=== PATIENT | female | born 1965 | race Caucasian/White ===

== ENCOUNTER 2016-12-15 18:39 | Emergency (ER) | payer OTHER ==
[~2016-12-15] VITALS: Ht 177.8 cm; Wt 93.0 kg
[~2016-12-15 18:39] MED LIST: DICL1GEL12 TOP; IBUP-103 PO; NRN600 PO; TRAZ50TA35 PO
[2016-12-15 18:44] VITALS: BP 125/85; PULSE 69; TEMP 37; O2SAT 96; Ht 177.8 cm; Wt 93.0 kg
[2016-12-15] MEDS ORDERED: SERT1TAB68 PO (19:48)
[2016-12-15] MEDS ORDERED: DIVA500T59 PO (19:48)
[2016-12-15] MEDS ORDERED: ABL10 PO (19:48)
[2016-12-15] MEDS ORDERED: IBUP-1451 PO (20:02)
[2016-12-15] MEDS ORDERED: HYDR-5688 PO (20:04)
[2016-12-15] MEDS ORDERED: MoRPHine SULFATE 10 MG/ML CARP/VIAL IM STA (20:09)
[2016-12-15] MEDS ORDERED: DEXAMETHASONE INJ 10 MG in SYRINGE 0 ML IV ONE (20:15)
--- NOTE | 2016-12-19 08:57 | EMERGENCY ROOM VISIT NOTE ---
ED Visit Note First contact with patient: 18:56 Chief Complaint: Lumbar back pain. History of Present Illness: Ms. Kulkarni is a 51-year-old white female who is brought into the ED via wheelchair accompanied by female friend complaining of lumbar back pain. Historically patient reports she has a history of chronic back pain and was recently seen at a local pain management clinic. At that time steroid injections were discussed and is supposed to start in approximately one week. Additionally from her medical records she had an MRI performed of the lumbar spine on October 13 and showed L3-L4 and L4-L5 minimal disc bulging with mild facet arthrosis and L5-S1 disc space narrowing. Patient reports she has been having increasing pain over the last 2 weeks in the lumbar spine. She describes it as a band over the L4 to S1 area across the lower back. She describes her pain as a sharp sensation. She rates her discomfort 10/10. There is minimal radiation into the upper buttock area bilaterally. Her pain worsens with all movements of the back, palpation and positional changes. She has not identified any alleviating factors related to the pain. She does report she has been using Voltaren and ibuprofen without relief of her discomfort. She denies any associated symptoms including fevers, chills, sweats, skin eruptions,, neck and thoracic back pain, abdominal pain, nausea, vomiting, diarrhea, constipation, rectal bleeding, black/tarry stools, urinary symptoms, hematuria, vaginal bleeding, vaginal discharge, bowel and bladder dysfunction, rectal/genital paresthesias, lower extremity weakness/ numbness/tingling. Review of Systems: As noted above in history of present illness. 8 body systems were reviewed and found to be negative as noted above. Past Medical History: As previously noted, status post cholecystectomy, bladder surgery with sleeping, partial hysterectomy, drug and alcohol abuse. Current Medications: Medications Dose Route/Sig Max Daily Dose Days Date Category Dose Instructions Motrin (Ibuprofen) 800 Mg Tab 800 Mg PO UD PRN 12/15/16 Reported Trazodone (Trazodone HCl) 50 Mg Tab 50-100 Mg PO HS PRN 11/05/16 Reported Gabapentin 600 Mg Tab 600 Mg PO QID 11/05/16 Reported Voltaren 1% Top Gel (Diclofenac Sodium (Topical)) 1 % Gel 1 Appln TOP BID 11/05/16 Reported Abilify (Aripiprazole) 10 Mg Tab 10 Mg PO DAILY 10/12/16 Reported Depakote (Divalproex Sodium) 500 Mg Tab 500 Mg PO BID 10/12/16 Reported Zoloft (Sertraline Hcl) 100 Mg Tab 200 Mg PO DAILY 10/12/16 Reported Allergies to Medications: Latex. Social History: Patient is currently employed; she feels safe in her home environment; she admits to tobacco use and denies alcohol use. Physical Examination: Vital Signs: Date Time Temp Pulse Resp B/P Pulse Ox O2 Delivery O2 Flow Rate FiO2 12/15/16 18:44 37.0 69 17 125/85 96 Room Air GENERAL: 51-year-old female in moderate distress due to pain, nontoxic-appearing , afebrile and hemodynamically stable. NEUROLOGICAL: Awake, alert and oriented to person, place and time. Answering questions appropriately and following commands. Normal gait. Good hand eye coordination. No focal motor sensory deficits. SKIN: Warm, dry and pink. No soft tissue eruptions or trauma noted. HEENT: Atraumatic and normocephalic. PERRLA. Sclera white and conjunctiva pink. No drainage from naris. Oral cavity moist and pink. Pharynx is nonerythematous or edematous. Speech normal. No lymphadenopathy. Trachea midline. No jugular venous distention. BACK: No tenderness over the bony cervical and thoracic spine. No CVA tenderness. Moderate tenderness diffusely through the lumbar spine predominantly over the L4-L5 area but also the related paraspinous musculature without spasm. No bony deformity, bony crepitus, step-offs or ecchymosis. Negative straight leg raise test. THORAX: Lungs sounds are clear to auscultation and equal bilaterally with symmetrical chest wall. No wheezing, rales or rhonchi. No crepitus, tenderness , subcutaneous air or deformities noted. HEART: Regular rate and rhythm. No gallops, rubs or murmurs are appreciated. ABDOMEN: Flat, soft and nontender. Positive bowel sounds in all quadrants. No guarding, rigidity or organomegaly. LOWER EXTREMITIES: No gross bony deformity. 5/5 muscle strength in flexion, extension, abduction and abduction of the hips, flexion and extension of the knees, plantar flexion and dorsiflexion of the ankles and flexion and extension of the great toes. 2+ patellar and Achilles tendon reflexes intact and equal bilaterally. She is able to distinguish light sensations through all dermatomes of lower legs and feet. No dependent edema. No calf tenderness or cords. Feet warm and pink and capillary refill is brisk. ED Course: Patient is assessed as noted above. Patient was given IM injections of 10 mg of morphine and 10 mg of Decadron. Patient was educated about tonight's findings and instructed on her treatment plan; she verbalizes understanding and agreement with this plan. Clinical Impression: Acute on chronic back pain. Disposition: Patient discharged home in stable condition accompanied by female friends; prior to departure she was reassessed and rated her discomfort 9/10. Plan: Comfort measures were discussed with the patient a sliding pain medicine scale of ibuprofen, acetaminophen and [place]; appropriate narcotic precautions were given to the patient, rest, ice, proper lifting movements. Patient was encouraged to follow-up with pain management and inform them of today's ED visit. Patient was encouraged return ED for uncontrolled pain, fevers, genital/rectal paresthesias, bowel and bladder dysfunction or lower extremity weakness/numbness /tingling or any new/concerning symptoms.
[2016-12-22] MEDS ORDERED: BUPR-83 PO (15:06)
[2017-06-16] MEDS ORDERED: TRAZ50TA35 PO (15:51)
[2017-06-16] MEDS ORDERED: ULT50X PO (15:51)
[2017-08-07] MEDS ORDERED: CLN150 PO (08:26)
== END 2016-12-15 20:57 | disposition home or self-care (01) ==
LOC: C.EDB 18:41 → C.EDD 20:57
DX: M54.5 Low back pain (principal); G89.29 Other chronic pain; F17.200 Nicotine dependence, unspecified, uncomplicated; Z90.49 Acquired absence of other specified parts of digestive tract

== ENCOUNTER 2017-06-15 12:01 | Observation (INO) | payer OTHER ==
[~2017-06-15] VITALS: Ht 177.8 cm; Wt 96.6 kg
[~2017-06-15 12:01] MED LIST changes: +ABL10 PO; +BUPR-83 PO; +DIVA500T59 PO; +HYDR-5688 PO; -IBUP-103 PO; +IBUP-1451 PO; +SERT1TAB68 PO
[2017-06-15] MEDS ORDERED: WLLSR/150 PO (12:43)
[2017-06-15] MEDS ORDERED: BACL10TA PO (12:43)
[2017-06-15] MEDS ORDERED: OXYB5TAB74 PO (12:43)
[2017-06-15] MEDS ORDERED: DICY10CA55 PO (12:43)
[2017-06-15] MEDS ORDERED: ATOR10TA88 PO (12:43)
[2017-06-15] MEDS ORDERED: MELO7.5T5 PO (12:43)
[2017-06-15] MEDS ORDERED: MELO15TA4 PO (12:44)
[2017-06-15] MEDS ORDERED: ASPIRIN 81 MG CHEW PO STA (12:59)
[2017-06-15] MEDS ORDERED: NITROGLYCERIN 0.4 MG SL PER TAB CHARGE SL STA ×2 (12:59→13:23)
--- NOTE | 2017-06-15 13:00 | EMERGENCY ROOM VISIT NOTE ---
History Report prepared by Christy: Afsaneh Martino Under the Supervision of: Dr. Enzo Massey M.D. First contact with patient: 12:51 Chief Complaint: CARDIAC ASSESSMENT Stated Complaint: CHEST PRESSURE,UPPER BACK PAIN Nursing Triage Summary: Pt c/o mid sternal chest pain for approx 2 hours, dull pain, 6/10. States she felt nauseous and run down all weekend. Radiates to upper back. History of Present Illness The patient is a 52 year old female who presents to the Emergency Room with complaints of constant chest pressure beginning 4 hours ago. The patient states that she has not been feeling well over the weekend and has been feeling tired and nauseous. She reports that when she was getting ready for work this morning she began to have chest pressure that radiates to her upper back. She complains of intermittent diaphoresis and a headache. The patient denies any arm pain, vomiting, abdominal pain, shortness of breath, and recent travel. She notes that her pain is not worsened by anything. The patient rates her pain as a 6/10 in severity. Source of History: patient Onset: 4 hours ago Position: chest Symptom Intensity: 6/10 Quality: pressure Timing: constant Modifying Factors (Worsening): other (none) Associated Symptoms: + diaphoresis, + nausea, + back pain, No SOB, No vomiting, No abdominal pain Note: Pt denies any arm pain. Review of Systems See HPI for pertinent positives & negatives. A total of 10 systems reviewed and were otherwise negative. Past Medical & Surgical Medical Problems: (1) Bipolar disorder (2) Chronic back pain (3) Fibula fracture (4) Migraines Surgical Problems: (1) H/O arthroscopic knee surgery (2) History of partial hysterectomy (3) Hx of bladder repair surgery (4) Hx of cholecystectomy Old medical records were reviewed. Nurse's notes were reviewed and I agree with. Family History FH: Parkinson's disease FH: asthma FHx: cancer Social History Smoking Status: Current Every Day Smoker Drug Use: none Marital Status: Occupation Status: employed Current/Historical Medications Scheduled Aripiprazole (Abilify), 10 MG PO DAILY Atorvastatin (Lipitor), 10 MG PO DAILY Baclofen (Lioresal), 10 MG PO TID Bupropion Hcl (Wellbutrin Sr), 150 MG PO DAILY Divalproex Sodium (Depakote), 500 MG PO BID Gabapentin (Gabapentin), 600 MG PO QID Meloxicam (Meloxicam), 15 MG PO DAILY Oxybutynin Chloride (Ditropan), 5 MG PO DAILY Sertraline Hcl (Zoloft), 200 MG PO DAILY Trazodone Hcl (Trazodone), 100 MG PO HS Scheduled PRN Dicyclomine Hcl (Bentyl), 10 MG PO TID PRN for abdominal pain Allergies Coded Allergies: Latex (Verified Allergy, Unknown, anaphalaxis, 06/15/17) Physical Exam Vital Signs Date Time Temp Pulse Resp B/P (MAP) Pulse Ox O2 Delivery O2 Flow Rate FiO2 06/15/17 16:38 72 06/15/17 14:49 70 16 125/89 94 Room Air 06/15/17 14:03 68 18 131/82 99 Room Air 06/15/17 13:50 75 18 137/87 100 Room Air 06/15/17 13:28 103 24 132/94 96 Room Air 06/15/17 13:18 111 22 132/97 94 Room Air 06/15/17 13:11 83 22 141/95 98 Room Air 06/15/17 12:36 95 Room Air 06/15/17 12:30 99 06/15/17 12:14 98 Room Air 06/15/17 12:11 36.5 96 18 150/92 98 Room Air Physical Exam General: Well developed well nourished middle aged female in no acute distress, breathing comfortably on room air. Normal speech HEENT: Normal cephalic atraumatic. Pupils are equal round and reactive to light. Extraocular movements are intact. Oropharynx is pink with moist mucous membranes. No swelling of the mouth lips or tongue. Neck: Supple with a midline trachea. No meningeal signs or stiffness, no JVD or bruits. No Stridor. Chest: Clear to auscultation bilaterally. No wheezes or rhonchi. No increased work of breathing. Heart: regular rate and rhythm. Abdomen: Soft nontender, nondistended without rebound guarding or rigidity. Extremities: No cyanosis clubbing or edema. No calf tenderness or assymetry Spine/Back. Non tender to palpation. No CVA tenderness Skin: Good turgor without rashes. Neurologic exam: Cranial nerves two through 12 are intact. Motor and sensation are intact and symmetrical throughout. Medical Decision & Procedures ER Provider Diagnostic Interpretation: X-ray results as stated below per interpretation by me and the radiologist: CHEST ONE VIEW PORTABLE FINDINGS: Lung volumes are normal. No pneumothorax or pleural effusion is present. There is no consolidation. Pulmonary vascularity is normal. Cardiomediastinal silhouette is normal. IMPRESSION: No acute cardiopulmonary findings. Electronically signed by: Damon English M.D. 06/15/2017 1:33 PM Dictated Date/Time: 06/15/2017 1:33 PM Laboratory Results 06/15/17 13:54 Red Blood Count 4.92, Mean Corpuscular Volume 91.9, Mean Corpuscular Hemoglobin 32.3, Mean Corpuscular Hemoglobin Concent 35.2, Mean Platelet Volume 9.4, Neutrophils (%) (Auto) 50.2, Lymphocytes (%) (Auto) 40.3, Monocytes (%) (Auto) 5.4, Eosinophils (%) (Auto) 3.4, Basophils (%) (Auto) 0.6, Neutrophils # (Auto) 5.01, Lymphocytes # (Auto) 4.03, Monocytes # (Auto) 0.54, Eosinophils # (Auto) 0.34, Basophils # (Auto) 0.06 06/15/17 13:54 Test 06/15/17 13:06 06/15/17 13:54 Bedside D-Dimer 409 ng/mlFEU (0-450) Bedside Troponin I < 0.030 ng/ml (0-0.045) White Blood Count 9.99 K/uL (4.8-10.8) Red Blood Count 4.92 M/uL (4.2-5.4) Hemoglobin 15.9 g/dL (12.0-16.0) Hematocrit 45.2 % (37-47) Mean Corpuscular Volume 91.9 fL (80-100) Mean Corpuscular Hemoglobin 32.3 pg (25-34) Mean Corpuscular Hemoglobin Concent 35.2 g/dl (32-36) Platelet Count 276 K/uL (130-400) Mean Platelet Volume 9.4 fL (7.4-10.4) Neutrophils (%) (Auto) 50.2 % Lymphocytes (%) (Auto) 40.3 % Monocytes (%) (Auto) 5.4 % Eosinophils (%) (Auto) 3.4 % Basophils (%) (Auto) 0.6 % Neutrophils # (Auto) 5.01 K/uL (1.4-6.5) Lymphocytes # (Auto) 4.03 K/uL (1.2-3.4) Monocytes # (Auto) 0.54 K/uL (0.11-0.59) Eosinophils # (Auto) 0.34 K/uL (0-0.5) Basophils # (Auto) 0.06 K/uL (0-0.2) RDW Standard Deviation 43.1 fL (36.4-46.3) RDW Coefficient of Variation 12.9 % (11.5-14.5) Immature Granulocyte % (Auto) 0.1 % Immature Granulocyte # (Auto) 0.01 K/uL (0.00-0.02) Prothrombin Time 10.2 SECONDS (9.0-12.0) Prothromb Time International Ratio 1.0 (0.9-1.1) Activated Partial Thromboplast Time 25.8 SECONDS (21.0-31.0) Partial Thromboplastin Ratio 1.0 Anion Gap 6.0 mmol/L (3-11) Est Creatinine Clear Calc Drug Dose 106.3 ml/min Estimated GFR () 99.6 Estimated GFR (Non- 86.0 BUN/Creatinine Ratio 21.4 (10-20) Calcium Level 9.6 mg/dl (8.5-10.1) Total Bilirubin 0.2 mg/dl (0.2-1) Direct Bilirubin < 0.1 mg/dl (0-0.2) Aspartate Amino Transf (AST/SGOT) 15 U/L (15-37) Alanine Aminotransferase (ALT/SGPT) 29 U/L (12-78) Alkaline Phosphatase 115 U/L (45-117) Total Creatine Kinase 42 U/L (26-192) Creatine Kinase MB 0.5 ng/ml (0.5-3.6) Creatine Kinase MB Ratio 1.2 (0-3.0) Total Protein 7.3 gm/dl (6.4-8.2) Albumin 3.8 gm/dl (3.4-5.0) Lipase 117 U/L (73-393) Thyroid Stimulating Hormone (TSH) 1.320 uIu/ml (0.300-4.500) Valproic Acid (Depakene) Level 3 mcg/ml (50-100) Laboratory studies as stated above per my review. Medications Administered Medications (Trade) Dose Ordered Sig/Concha Route Start Time Stop Time Status Last Admin Dose Admin Aspirin (Aspirin Chew) 324 mg NOW STAT PO 06/15/17 12:59 06/15/17 13:03 DC 06/15/17 13:09 324 MG Nitroglycerin (Nitrostat Tab) 0.4 mg NOW STAT SL 06/15/17 12:59 06/15/17 13:03 DC 06/15/17 13:11 0.4 MG Nitroglycerin (Nitrostat Tab) 0.4 mg NOW STAT SL 06/15/17 13:23 06/15/17 13:25 DC 06/15/17 13:28 0.4 MG Sodium Chloride 1,000 ml @ 999 mls/hr Q1H1M STAT IV 06/15/17 13:41 06/15/17 14:41 DC 06/15/17 13:48 999 MLS/HR Sodium Chloride 1,000 ml @ 150 mls/hr Q6H40M ONCE IV 06/15/17 13:41 06/15/17 20:20 06/15/17 14:18 150 MLS/HR Morphine Sulfate (MoRPHine SULFATE INJ) 4 mg NOW STAT IV 06/15/17 13:41 06/15/17 13:42 DC 06/15/17 13:49 4 MG Ondansetron HCl (Zofran Inj) 4 mg NOW STAT IV 06/15/17 13:41 06/15/17 13:42 DC 06/15/17 13:48 4 MG Al Hydroxide/Mg Hydroxide (Maalox Susp) 30 ml STK-MED ONCE .ROUTE 06/15/17 15:42 06/15/17 15:43 DC 06/15/17 15:45 30 ML Lidocaine HCl (Viscous Lidocaine 2% Soln) 20 ml STK-MED ONCE .ROUTE 06/15/17 15:43 06/15/17 15:44 DC 06/15/17 15:45 20 ML Morphine Sulfate (MoRPHine SULFATE INJ) 4 mg STK-MED ONCE .ROUTE 06/15/17 16:25 06/15/17 16:26 DC 06/15/17 16:29 4 MG ECG Indication: chest pain Rate (beats per minute): 77 Rhythm: normal sinus Findings: no acute ischemic change, no ectopy Comparison ECG Date: no prior available Change: EKG #2: Normal Sinus 67, no ischemic changes, no ectopy, compared to EKG #1 no changes. ED Course 2150: Past medical records reviewed. The patient was evaluated in room B2, and a complete history and physical examination were performed. 1259: Nitroglycerin 0.4mg SL, Aspirin Chew 324mg PO. 1323: Nitroglycerin 0.4mg SL. 1341: Zofran Inj 4mg IV, Morphine Sulfate 4mg IV, Sodium Chloride 1000 ml @ 150 mls/hr IV, Sodium Chloride 1000 ml @ 999 mls/hr IV. 1352: I reevaluated and updated the patient. She had no relief with the nitroglycerin. 1419: I reevaluated the patient. She is feeling better. 1501: I reevaluated the patient. She is feeling more comfortable. 1508: Discussed the patient's case with Dr. Douglass of [facility]. The patient will be evaluated for further management. 1515: Upon reevaluation, the patient is doing well. I discussed the results and treatment plan with the patient. She verbalized agreement of the treatment plan. The patient will be evaluated for further management. Medical Decision Differential diagnosis includes acute coronary, syndrome arrhythmia, PE, musculoskeletal, GERD. This patient comes in as described above. She's had chest pain since this morning. it is central. She looks well on exam except for having some sinus tachycardia. It is not reproducible or pleuritic. IV access was established was given aspirin 325 mg chewable. She was also given nitroglycerin 2 sublingual. EKG does not suggest acute coronary syndrome or arrhythmia. Multiple blood testing was obtained as well as chest x-ray. Second EKG shows no change. EKG #1 and they're both nonischemic appearing her cardiac biomarkers are negative. D-dimer is negative at a low pretest probability said he makes PE highly unlikely. Chest x-ray does not suggest congestive heart failure pneumonia or pneumothorax. She's had no acute electrolyte or metabolic abnormalities. The nitroglycerin did not seem to help. She was given morphine 4 mg IV and Zofran 4 mg IV. This did seem to help and she seemed much more comfortable. She does have cardiac risk factors of being a smoker and having high blood pressure. Her symptoms are somewhat atypical but they're also not reproducible or GI sounding. I have consulted the [facility] hospitalist for likely observation for further treatment and evaluation. The patient was in agreement of the plan. Medication Reconcilliation Current Medication List: was personally reviewed by me Blood Pressure Screening Patient's blood pressure: Elevated blood pressure Blood pressure disposition: Elevated BP felt to be situational Consults Time Called: 1505 Consulting Physician: Dr. Rafat Jorge Returned Call: 1508 Discussed the patient's case with Dr. Douglass of [facility]. The patient will be evaluated for further management. Impression Primary Impression: Precordial chest pain Scribe Attestation The scribe's documentation has been prepared under my direction and personally reviewed by me in its entirety. I confirm that the note above accurately reflects all work, treatment, procedures, and medical decision making performed by me. Departure Information Dispostion Being Evaluated By Hospitalist Referrals Victorina Dotson D.O. (PCP) Patient Instructions My [facility]
[2017-06-15 13:26] LABS: POINT OF CARE TROPONIN I < 0.030 ng/ml (0-0.045)
--- NOTE | 2017-06-15 13:35 | DIAGNOSTIC IMAGING REPORT ---
CHEST ONE VIEW PORTABLE CLINICAL HISTORY: Chest pain. Upper back pain. Chest pressure. COMPARISON STUDY: Chest radiograph November 05, 2016. FINDINGS: Lung volumes are normal. No pneumothorax or pleural effusion is present. There is no consolidation. Pulmonary vascularity is normal. Cardiomediastinal silhouette is normal. IMPRESSION: No acute cardiopulmonary findings. Electronically signed by: Damon English M.D. 06/15/2017 1:33 PM Dictated Date/Time: 06/15/2017 1:33 PM
[2017-06-15] MEDS ORDERED: ONDANSETRON INJ 2 MG/ML 2 ML VIAL IV STA (13:41)
[2017-06-15] MEDS ORDERED: SODIUM CHLORIDE 0.9% 1000ML 1,000 ML IV ONE (13:41)
[2017-06-15] MEDS ORDERED: SODIUM CHLORIDE 0.9% 1000ML 1,000 ML IV STA (13:41)
[2017-06-15] MEDS ORDERED: MoRPHine SULFATE 4 MG/ML 1 ML CARP\\VIAL IV STA (13:41)
[2017-06-15 14:10] LABS: BASO % 0.6 %; BASO ABS # 0.06 K/uL (0-0.2); COMPLETE YES; EOS % 3.4 %; HEMATOCRIT 45.2 % (37-47); IG% 0.1 %; LYMPH % 40.3 %; LYMPH ABS # 4.03 K/uL (1.2-3.4); MEAN CELL VOLUME 91.9 fL (80-100); MEAN CORPUSCULAR HEMOGLOBIN 32.3 pg (25-34); MEAN CORPUSCULAR HGB CONC 35.2 g/dl (32-36); MEAN PLATELET VOLUME 9.4 fL (7.4-10.4); MONO % 5.4 %; NEUT % 50.2 %; PLATELET COUNT 276 K/uL (130-400); RED BLOOD COUNT 4.92 M/uL (4.2-5.4); WHITE BLOOD COUNT 9.99 K/uL (4.8-10.8)
[2017-06-15 14:27] LABS: ALT/SGPT 29 U/L (12-78); BLOOD UREA NITROGEN 17 mg/dl (7-18); BUN/CREATININE RATIO 21.4 (10-20); CALCIUM 9.6 mg/dl (8.5-10.1); CARBON DIOXIDE 29 mmol/L (21-32); CHLORIDE 107 mmol/L (98-107); GLUCOSE 73 mg/dl (70-99); POTASSIUM 3.6 mmol/L (3.5-5.1); SODIUM 142 mmol/L (136-145)
[2017-06-15 14:32] LABS: PROTHROMBIN TIME (PATIENT) 10.2 SECONDS (9.0-12.0)
[2017-06-15 14:38] LABS: ALKALINE PHOSPHATASE 115 U/L (45-117); AST/SGOT 15 U/L (15-37); CKMB/CK RATIO 1.2 (0-3.0)
[2017-06-15] MEDS ORDERED: ALUMINUM/MAGNESIUM SUSP 30 ML UDC ONE (15:42)
[2017-06-15] MEDS ORDERED: LIDOCAINE HCL 2% VISC SOLN 20 ML UDC ONE (15:43)
[2017-06-15] MEDS ORDERED: ACETAMINOPHEN 325 MG TAB PO PRN (15:45)
[2017-06-15] MEDS ORDERED: ONDANSETRON INJ 2 MG/ML 2 ML VIAL IV PRN (15:45)
[2017-06-15] MEDS ORDERED: NITROGLYCERIN 0.4 MG SL PER TAB CHARGE SL PRN (15:45)
[2017-06-15] MEDS ORDERED: GI COCKTAIL PO ONE (15:45)
[2017-06-15] MEDS ORDERED: IV FLUIDS COMPLETED PRN (16:15)
[2017-06-15] MEDS ORDERED: MoRPHine SULFATE 4 MG/ML 1 ML CARP\\VIAL ONE (16:25)
--- NOTE | 2017-06-15 16:33 | History and Physical ---
History & Physical Date & Time of Service: Jun 15, 2017 ~ 15:15 Chief Complaint: Chest Pain Primary Care Physician: Victorina Dotson D.O. History of Present Illness 52 year old female who presents to the ER with chest pain. Patient reports she was feeling poorly over the weekend with nausea, fatigue, and episodes of diaphoresis. She reports yesterday she had a few episodes of chest / epigastric pain. She denies any specific causative factors and symptoms would resolve on their own. She reports she had a restless night of sleep last night with discomfort. This morning when she woke up the discomfort was more persistent. She describes it as a burning and squeezing sensation with radiation to the back. She rates the pain #8/10 at its worst. Pain is located in the epigastric area / lower mid chest with mild radiation into the left side of the chest. She denies any associated jaw, neck, shoulder, or arm pain. She received two SL nitro in the ED without any improvement in the pain and then received IV Morphine with some relief. She reports feeling occasional palpitations. No shortness of breath. She denies lightheadedness, dizziness, or syncopal events. No vomiting or diarrhea. She denies fever and chills. No urinary symptoms. In the ER, initial troponin is negative, EKG does not show any acute ST changes. Vitals are stable. Past Medical/Surgical History Medical Problems: (1) Bipolar disorder Status: Chronic (2) Chronic back pain Status: Chronic (3) Fibula fracture Permanent Comment: R, s/p ORIF Status: Chronic (4) Migraines Status: Chronic Surgical Problems: (1) H/O arthroscopic knee surgery Status: Chronic (2) History of partial hysterectomy Status: Chronic (3) Hx of bladder repair surgery Status: Chronic (4) Hx of cholecystectomy Status: Chronic Family History FH: CAD (coronary artery disease) GRANDFATH[place] FH: Parkinson's disease MOTHER Social History Smoking Status: Current Every Day Smoker Alcohol Use: none Drug Use: none Immunizations History of Influenza Vaccine: Yes Influenza Vaccine Date: Oct 09, 2016 Allergies Coded Allergies: Latex (Verified Allergy, Unknown, anaphalaxis, 06/15/17) Home Medications Scheduled Aripiprazole (Abilify), 10 MG PO DAILY Atorvastatin (Lipitor), 10 MG PO DAILY Baclofen (Lioresal), 10 MG PO TID Bupropion Hcl (Wellbutrin Sr), 150 MG PO DAILY Divalproex Sodium (Depakote), 500 MG PO BID Gabapentin (Gabapentin), 600 MG PO QID Meloxicam (Meloxicam), 15 MG PO DAILY Oxybutynin Chloride (Ditropan), 5 MG PO DAILY Sertraline Hcl (Zoloft), 200 MG PO DAILY Trazodone Hcl (Trazodone), 100 MG PO HS Scheduled PRN Dicyclomine Hcl (Bentyl), 10 MG PO TID PRN for abdominal pain Review of Systems ROS per HPI, all other systems reviewed and negative Physical Exam Vital Signs Date Time Temp Pulse Resp B/P (MAP) Pulse Ox O2 Delivery O2 Flow Rate FiO2 06/15/17 14:49 70 16 125/89 94 Room Air 06/15/17 14:03 68 18 131/82 99 Room Air 06/15/17 13:50 75 18 137/87 100 Room Air 06/15/17 13:28 103 24 132/94 96 Room Air 06/15/17 13:18 111 22 132/97 94 Room Air 06/15/17 13:11 83 22 141/95 98 Room Air 06/15/17 12:36 95 Room Air 06/15/17 12:30 99 06/15/17 12:14 98 Room Air 06/15/17 12:11 36.5 96 18 150/92 98 Room Air General Appearance: no apparent distress Head: normocephalic Eyes: normal inspection ENT: hearing grossly normal Neck: supple, no JVD Respiratory/Chest: chest non-tender, lungs clear, normal breath sounds, no respiratory distress Cardiovascular: regular rate, rhythm, no edema, normal peripheral pulses Abdomen/GI: normal bowel sounds, non tender, soft Extremities/Musculoskelatal: normal inspection, no calf tenderness Neurologic/Psych: no motor/sensory deficits, alert, normal mood/affect, oriented x 3 Skin: normal color, warm/dry Diagnostics Laboratory Results Results Past 24 Hours Test 06/15/17 12:59 06/15/17 13:06 06/15/17 13:54 Range/Units Creatine Kinase MB Ratio 1.2 0-3.0 Bedside D-Dimer 409 0-450 ng/mlFEU Bedside Troponin I < 0.030 0-0.045 ng/ml White Blood Count 9.99 4.8-10.8 K/uL Red Blood Count 4.92 4.2-5.4 M/uL Hemoglobin 15.9 12.0-16.0 g/dL Hematocrit 45.2 37-47 % Mean Corpuscular Volume 91.9 80-100 fL Mean Corpuscular Hemoglobin 32.3 25-34 pg Mean Corpuscular Hemoglobin Concent 35.2 32-36 g/dl Platelet Count 276 130-400 K/uL Mean Platelet Volume 9.4 7.4-10.4 fL Neutrophils (%) (Auto) 50.2 % Lymphocytes (%) (Auto) 40.3 % Monocytes (%) (Auto) 5.4 % Eosinophils (%) (Auto) 3.4 % Basophils (%) (Auto) 0.6 % Neutrophils # (Auto) 5.01 1.4-6.5 K/uL Lymphocytes # (Auto) 4.03 1.2-3.4 K/uL Monocytes # (Auto) 0.54 0.11-0.59 K/uL Eosinophils # (Auto) 0.34 0-0.5 K/uL Basophils # (Auto) 0.06 0-0.2 K/uL RDW Standard Deviation 43.1 36.4-46.3 fL RDW Coefficient of Variation 12.9 11.5-14.5 % Immature Granulocyte % (Auto) 0.1 % Immature Granulocyte # (Auto) 0.01 0.00-0.02 K/uL Prothrombin Time 10.2 9.0-12.0 SECONDS Prothromb Time International Ratio 1.0 0.9-1.1 Activated Partial Thromboplast Time 25.8 21.0-31.0 SECONDS Partial Thromboplastin Ratio 1.0 Sodium Level 142 136-145 mmol/L Potassium Level 3.6 3.5-5.1 mmol/L Chloride Level 107 98-107 mmol/L Carbon Dioxide Level 29 21-32 mmol/L Anion Gap 6.0 3-11 mmol/L Blood Urea Nitrogen 17 7-18 mg/dl Creatinine 0.80 0.60-1.20 mg/dl Est Creatinine Clear Calc Drug Dose 106.3 ml/min Estimated GFR () 99.6 Estimated GFR (Non- 86.0 BUN/Creatinine Ratio 21.4 10-20 Random Glucose 73 70-99 mg/dl Calcium Level 9.6 8.5-10.1 mg/dl Total Bilirubin 0.2 0.2-1 mg/dl Direct Bilirubin < 0.1 0-0.2 mg/dl Aspartate Amino Transf (AST/SGOT) 15 15-37 U/L Alanine Aminotransferase (ALT/SGPT) 29 12-78 U/L Alkaline Phosphatase 115 45-117 U/L Total Creatine Kinase 42 26-192 U/L Creatine Kinase MB 0.5 0.5-3.6 ng/ml Total Protein 7.3 6.4-8.2 gm/dl Albumin 3.8 3.4-5.0 gm/dl Lipase 117 73-393 U/L Thyroid Stimulating Hormone (TSH) 1.320 0.300-4.500 uIu/ml Valproic Acid (Depakene) Level 3 50-100 mcg/ml Diagnostic Radiology CXR IMPRESSION: No acute cardiopulmonary findings. Impression Assessment and Plan CHEST / EPIGASTRIC PAIN - admit to tele - patient presenting with symptoms of fatigue and nausea x 3 days, and lower chest / epigastric discomfort that developed yesterday and became more persistent today - risk factors for ACS: tobacco use, HLD - in the ER, initial troponin negative, EKG without acute ST changes - no relief in pain with SL nitro or GI cocktail, mild relief with IV Morphine - will obtain CTA chest to evaluate for dissection - noted normal D. Dimer - suspect symptoms are GI in nature, however will rule out ACS - continue to cycle cardiac enzymes, dobutamine stress in AM (patient unable to exercise due to chronic pain / hx of right fibula fracture) - s/p full dose ASA in ED, will continue with 81mg daily - continue statin, check lipid panel in AM - start PPI CHRONIC BACK PAIN - continue gabapentin BIPOLAR DISORDER - continue trazodone, bupropion, sertraline, Depakote, and Abilify DVT PROPHYLAXIS - SQ Lovenox DISPO - The patient will be placed as observation status for now until further work up is complete. Attending addendum: Agree with the above H&P; please refer to above for more detail Patient presents with constant chest pain that has been worse today and reports some radiation into her back. Chest pain is just left of the sternum in the mid to lower chest. Denies any association with breathing or food intake. Denies any GERD/heartburn symptoms. Cardiac: RR, S1 and S2 auscultated; chest pain not reproducible Resp: CTA B/L, no wheezes or rales GI: soft, NT, ND, +BS CHEST PAIN: atypical -most likely related to GI source although patient denies any improvement in pain following GI cocktail -per patient was not relieved by nitro either -had some relief with morphine but patient states her pain a 6 but appears completely comfortable -doubt ACS; will order serial CMs and TTE -CT to rule out dissection -D dimer negative so unlikely PE VTE Prophylaxis VTE Risk Assessment Done? Y/N: Yes Risk Level: Moderate
[2017-06-15 16:47] VITALS: BP 125/89; PULSE 70; TEMP 36.5; O2SAT 97; Ht 177.8 cm; Wt 96.6 kg
[2017-06-15 17:03] VITALS: O2SAT 94
[2017-06-15] MEDS ORDERED: OPTIRAY 320 IV PRN (17:30)
--- NOTE | 2017-06-15 17:32 | DIAGNOSTIC IMAGING REPORT ---
Study: CT angiography of the chest. HISTORY: Chest pain FINDINGS: Pulmonary arterial vasculature enhances appropriately. No major filling defects. Thoracic aorta is normal in course and caliber. No evidence for aneurysm or dissection. Lungs are clear. Several upper abdominal varices. Prior cholecystectomy. 1 cm stable splenic arterial aneurysm. IMPRESSION: 1. Negative thoracic aorta. 2. Lungs are clear. 3. No evidence for pulmonary embolus. Electronically signed by: Thierno Sims M.D. 06/15/2017 5:31 PM Dictated Date/Time: 06/15/2017 5:27 PM
[2017-06-15 17:39] VITALS: BP 137/91; PULSE 73; TEMP 36.5; O2SAT 97
[2017-06-15] MEDS ORDERED: MoRPHine SULFATE 4 MG/ML 1 ML CARP\\VIAL IV ONE (17:39)
[2017-06-15] MEDS: PANTOprazole SOD 40 MG TAB PO SCH (18:28)
[2017-06-15] MEDS: GABAPENTIN 600 MG TAB PO SCH ×2 (18:28→21:08)
[2017-06-15 20:07] VITALS: BP 101/67; PULSE 65; TEMP 36.7; O2SAT 95
[2017-06-15] MEDS ORDERED: ENOXAPARIN 40 MG/0.4 ML SYR SC SCH (21:00)
[2017-06-15] MEDS ORDERED: TRAZODONE HCL 50 MG TAB PO SCH (21:00)
[2017-06-15] MEDS: DIVALPROEX SODIUM 500 MG DELAY RELEASE TAB PO SCH (21:08)
[2017-06-15] MEDS: BACLOFEN 10 MG TAB PO SCH (21:08)
[2017-06-15] MEDS: TRAMADOL HCL 50 MG TAB PO PRN (21:52)
[2017-06-16] VITALS (8 sets, daily range): BP systolic 91–116; BP diastolic 51–83; PULSE 61–80; TEMP 36.4–36.8; O2SAT 92–96
[2017-06-16] MEDS: MoRPHine SULFATE 4 MG/ML 1 ML CARP\\VIAL IV PRN ×3 (02:10→13:30)
[2017-06-16] MEDS: TRAMADOL HCL 50 MG TAB PO PRN (06:12)
[2017-06-16 06:20] LABS: HEMATOCRIT 41.9 % (37-47); MEAN CELL VOLUME 92.9 fL (80-100); MEAN CORPUSCULAR HEMOGLOBIN 31.5 pg (25-34); MEAN CORPUSCULAR HGB CONC 33.9 g/dl (32-36); MEAN PLATELET VOLUME 9.3 fL (7.4-10.4); PLATELET COUNT 224 K/uL (130-400); RED BLOOD COUNT 4.51 M/uL (4.2-5.4); WHITE BLOOD COUNT 7.54 K/uL (4.8-10.8)
[2017-06-16 06:46] LABS: BUN/CREATININE RATIO 18.7 (10-20); CALCIUM 9.2 mg/dl (8.5-10.1); CREATININE 0.74 mg/dl (0.60-1.20); POTASSIUM 4.1 mmol/L (3.5-5.1)
[2017-06-16 06:49] LABS: CHOLESTEROL/HDL RATIO 5.4
--- NOTE | 2017-06-16 08:19 | Gastrointestinal Consultation ---
Gastrointestinal Consultation Date of Consultation: Jun 16, 2017 Attending Physician: Payam Consulting Physician: Misa Reason for Consultation: varices noted on CT History of Present Illness Patient is a 52 year old female w/ PMH significant for chronic diarrhea, back pain, history of narcotic and ETOH abuse who presents in the ED for evaluation of chest pain. GI is consulted for incidental note of varices. Pt was seen and evaluated this AM. She is still having chest pain. Denies any other associated symptoms. She is getting a cardiac workup this AM. She does have a history of ETOH abuse, is not longer drinking any ETOH + NSAIDs daily + caffeine daily CT dissection 06/16/17: Pulmonary arterial vasculature enhances appropriately. No major filling defects. Thoracic aorta is normal in course and caliber. No evidence for aneurysm or dissection. Lungs are clear. Several upper abdominal varices. Prior cholecystectomy. 1 cm stable splenic arterial aneurysm. EGD 12/05/16: A hiatus hernia was present. The entire examined stomach was normal. The ampulla and examined duodenum were normal. EUS 12/05/16: There was no sign of significant pathology in the entire pancreas. There was dilation in the common bile duct which measured up to 9 mm. There was no evidence of significant pathology in the left lobe of the liver. No specimens collected. Colonoscopy 10/30/16: Diverticulosis in the sigmoid colon. One 5 mm polyp in the sigmoid colon. Resected and retrieved. The examination was otherwise normal. Biopsies were taken with a cold forceps for evaluation of microscopic colitis Past Medical/Surgical History Medical Problems: (1) Influenza-like symptoms Status: Acute (2) Splenic artery aneurysm Status: Acute Past Medical History: Bipolar disorder, chronic back pain, migraines, history of narcotic abuse, history of ETOH abuse Past Surgical History: bladder repair surgery, arthroscopic knee surgery, partial hysterectomy, cholecystectomy Family History FH: CAD (coronary artery disease) GRANDFATH[place] ([place] GRANDMOTHER [place] FH: Parkinson's disease MOTHER Social History Smoking Status: Current Every Day Smoker Drug Use: none Allergies Coded Allergies: Latex (Verified Allergy, Unknown, anaphalaxis, 06/15/17) Current Medications Home Meds and Scripts Medications Dose Route/Sig Max Daily Dose Days Date Category Meloxicam 15 Mg Tab 15 Mg PO DAILY 06/15/17 Reported Ditropan (Oxybutynin Chloride) 5 Mg Tab 5 Mg PO DAILY 06/15/17 Reported Bentyl (Dicyclomine Hcl) 10 Mg Cap 10 Mg PO TID PRN 06/15/17 Reported Lipitor (Atorvastatin Calcium) 10 Mg Tab 10 Mg PO DAILY 06/15/17 Reported Lioresal (Baclofen) 10 Mg Tab 10 Mg PO TID 06/15/17 Reported Wellbutrin Sr (Bupropion Hcl) 150 Mg Tabcr 150 Mg PO DAILY 06/15/17 Reported Trazodone (Trazodone HCl) 50 Mg Tab 100 Mg PO HS 11/05/16 Reported Gabapentin 600 Mg Tab 600 Mg PO QID 11/05/16 Reported Abilify (Aripiprazole) 10 Mg Tab 10 Mg PO DAILY 10/12/16 Reported Depakote (Divalproex Sodium) 500 Mg Tab 500 Mg PO BID 10/12/16 Reported Zoloft (Sertraline Hcl) 100 Mg Tab 200 Mg PO DAILY 10/12/16 Reported Review of Systems Constitutional: No fever, No chills Respiratory: No shortness of breath Cardiac: + chest pain Abdomen: No pain, No nausea, No vomiting, No diarrhea, No constipation Physical Exam Date Time Temp Pulse Resp B/P (MAP) Pulse Ox O2 Delivery O2 Flow Rate FiO2 06/16/17 07:59 73 110/75 (87) 06/16/17 07:32 36.4 61 16 91/51 (64) 95 06/16/17 04:21 36.6 64 18 97/63 (74) 92 Room Air 06/16/17 04:00 Room Air 06/16/17 00:47 36.5 73 20 95/64 (74) 92 Room Air 06/16/17 00:33 36.6 78 20 101/61 (74) 92 2.0 06/16/17 00:00 Room Air 06/15/17 20:07 36.7 65 20 101/67 (78) 95 Room Air 06/15/17 20:00 Room Air 06/15/17 17:39 36.5 73 16 137/91 (106) 97 Room Air 06/15/17 17:03 36.5 70 16 125/89 94 06/15/17 16:47 36.5 70 16 125/89 97 Room Air 06/15/17 16:38 72 06/15/17 14:49 70 16 125/89 94 Room Air 06/15/17 14:03 68 18 131/82 99 Room Air 06/15/17 13:50 75 18 137/87 100 Room Air 06/15/17 13:28 103 24 132/94 96 Room Air 06/15/17 13:18 111 22 132/97 94 Room Air 06/15/17 13:11 83 22 141/95 98 Room Air 06/15/17 12:36 95 Room Air 06/15/17 12:30 99 06/15/17 12:14 98 Room Air 06/15/17 12:11 36.5 96 18 150/92 98 Room Air General Appearance: no apparent distress Eyes: PERRL ENT: hearing grossly normal Neck: supple Respiratory/Chest: lungs clear Cardiovascular: regular rate, rhythm Abdomen: normal bowel sounds, non tender, soft, no organomegaly Neurologic/Psych: alert, normal mood/affect, oriented x 3 Skin: normal color Laboratory Results Last 24 Hours Test 06/15/17 12:59 06/15/17 13:06 06/15/17 13:54 06/15/17 18:48 Creatine Kinase MB Ratio 1.2 Bedside D-Dimer 409 ng/mlFEU Bedside Troponin I < 0.030 ng/ml White Blood Count 9.99 K/uL Red Blood Count 4.92 M/uL Hemoglobin 15.9 g/dL Hematocrit 45.2 % Mean Corpuscular Volume 91.9 fL Mean Corpuscular Hemoglobin 32.3 pg Mean Corpuscular Hemoglobin Concent 35.2 g/dl Platelet Count 276 K/uL Mean Platelet Volume 9.4 fL Neutrophils (%) (Auto) 50.2 % Lymphocytes (%) (Auto) 40.3 % Monocytes (%) (Auto) 5.4 % Eosinophils (%) (Auto) 3.4 % Basophils (%) (Auto) 0.6 % Neutrophils # (Auto) 5.01 K/uL Lymphocytes # (Auto) 4.03 K/uL Monocytes # (Auto) 0.54 K/uL Eosinophils # (Auto) 0.34 K/uL Basophils # (Auto) 0.06 K/uL RDW Standard Deviation 43.1 fL RDW Coefficient of Variation 12.9 % Immature Granulocyte % (Auto) 0.1 % Immature Granulocyte # (Auto) 0.01 K/uL Prothrombin Time 10.2 SECONDS Prothromb Time International Ratio 1.0 Activated Partial Thromboplast Time 25.8 SECONDS Partial Thromboplastin Ratio 1.0 Sodium Level 142 mmol/L Potassium Level 3.6 mmol/L Chloride Level 107 mmol/L Carbon Dioxide Level 29 mmol/L Anion Gap 6.0 mmol/L Blood Urea Nitrogen 17 mg/dl Creatinine 0.80 mg/dl Est Creatinine Clear Calc Drug Dose 106.3 ml/min Estimated GFR () 99.6 Estimated GFR (Non- 86.0 BUN/Creatinine Ratio 21.4 Random Glucose 73 mg/dl Calcium Level 9.6 mg/dl Total Bilirubin 0.2 mg/dl Direct Bilirubin < 0.1 mg/dl Aspartate Amino Transf (AST/SGOT) 15 U/L Alanine Aminotransferase (ALT/SGPT) 29 U/L Alkaline Phosphatase 115 U/L Total Creatine Kinase 42 U/L Creatine Kinase MB 0.5 ng/ml Total Protein 7.3 gm/dl Albumin 3.8 gm/dl Lipase 117 U/L Thyroid Stimulating Hormone (TSH) 1.320 uIu/ml Valproic Acid (Depakene) Level 3 mcg/ml Test 06/15/17 19:23 06/15/17 19:42 06/16/17 01:00 06/16/17 01:16 Creatine Kinase MB Ratio Creatine Kinase MB 0.7 ng/ml 0.5 ng/ml Troponin I < 0.015 ng/ml < 0.015 ng/ml Test 06/16/17 05:40 White Blood Count 7.54 K/uL Red Blood Count 4.51 M/uL Hemoglobin 14.2 g/dL Hematocrit 41.9 % Mean Corpuscular Volume 92.9 fL Mean Corpuscular Hemoglobin 31.5 pg Mean Corpuscular Hemoglobin Concent 33.9 g/dl RDW Standard Deviation 44.8 fL RDW Coefficient of Variation 13.2 % Platelet Count 224 K/uL Mean Platelet Volume 9.3 fL Sodium Level 143 mmol/L Potassium Level 4.1 mmol/L Chloride Level 108 mmol/L Carbon Dioxide Level 30 mmol/L Anion Gap 5.0 mmol/L Blood Urea Nitrogen 14 mg/dl Creatinine 0.74 mg/dl Est Creatinine Clear Calc Drug Dose 114.9 ml/min Estimated GFR () 109.5 Estimated GFR (Non- 94.5 BUN/Creatinine Ratio 18.7 Random Glucose 76 mg/dl Calcium Level 9.2 mg/dl Triglycerides Level 238 mg/dl Cholesterol Level 211 mg/dl HDL Cholesterol 39 mg/dl LDL Cholesterol, Calculated 124 mg/dl VLDL Cholesterol, Calculated 48 mg/dl Cholesterol/HDL Ratio 5.4 Impression Patient is a 52 year old female admitted for chest pain - cardiac workup is pending. GI is consulted for incidental finding of gastric varices on CT. Pt had an EGD in November without any evidence of gastric or esophageal varices. She does have a history of ETOH abuse. Her coags, platelets and LFTs are unremarkable. Plan - consider EGD if cardiac workup is negative and chest pain persists - NSAIDs use daily Reviewed case with Dr. Bynum and radiology, no evidence of varices on CT - tortuous splenic artery. GI to sign off. Please call with any questions. No work up needed for findings on CT scan. I have seen , examined and agree with the plan as outlined by KATHERINE Baca as above. -No liver disease -No varices on Imaging or EGD after review with radiology, image consistent with tortuous splenic artery -GERD treatment
[2017-06-16] MEDS ORDERED: ATORVASTATIN 10 MG TAB PO SCH (09:00)
[2017-06-16] MEDS ORDERED: SERTRALINE HCL 100 MG TAB PO SCH (09:00)
[2017-06-16] MEDS ORDERED: OXYBUTYNIN CHLORIDE 5 MG TAB PO SCH (09:00)
[2017-06-16] MEDS ORDERED: ARIPIprazole TAB 10 MG TAB PO SCH (09:00)
[2017-06-16] MEDS ORDERED: ASPIRIN 81 MG ECTAB PO SCH (09:00)
[2017-06-16] MEDS ORDERED: BuPROPion SR 150 MG TABCR PO SCH (09:00)
[2017-06-16] MEDS ORDERED: METOPROLOL TARTRATE 1 MG/ML VIAL ONE (10:12)
[2017-06-16] MEDS ORDERED: ATROPINE SULFATE 0.1 MG/ML 5ML SYR ONE (10:12)
[2017-06-16] MEDS ORDERED: DOBUTamine HCL 12.5 MG/ML 20 ML VIAL ONE (10:12)
[2017-06-16] MEDS: GABAPENTIN 600 MG TAB PO SCH ×2 (11:29→14:00)
[2017-06-16] MEDS: PANTOprazole SOD 40 MG TAB PO SCH (11:29)
[2017-06-16] MEDS: DIVALPROEX SODIUM 500 MG DELAY RELEASE TAB PO SCH (11:30)
[2017-06-16] MEDS: BACLOFEN 10 MG TAB PO SCH ×2 (11:30→14:00)
--- NOTE | 2017-06-16 11:46 | DOBUTAMINE ECHO ---
*NOTICE TO RECEIVING [employer] This information is strictly Confidential and protected under [place] law. [place] law prohibits you from making any further disclosure of this information unless further disclosure is expressly permitted by the written consent of the person to whom it pertains or is authorized by law. A general authorization for the release of medical or other information is not sufficient for this purpose. Hospital accepts no responsibility if the information is made available to any other person, INCLUDING THE PATIENT. Interpretation Summary * Name: ANITA ROME Study Date: 06/16/2017 09:38 AM BP: 111/59 mmHg * Patient Location: [facility]\S\N283\S\2 HR: 68 * : 1965 (M/d/yyyy) Gender: Female Height: 70 in * Age: 52 yrs Ethnicity: [place] Weight: 214 lb * Ordering Physician: Micki Wagner * Referring Physician: Self, Referred * Performed By: Carlos Loving RCS * * Reason For Study: Chest Pain * BSA: 2.1 m2 * The study was technically adequate. * STRESS STUDY: Normal pharmacologic stress echocardiogram. No echocardiographic or ECG evidence of myocardial ischemia having achieved heart rate adequate for diagnostic purposes. * -- Conclusions -- * STRESS STUDY: * Normal pharmacologic stress echocardiogram. * No echocardiographic or ECG evidence of myocardial ischemia having achieved heart rate adequate for diagnostic purposes. * RESTING STUDY: * No significant valvular heart disease. * Grade I diastolc dysfunction is present. Procedure Details * DOBUTAMINE ECHO, CPT#[id number] * ECHO COLOR FLOW, CPT #[id number] * ECHO DOPPLER, CPT #[id number] Left Ventricle * The left ventricle is normal in size. * There is normal left ventricular wall thickness. * Ejection Fraction = 60-65%. * Left ventricular systolic function is normal. * The left ventricular wall motion is normal at rest. * The left ventricular ejection fraction increases normally with stress. The left ventricular end-systolic cavity size reduces post-stress (normal response). The left ventricular wall motion with stress is normal. Right Ventricle * The right ventricle is normal in size and function. Atria * The left atrial size is normal. * Right atrial size is normal. * No ASD detected; PFO is not assessed. Mitral Valve * The mitral valve is normal. * There is no mitral valve stenosis. * Significant mitral regurgitation is absent. Tricuspid Valve * The tricuspid valve is normal. * There is no tricuspid stenosis. * Significant tricuspid regurgitation is absent. Aortic Valve * The aortic valve is trileaflet. * Aortic stenosis is absent. * There is no significant aortic regurgitation. Pulmonic Valve * The pulmonary valve is not well seen, but the Doppler examination is normal without significant regurgitation or stenosis. Great Vessels * The aortic root and proximal ascending aorta are normal sized. Pericardium * There is no pericardial effusion. Stress Parameters * The baseline ECG displays normal sinus rhythm. * The stress ECG response was normal * No arrhythmia were noted with stress. * The stress portion of this study was personally supervised by the undersigned interpreting physician. * Rest heart rate was '68' BPM. * Rest blood pressure was '111/59' * Maximum heart rate achieved was 187 bpm. * Maximum heart rate was 110 % of maximum age-predicted heart rate. * Maximum blood pressure was '114/33' * Maximum Dobutamine infusion rate was '30' mcg/kg/min. * A total of .5 mg of intravenous Atropine was used to supplement Dobutamine for heart rate response. * Dobutamine infusion was terminated due to achieving target heart rate * A total of 7.5 mg of IV Metoprolol was administered to reverse Dobutamine-induced tachycardia. * The patient did not exhibit any symptoms during drug infusion. Left Ventricular Diastolic Function * Grade I diastolic dysfunction, (abnormal relaxation pattern). MMode 2D Measurements and Calculations IVSd 1.0 cm IVSs 1.3 cm LVIDd 4.6 cm LVIDs 3.1 cm LVPWd 1.0 cm LVPWs 1.4 cm IVS/LVPW 1.0 FS 32.3 % EDV(Teich) 95.7 ml ESV(Teich) 37.7 ml EF(Teich) 60.6 % EDV(cubed) 95.2 ml ESV(cubed) 29.6 ml EF(cubed) 68.9 % % IVS thick 26.5 % % LVPW thick 33.9 % LV mass(C)d 160.5 grams LV mass(C)dI 74.7 grams/m\S\2 LV mass(C)s 133.3 grams LV mass(C)sI 62.1 grams/m\S\2 CO(Teich) 3.5 l/min CI(Teich) 1.6 l/min/m\S\2 SV(Teich) 58.0 ml SI(Teich) 27.0 ml/m\S\2 CO(cubed) 4.0 l/min CI(cubed) 1.9 l/min/m\S\2 SV(cubed) 65.6 ml SI(cubed) 30.6 ml/m\S\2 Ao root diam 3.6 cm Ao root area 10.4 cm\S\2 ACS 1.8 cm LA dimension 3.3 cm asc Aorta Diam 3.2 cm LA/Ao 0.92 LVAd ap4 32.5 cm\S\2 LVLd ap4 8.4 cm EDV(MOD-sp4) 105.0 ml LVAs ap4 17.1 cm\S\2 LVLs ap4 6.8 cm ESV(MOD-sp4) 38.0 ml EF(MOD-sp4) 63.8 % LVAd ap2 27.0 cm\S\2 LVLd ap2 7.9 cm EDV(MOD-sp2) 79.0 ml LVAs ap2 13.8 cm\S\2 LVLs ap2 6.3 cm ESV(MOD-sp2) 26.0 ml EF(MOD-sp2) 67.1 % CO(MOD-sp4) 4.1 l/min CI(MOD-sp4) 1.9 l/min/m\S\2 SV(MOD-sp4) 67.0 ml SI(MOD-sp4) 31.2 ml/m\S\2 CO(MOD-sp2) 3.2 l/min CI(MOD-sp2) 1.5 l/min/m\S\2 SV(MOD-sp2) 53.0 ml SI(MOD-sp2) 24.7 ml/m\S\2 Doppler Measurements and Calculations MV E max darren 79.4 cm/sec MV A max darren 89.5 cm/sec MV E/A 0.89 MV P1/2t max darren 90.7 cm/sec MV P1/2t 55.1 msec MVA(P1/2t) 4.0 cm\S\2 MV dec slope 482.3 cm/sec\S\2 MV dec time 0.23 sec Ao V2 max 143.3 cm/sec Ao max PG 8.2 mmHg Ao max PG (full) 3.0 mmHg LV V1 max PG 5.2 mmHg LV V1 max 114.1 cm/sec PA V2 max 128.7 cm/sec PA max PG 6.7 mmHg PI max darren 189.4 cm/sec PI max PG 14.4 mmHg PI dec slope 197.9 cm/sec\S\2 PI P1/2t 280.4 msec
[2017-06-16] MEDS ORDERED: ULT50X PO (15:51)
[2017-06-16] MEDS ORDERED: TRAZ50TA35 PO (15:51)
--- NOTE | 2017-06-16 15:56 | Discharge Instructions ---
Discharge Instructions Date of Service Jun 16, 2017. Admission Reason for Admission: Chest Pain Discharge Discharge Diagnosis / Problem: Chest pain Discharge Goals Goal(s): Prevent Disease Progression Activity Recommendations Activity Limitations: per Instructions/Follow-up section . Instructions / Follow-Up Instructions / Follow-Up Please take all medications as instructed. You have been scheduled with Dr. Dotson for Thursday, 06/19 @ 10:45am for follow- up from this hospitalization. Please bring all paperwork from discharge with you and arrive early. It was a pleasure taking care of you! Call if you have any questions or problems. You can reach a [facility] hospitalist on duty at [facility] 24 hours a day by calling [phone]. Take care of yourself. Katarzyna Hare DO [facility] Hospitalist Current Hospital Diet Patient's current hospital diet: AHA Diet (Heart Healthy) Discharge Diet Recommended Diet: AHA Diet (Heart Healthy) Procedures Procedures Performed: DSE: STRESS STUDY: Normal pharmacologic stress echocardiogram. No echocardiographic or ECG evidence of myocardial ischemia having achieved heart rate adequate for diagnostic purposes. -- Conclusions -- STRESS STUDY: Normal pharmacologic stress echocardiogram. No echocardiographic or ECG evidence of myocardial ischemia having achieved heart rate adequate for diagnostic purposes. RESTING STUDY: No significant valvular heart disease. Grade I diastolc dysfunction is present. Pending Studies Studies pending at discharge: no Laboratory Results Lipid Panel Test 06/16/17 05:40 Range/Units Triglycerides Level 238 H 0-150 mg/dl Cholesterol Level 211 H 0-200 mg/dl HDL Cholesterol 39 mg/dl Cholesterol/HDL Ratio 5.4 LDL Cholesterol, Calculated 124 mg/dl Medical Emergencies . Who to Call and When: Medical Emergencies: If at any time you feel your situation is an emergency, please call 911 immediately. . Non-Emergent Contact Non-Emergency issues call your: Primary Care Provider . . "Provider Documentation" section prepared by Katarzyna Hare. . VTE Core Measure Inpt VTE Proph given/why not?: Enoxaparin (Lovenox)SQ
--- NOTE | 2017-06-16 16:02 | Discharge Summary ---
Discharge Summary Date of Service Jun 16, 2017. Discharge Summary Admission Date: Jun 15, 2017 at 15:40 Discharge Date: Jun 16, 2017 Discharge Disposition: Home Principal Diagnosis: Chest pain Bipolar disorder Chronic back pain h/o Fibula fracture s/p ORIF Chronic migraines Procedures: DSE: * STRESS STUDY: Normal pharmacologic stress echocardiogram. No echocardiographic or ECG evidence of myocardial ischemia having achieved heart rate adequate for diagnostic purposes. * -- Conclusions -- * STRESS STUDY: * Normal pharmacologic stress echocardiogram. * No echocardiographic or ECG evidence of myocardial ischemia having achieved heart rate adequate for diagnostic purposes. * RESTING STUDY: * No significant valvular heart disease. * Grade I diastolc dysfunction is present. Vaccinations: None. Consultations: GI Pending Studies/Follow-Up: see instructions below Medication Reconciliation New Medications: Tramadol HCl (Tramadol HCl) 50 Mg Tab 50 MG PO Q6H PRN for Pain for 10 Days, #20 TAB Continued Medications: Aripiprazole (Abilify) 10 Mg Tab 10 MG PO DAILY, TAB Atorvastatin (Lipitor) 10 Mg Tab 10 MG PO DAILY, TAB Baclofen (Lioresal) 10 Mg Tab 10 MG PO TID, TAB Bupropion Hcl (Wellbutrin Sr) 150 Mg Tabcr 150 MG PO DAILY, TAB Dicyclomine Hcl (Bentyl) 10 Mg Cap 10 MG PO TID PRN for abdominal pain, CAP Divalproex Sodium (Depakote) 500 Mg Tab 500 MG PO BID, TAB Gabapentin (Gabapentin) 600 Mg Tab 600 MG PO QID Meloxicam (Meloxicam) 15 Mg Tab 15 MG PO DAILY Oxybutynin Chloride (Ditropan) 5 Mg Tab 5 MG PO DAILY, TAB Sertraline Hcl (Zoloft) 100 Mg Tab 200 MG PO DAILY, TAB Trazodone Hcl (Trazodone) 50 Mg Tab 100 MG PO HS for 30 Days, #30 TAB (This prescription has been renewed) Admission Information HPI (per Admitting provider): 52 year old female who presents to the ER with chest pain. Patient reports she was feeling poorly over the weekend with nausea, fatigue, and episodes of diaphoresis. She reports yesterday she had a few episodes of chest / epigastric pain. She denies any specific causative factors and symptoms would resolve on their own. She reports she had a restless night of sleep last night with discomfort. This morning when she woke up the discomfort was more persistent. She describes it as a burning and squeezing sensation with radiation to the back. She rates the pain #8/10 at its worst. Pain is located in the epigastric area / lower mid chest with mild radiation into the left side of the chest. She denies any associated jaw, neck, shoulder, or arm pain. She received two SL nitro in the ED without any improvement in the pain and then received IV Morphine with some relief. She reports feeling occasional palpitations. No shortness of breath. She denies lightheadedness, dizziness, or syncopal events. No vomiting or diarrhea. She denies fever and chills. No urinary symptoms. In the ER, initial troponin is negative, EKG does not show any acute ST changes. Vitals are stable. Physical Exam (per Admitting): General Appearance: no apparent distress Head: normocephalic Eyes: normal inspection ENT: hearing grossly normal Neck: supple, no JVD Respiratory/Chest: chest non-tender, lungs clear, normal breath sounds, no respiratory distress Cardiovascular: regular rate, rhythm, no edema, normal peripheral pulses Abdomen/GI: normal bowel sounds, non tender, soft Extremities/Musculoskelatal: normal inspection, no calf tenderness Neurologic/Psych: no motor/sensory deficits, alert, normal mood/affect, oriented x 3 Skin: normal color, warm/dry Hospital Course 52 yo female with chest pain admitted to telemetry overnight. Risk factors for ACS included tobacco use and high cholesterol. In the ER initial cardiac enzymes were negative and EKG was non-ischemic. She did not feel any relief with nitro SL or GI cocktail given, but her pain did improve with morphine. A CTA was ordered to rule out dissection and was negative for dissection or pulmonary embolus. Her lungs were clear on imgaging. Cardiac enzymes were trended overnight and were negative. The following day she underwent a dobutamine stress echo which revealed no evidence of inducible myocardial ischemia. Resting study revealed Grade I diastolic dysfunction with no significant valvular disease. Afterwards, she was evaluated and was noted to be asymptomatic and feeling improved since the day prior. Physical exam was unremarkable. She was ambulating and mentating at baseline and was discharged home in stable condition. Total time spent on discharge = 60 minutes This includes examination of the patient, discharge planning, medication reconciliation, and communication with other providers. Discharge Instructions [facility] [address] [place] [address] Discharge Medical Patient Name: Margo Kulkarni Unit Number: [id number] Date of : 1965 Patient Status: Admitted Inpatient (obs) Attending Doctor: Katarzyna Hare DO DI: Medical v4 Discharge Instructions Date of Service Jun 16, 2017. Admission Reason for Admission: Chest Pain Discharge Discharge Diagnosis / Problem: Chest pain Discharge Goals Goal(s): Prevent Disease Progression Activity Recommendations Activity Limitations: per Instructions/Follow-up section . Instructions / Follow-Up Instructions / Follow-Up Please take all medications as instructed. You have been scheduled with Dr. Dotson for Thursday, 06/19 @ 10:45am for follow- up from this hospitalization. Please bring all paperwork from discharge with you and arrive early. It was a pleasure taking care of you! Call if you have any questions or problems. You can reach a [facility] hospitalist on duty at [facility] 24 hours a day by calling [phone]. Take care of yourself. Katarzyna Hare DO [facility] Hospitalist Current Hospital Diet Patient's current hospital diet: AHA Diet (Heart Healthy) Discharge Diet Recommended Diet: AHA Diet (Heart Healthy) Procedures Procedures Performed: DSE: STRESS STUDY: Normal pharmacologic stress echocardiogram. No echocardiographic or ECG evidence of myocardial ischemia having achieved heart rate adequate for diagnostic purposes. -- Conclusions -- STRESS STUDY: Normal pharmacologic stress echocardiogram. No echocardiographic or ECG evidence of myocardial ischemia having achieved heart rate adequate for diagnostic purposes. RESTING STUDY: No significant valvular heart disease. Grade I diastolc dysfunction is present. Pending Studies Studies pending at discharge: no Laboratory Results Lipid Panel Test 06/16/17 05:40 Range/Units Triglycerides Level 238 H 0-150 mg/dl Cholesterol Level 211 H 0-200 mg/dl HDL Cholesterol 39 mg/dl Cholesterol/HDL Ratio 5.4 LDL Cholesterol, Calculated 124 mg/dl Medical Emergencies . Who to Call and When: Medical Emergencies: If at any time you feel your situation is an emergency, please call 911 immediately. . Non-Emergent Contact Non-Emergency issues call your: Primary Care Provider . . "Provider Documentation" section prepared by Katarzyna Hare. . VTE Core Measure Inpt VTE Proph given/why not?: Enoxaparin (Lovenox)SQ Additional Copies To Victorina Dotson D.O.
[2017-08-07] MEDS ORDERED: CLN150 PO (08:26)
== END 2017-06-16 16:46 | disposition home or self-care (01) ==
LOC: C.EDB 12:03 → C.MED 15:40 → ENRESERV 16:40 → C.MED 20:20
PROVIDERS: ADMIT Internal Medicine; ATTEND Hospitalist
DX: R07.9 Chest pain, unspecified (principal); G89.29 Other chronic pain; M54.9 Dorsalgia, unspecified; F31.9 Bipolar disorder, unspecified; F17.210 Nicotine dependence, cigarettes, uncomplicated; G43.909 Migraine, unspecified, not intractable, without status migrainosus; Z79.899 Other long term (current) drug therapy; Z87.81 Personal history of (healed) traumatic fracture

== ENCOUNTER → 2017-12-31 | Day surgery (SDC) | payer OTHER ==
[2017-12-10 12:54] VITALS: Ht 177.8 cm; Wt 97.7 kg
[2017-12-14 17:14] LABS: BASO % 0.6 %; BASO ABS # 0.05 K/uL (0-0.2); EOS % 5.2 %; EOS ABS # 0.41 K/uL (0-0.5); HEMATOCRIT 44.3 % (37-47); HEMOGLOBIN 14.6 g/dL (12.0-16.0); IG# 0.02 K/uL (0.00-0.02); LYMPH % 43.8 %; LYMPH ABS # 3.44 K/uL (1.2-3.4); MEAN CELL VOLUME 92.7 fL (80-100); MEAN CORPUSCULAR HEMOGLOBIN 30.5 pg (25-34); MEAN PLATELET VOLUME 9.7 fL (7.4-10.4); MONO % 5.6 %; MONO ABS # 0.44 K/uL (0.11-0.59); NEUT % 44.5 %; PLATELET COUNT 265 K/uL (130-400); RED CELL DISTRIBUTION WIDTH CV 13.3 % (11.5-14.5); RED CELL DISTRIBUTION WIDTH SD 44.9 fL (36.4-46.3); WHITE BLOOD COUNT 7.86 K/uL (4.8-10.8)
[2017-12-14 17:45] LABS: CALCIUM 9.8 mg/dl (8.5-10.1); CREATININE 0.88 mg/dl (0.60-1.20); POTASSIUM 4.4 mmol/L (3.5-5.1)
[~2017-12-31] VITALS: Ht 177.8 cm; Wt 97.7 kg
[~2017-12-31] MED LIST changes: -ABL10 PO; +ATOR10TA82 PO; +ATROPINE SULFATE 0.1 MG/ML 5ML SYR IV PRN; +BACL10TA PO; -BUPR-83 PO; +BUPRTAB51 PO; +CEFAZOLIN 2000MG IV PUSH 15 ML IV SCH; +CIPR-255 PO; +CLN150 PO; +DEXAMETHASONE SOD INJ 4 MG/ML VIAL ONE; -DICL1GEL12 TOP; +DICY10CA55 PO; -DIVA500T59 PO; +DSY/150 PO; +DTR/5 PO; +EpHEDrine SULFATE INJ 50 MG/ML AMP IV PRN; +EpINEphrine INJ 1MG/ML AMP 1 MG/ML AMP ONE; +FENTANYL CITRATE INJ 50 MCG/1 ML 2 ML VIAL ONE; -HYDR-5688 PO; -IBUP-1451 PO; +KETO10TA PO; +KETOROLAC TROMETHAMINE 30 MG/ML VIAL IV. PRN; +KETOROLAC TROMETHAMINE 30 MG/ML VIAL ONE; +LACTATED RINGER'S 1000ML 1,000 ML IV SCH; +LIDOCAINE HCL 1% 20 ML VIAL ONE; +LIDOCAINE HCL 2% 2 ML VIAL (20MG/ML) ONE; +MIDAZOLAM HCL 1 MG/ML 2ML VIAL ONE; +MULT-506 PO; +NRN/600 PO; -NRN600 PO; +ONDA4TAB65 PO; +ONDANSETRON INJ 2 MG/ML 2 ML VIAL IV PRN; +ONDANSETRON INJ 2 MG/ML 2 ML VIAL ONE; +OXYC-57 PO; +OXYCODONE/ACETAMINOPHEN 5-325 TAB ONE; +OXYCODONE/ACETAMINOPHEN 5-325 TAB PO PRN; +PROPOFOL IV EMULSION 10 MG/ML 20 ML VIAL IV ONE; +ROPIVACAINE 0.5% 5 MG/ML 30 ML VIAL ONE; +SERT100T PO; -SERT1TAB68 PO; +SODIUM CHLORIDE 0.9% 1000ML 1,000 ML IV SCH; +TRAZ100T29 PO; -TRAZ50TA35 PO
--- NOTE | 2017-12-31 06:37 | History & Physical Bridge - SC ---
H&P Re-Evaluation Bridge Note: I have examined the patient, reviewed the History & Physical and in the interval since the performance of the History & Physical I have noted the following changes of clinical significance: No changes noted
--- NOTE | 2017-12-31 08:04 | [facility] Post Operative Brief Note ---
Immediate Operative Summary Operative Date Dec 31, 2017. Pre-Operative Diagnosis Right Knee Traumatic Arthropathy, Pain Post-Operative Diagnosis same as pre op Procedure(s) Performed Right Knee Arthroscopy With Removal Of Hardware And Lateral Meniscectomy, Chondroplasty Surgeon Dr Robertson Plug Sorter Surgeon(s) Jose Raul Zamora Estimated Blood Loss 10ml Findings Consistent with Post-Op Diagnosis Specimens none Anesthesia Type General Complication(s) none Disposition Disposition: Recovery Room / PACU
--- NOTE | 2017-12-31 08:36 | Discharge Instructions-SurgCtr ---
Discharge Instructions Date of Service Dec 31, 2017. Visit Reason for Visit: Right Knee Traumatic Arthropathy, Pain Discharge Discharge Diagnosis / Problem: SAME ABOVE Discharge Goals Goal(s): Decrease discomfort, Improve function Activity Recommendations Activity Limitations: as noted below Lifting Limitations: until after follow-up appointment Exercise/Sports Limitations: until after follow-up appointment Shower/Bathe: may shower/bathe in 3 days Anesthesia . Post Anesthesia Instructions: If you have had General Anesthesia or IV Sedation: * Do not drive today. * Resume driving when surgeon permits. * Do not make important decisions or sign legal documents today. * Call surgeon for: 1. Temperature elevations greater than 101 degrees F. 2. Uncontrollable pain. 3. Excessive bleeding. 4. Persistent nausea and vomiting. 5. Medication intolerance (nausea, vomiting or rash). * For nausea and vomiting use only clear liquids such as: tea, soda, bouillon until nausea subsides, then gradually increase diet as tolerated. * If you have any concerns or questions, call your surgeon's office. If physician is unavailable and it is an emergency, call 911 or go to the nearest emergency room. . Instructions / Follow-Up Instructions / Follow-Up MEDICATIONS: * Resume previous medications unless instructed otherwise by your surgeon. * Always take pain medication on a full stomach or with food to avoid upset stomach. * Do not drink alcohol or drive while taking narcotics. * Ibuprofen or Tylenol may be taken if narcotic not needed. SPECIAL CARE INSTRUCTIONS: __ None _X_ Keep extremity elevated and iced x 48 hours; apply ice 20-30 minutes 8-10 times/day. May remove at night. _X_ Crutches __ May discard when able __ Brace/Post-op shoe __ 24 hrs/day __ Remove at night _X_ Dressing __ Maintain until seen in office, may shower with plastic over site _X_ Remove dressings in 48 hours and then may shower _X_ Cover incisions with band-aids after showering __ Do not remove steri-strips Call physician if chills or temperature rises above 102 degrees or pain unrelieved by prescribed pain medications. Office [phone] 50% WEIGHT BEARING ON THE RIGHT LEG TAKE ASA 325MG 1 TAB DAILY UNTIL SEEN FOR FOLLOW-UP (6 WEEKS) Diet Recommendations Home Diet: no limitations Fluid Restriction: None Procedures Procedures Performed: Right Knee Arthroscopy With Removal Of Hardware And Lateral Meniscectomy, Chondroplasty Pending Studies Studies pending at discharge: no Medical Emergencies . Who to Call and When: Medical Emergencies: If at any time you feel your situation is an emergency, please call 911 immediately. . Non-Emergent Contact Non-Emergency issues call your: Primary Care Provider, Hospital Doctor Call Non-Emergent contact if: you have a fever, temperature is above 101.5 . . "Provider Documentation" section prepared by Roger Zamora. .
[2017-12-31] MEDS: FENTANYL CITRATE INJ 50 MCG/1 ML 2 ML VIAL IV PRN ×4 (08:40→09:12)
[2017-12-31 09:27] VITALS: TEMP 36.7
[2017-12-31 09:50] VITALS: BP 131/85; PULSE 89; O2SAT 99
--- NOTE | 2017-12-31 09:56 | Anesthesia Progress Nt - [facility] ---
Anesthesia Post Op Note Date & Time Dec 31, 2017 at 09:56 Vital Signs Vital Signs Past 12 Hours Date Time Temp Pulse Resp B/P (MAP) Pulse Ox O2 Delivery O2 Flow Rate FiO2 12/31/17 09:27 36.7 88 18 133/85 (101) 94 Room Air 12/31/17 09:21 127/83 12/31/17 09:20 76 22 12/31/17 09:20 76 22 93 12/31/17 09:19 37.2 79 16 122/82 94 Room Air 12/31/17 09:19 79 20 12/31/17 09:19 78 20 95 12/31/17 09:16 122/82 12/31/17 09:14 86 19 98 12/31/17 09:14 84 19 12/31/17 09:11 137/81 12/31/17 09:09 83 19 12/31/17 09:09 84 19 97 12/31/17 09:06 128/92 12/31/17 09:04 87 15 99 12/31/17 09:04 86 15 12/31/17 09:01 137/97 12/31/17 08:59 88 19 12/31/17 08:59 88 19 97 12/31/17 08:58 79 22 99 12/31/17 08:58 77 22 12/31/17 08:56 141/94 12/31/17 08:53 85 21 12/31/17 08:53 83 21 100 12/31/17 08:51 138/99 12/31/17 08:48 84 22 12/31/17 08:48 86 22 100 12/31/17 08:46 142/91 12/31/17 08:43 91 20 12/31/17 08:43 91 20 100 12/31/17 08:41 146/94 12/31/17 08:38 84 18 12/31/17 08:38 81 18 100 12/31/17 08:36 149/97 12/31/17 08:33 95 12/31/17 08:33 36.5 92 18 141/81 99 Diffusion Mask 6 12/31/17 08:33 95 141/81 98 12/31/17 06:36 36.9 80 16 112/77 (89) 95 Room Air Notes Mental Status: alert / awake / arousable, participated in evaluation Pt Amnestic to Procedure: Yes Nausea / Vomiting: adequately controlled Pain: adequately controlled Airway Patency, RR, SpO2: stable & adequate BP & HR: stable & adequate Hydration State: stable & adequate Anesthetic Complications: no major complications apparent
--- NOTE | 2017-12-31 11:30 | OPERATIVE REPORT ---
DATE OF OPERATION: 12/31/2017 PREOPERATIVE DIAGNOSIS: Posttraumatic meniscal tear of the right knee with a painful retained hardware. POSTOPERATIVE DIAGNOSIS: Same. PROCEDURE: Right knee diagnostic arthroscopy with chondroplasty, partial lateral meniscectomy and removal of hardware. SURGEON: Dr. Enzo Robertson. [employer] MAINTENANCE TECHNICIAN: Jose Raul Zamora PA-C, whose assistance was necessary for positioning of the knee and helping with instrumentation. ANESTHESIA: General. COMPLICATIONS: None. CONDITION: Stable to PACU. INDICATIONS: Margo is a pleasant 52-year-old female who fractured her right tibial plateau 2 years ago. She had it fixed in [place]. She had medial and lateral plating. Unfortunately, over the past 2 years, she has been having a lot of knee pain. Most of it has been a lateral-sided pain, but she was also having a lot of pain over the hardware. After failing conservative treatment, she elected to undergo arthroscopy. DESCRIPTION OF PROCEDURE: On 12/31/2017, she arrived at [facility] for the above procedure. She was seen in the preoperative holding area and the operative extremity was identified and signed. She was given a preoperative antibiotic and taken back to the operating room, laid on the table in supine position and put under general anesthesia. The right knee was then prepped and draped in the sterile fashion. Time-out was done and the patient's operative extremity was properly identified. The arthroscopy portion was done first. A scope was placed in the lateral parapatellar portal. Diagnostic arthroscopy showed no loose bodies in the suprapatellar pouch. There was minimal arthritis in the patellofemoral joint. The scope was brought into the medial compartment. A medial parapatellar portal was made under direct visualization. There was no tearing of the medial meniscus. There was some grade 2 chondral changes off the distal medial femoral condyle. A shaver was used to do a chondroplasty off the distal medial femoral condyle. The scope was then brought into the trochlea. ACL and PCL were intact. The scope was then brought into the lateral compartment. There was significant tearing and incarceration of the lateral meniscus. Time was spent with a shaver and ablator used to take the torn lateral meniscus back to stable margins. The tibial plateau on the lateral side was disrupted. A gentle chondroplasty was done of the distal lateral femoral condyle. I did my best to get the lateral meniscus back to stable margins. The scope was then placed in the medial parapatellar portal. Repeat diagnostic arthroscopy showed no additional pathology. Arthroscopic instruments were removed from the knee and portal sites were closed with 3-0 nylon. Attention was then turned to hardware removal. Incisions were made over the previous incision site both medially and laterally. Dissection was taken down through the fascia and the hardware was exposed. The hardware was removed rather easily. The deep fascial layer was then closed with #1 Vicryl suture and skin was closed with 2-0 Vicryl and marin. She was then placed in a soft compressive dressing, extubated, transferred to a [facility] and taken to the postanesthesia care unit in stable condition. She tolerated the procedure well. I attest to the content of the Intraoperative Record and any orders documented therein. Any exception s are noted below.
== END | disposition home or self-care (01) ==
LOC: X.SURG 06:11
PROVIDERS: ATTEND Orthopaedic Surgery
DX: M23.261 Derangement of other lateral meniscus due to old tear or injury, right knee (principal); T84.196A Other mechanical complication of internal fixation device of bone of right lower leg, initial encounter; Y83.1 Surgical operation with implant of artificial internal device as the cause of abnormal reaction of the patient, or of later complication, without mention of misadventure at the time of the procedure; G47.33 Obstructive sleep apnea (adult) (pediatric); E66.9 Obesity, unspecified; F31.9 Bipolar disorder, unspecified; Z90.49 Acquired absence of other specified parts of digestive tract; Z90.710 Acquired absence of both cervix and uterus; Z82.49 Family history of ischemic heart disease and other diseases of the circulatory system; Z82.3 Family history of stroke; Z80.42 Family history of malignant neoplasm of prostate

== ENCOUNTER 2018-01-02 14:37 | Emergency (ER) | payer OTHER ==
[~2018-01-02] VITALS: Ht 177.8 cm; Wt 84.0 kg
[~2018-01-02 14:37] MED LIST changes: -ATROPINE SULFATE 0.1 MG/ML 5ML SYR IV PRN; -CEFAZOLIN 2000MG IV PUSH 15 ML IV SCH; -DEXAMETHASONE SOD INJ 4 MG/ML VIAL ONE; -DSY/150 PO; -EpHEDrine SULFATE INJ 50 MG/ML AMP IV PRN; -EpINEphrine INJ 1MG/ML AMP 1 MG/ML AMP ONE; -FENTANYL CITRATE INJ 50 MCG/1 ML 2 ML VIAL ONE; -KETOROLAC TROMETHAMINE 30 MG/ML VIAL IV. PRN; -KETOROLAC TROMETHAMINE 30 MG/ML VIAL ONE; -LACTATED RINGER'S 1000ML 1,000 ML IV SCH; -LIDOCAINE HCL 1% 20 ML VIAL ONE; -LIDOCAINE HCL 2% 2 ML VIAL (20MG/ML) ONE; -MIDAZOLAM HCL 1 MG/ML 2ML VIAL ONE; -ONDANSETRON INJ 2 MG/ML 2 ML VIAL IV PRN; -ONDANSETRON INJ 2 MG/ML 2 ML VIAL ONE; -OXYCODONE/ACETAMINOPHEN 5-325 TAB ONE; -OXYCODONE/ACETAMINOPHEN 5-325 TAB PO PRN; -PROPOFOL IV EMULSION 10 MG/ML 20 ML VIAL IV ONE; -ROPIVACAINE 0.5% 5 MG/ML 30 ML VIAL ONE; -SODIUM CHLORIDE 0.9% 1000ML 1,000 ML IV SCH
[2018-01-02 14:41] VITALS: TEMP 36.6; Ht 177.8 cm; Wt 84.0 kg
--- NOTE | 2018-01-02 15:54 | EMERGENCY ROOM VISIT NOTE ---
History Report prepared by Christy: Manoj Ramírez Under the Supervision of: Dr. Bhaskar Garcia M.D. First contact with patient: 15:19 Chief Complaint: CATHETER REPLACEMENT Stated Complaint: PATEL PUT IN LASTNIGHT IS BLEEDING History of Present Illness The patient is a 52 year old white female with a past medical history of splenic artery aneurysm, migraines, bladder repair surgery, urinary retention who presents to the ED with a cc of persistent urinary retention beginning yesterday after a right knee arthroscopic surgery that occurred 2 days ago. Positive blood in urine, mild abdominal cramping. She states that she was seen here yesterday as well for the urinary retention. The patient notes that she has not noticed any recent tugs on her catheter. The patient says that she was started on Cipro, and was also started on Aspirin after the procedure. She does smoke cigarettes. Source of History: patient Onset: Yesterday Position: other (global) Symptom Intensity: after arthroscopic knee surgery Quality: other (urinary retention) Timing: other (persistent) Associated Symptoms: + abdominal pain (mild cramping), + urinary symptoms ( blood in urine) Note: No other associated symptoms noted. Review of Systems See HPI for pertinent positives and negatives. A total of ten systems were reviewed and were otherwise negative. Past Medical & Surgical Medical Problems: (1) Bipolar disorder (2) Chronic back pain (3) Fibula fracture (4) Migraines Surgical Problems: (1) H/O arthroscopic knee surgery (2) History of partial hysterectomy (3) Hx of bladder repair surgery (4) Hx of cholecystectomy Family History FH: CAD (coronary artery disease) GRANDFATHER ([place] GRANDMOTHER [place] FH: Parkinson's disease MOTHER Social History Smoking Status: Current Every Day Smoker Alcohol Use: none Drug Use: none Housing Status: lives with family Current/Historical Medications Scheduled Atorvastatin (Lipitor), 10 MG PO QAM Baclofen (Lioresal), 10 MG PO BID Bupropion (Wellbutrin-Xl), 300 MG PO QAM Ciprofloxacin Hcl (Cipro), 1 TAB PO BID Gabapentin (Neurontin), 600 MG PO QID Multivitamin (Multivitamin), 1 TAB PO HS Oxybutynin Chloride (Ditropan), 5 MG PO QAM Sertraline Hcl (Zoloft), 200 MG PO QAM Sulindac (Sulindac), 150 MG PO BID Trazodone HCl (Trazodone HCl), 150 MG PO HS Scheduled PRN Dicyclomine Hcl (Bentyl), 10 MG PO TID PRN for Abdominal Pain Ketorolac Tromethamine (Toradol), 10 MG PO Q8 PRN for Pain Ondansetron Hcl (Zofran), 1 TAB PO Q6H PRN for Nausea Oxycodone/Acetaminophen 5MG/325MG (Percocet 5MG/325MG), 1-2 TABLETS PO Q6 PRN for Pain Allergies Coded Allergies: Latex (Verified Allergy, Unknown, anaphalaxis, 12/31/17) NO KNOWN DRUG ALLERGIES (Verified Allergy, Unknown, ., 12/31/17) Physical Exam Vital Signs Date Time Temp Pulse Resp B/P (MAP) Pulse Ox O2 Delivery O2 Flow Rate FiO2 01/02/18 17:03 82 20 99 Room Air 01/02/18 14:41 36.6 80 16 118/50 100 Physical Exam GENERAL: Awake, alert, well-appearing, NAD HENT: Normocephalic, atraumatic. EYES: Normal conjunctiva. Sclera non-icteric. NECK: Supple. No nuchal rigidity. FROM. RESPIRATORY: CTAB, no rhonchi, wheezing, crackles CARDIAC: RRR, no MRG ABDOMEN: Mild suprapubic discomfort. Nonsurgical abdomen. MSK: No chest wall TTP. Surgical incisions stapled over right knee, MVI distally. Compartments are soft. No signs of erythema, fluctuance, or induration. NEURO: GCS 15, CN 2-12 intact, moves all 4s on command SKIN: No rash or jaundice noted. Medical Decision & Procedures Laboratory Results 01/02/18 16:11 Red Blood Count 4.05, Mean Corpuscular Volume 93.1, Mean Corpuscular Hemoglobin 31.1, Mean Corpuscular Hemoglobin Concent 33.4, Mean Platelet Volume 9.4, Neutrophils (%) (Auto) 57.3, Lymphocytes (%) (Auto) 30.9, Monocytes (%) (Auto) 6.3, Eosinophils (%) (Auto) 4.7, Basophils (%) (Auto) 0.6, Neutrophils # (Auto) 4.77, Lymphocytes # (Auto) 2.57, Monocytes # (Auto) 0.52, Eosinophils # (Auto) 0.39, Basophils # (Auto) 0.05 01/02/18 16:11 Test 01/02/18 16:11 01/02/18 16:35 White Blood Count 8.32 K/uL (4.8-10.8) Red Blood Count 4.05 M/uL (4.2-5.4) Hemoglobin 12.6 g/dL (12.0-16.0) Hematocrit 37.7 % (37-47) Mean Corpuscular Volume 93.1 fL (80-100) Mean Corpuscular Hemoglobin 31.1 pg (25-34) Mean Corpuscular Hemoglobin Concent 33.4 g/dl (32-36) Platelet Count 227 K/uL (130-400) Mean Platelet Volume 9.4 fL (7.4-10.4) Neutrophils (%) (Auto) 57.3 % Lymphocytes (%) (Auto) 30.9 % Monocytes (%) (Auto) 6.3 % Eosinophils (%) (Auto) 4.7 % Basophils (%) (Auto) 0.6 % Neutrophils # (Auto) 4.77 K/uL (1.4-6.5) Lymphocytes # (Auto) 2.57 K/uL (1.2-3.4) Monocytes # (Auto) 0.52 K/uL (0.11-0.59) Eosinophils # (Auto) 0.39 K/uL (0-0.5) Basophils # (Auto) 0.05 K/uL (0-0.2) RDW Standard Deviation 46.4 fL (36.4-46.3) RDW Coefficient of Variation 13.7 % (11.5-14.5) Immature Granulocyte % (Auto) 0.2 % Immature Granulocyte # (Auto) 0.02 K/uL (0.00-0.02) Prothrombin Time 9.7 SECONDS (9.0-12.0) Prothromb Time International Ratio 0.9 (0.9-1.1) Activated Partial Thromboplast Time 25.2 SECONDS (21.0-31.0) Partial Thromboplastin Ratio 1.0 Anion Gap 3.0 mmol/L (3-11) Est Creatinine Clear Calc Drug Dose 94.5 ml/min Estimated GFR () 93.9 Estimated GFR (Non- 81.0 BUN/Creatinine Ratio 20.8 (10-20) Calcium Level 9.2 mg/dl (8.5-10.1) Urine Color DK YELLOW Urine Appearance CLOUDY (CLEAR) Urine pH 5.0 (4.5-7.5) Urine Specific [place] 1.033 (1.000-1.030) Urine Protein TRACE (NEG) Urine Glucose (UA) NEG (NEG) Urine Ketones NEG (NEG) Urine Occult Blood 3+ (NEG) Urine Nitrite NEG (NEG) Urine Bilirubin NEG (NEG) Urine Urobilinogen NEG (NEG) Urine Leukocyte Esterase TRACE (NEG) Urine WBC (Auto) 5-10 /hpf (0-5) Urine RBC (Auto) >30 /hpf (0-4) Urine Hyaline Casts (Auto) 1-5 /lpf (0-5) Urine Epithelial Cells (Auto) >30 /lpf (0-5) Urine Bacteria (Auto) NEG (NEG) Urine Renal Epithelial Cells /lpf (0-5) Urine Test NEG (NEG) Laboratory results reviewed by [facility] ED Course 1547: The patient was evaluated in room B7. A complete history and physical exam was performed. 1718: I reevaluated the patient and she is resting comfortably. Discussed results and discharge instructions: she verbalized understanding and agreement. The patient is ready for discharge. Medical Decision The patient is a 52 year old white female with a past medical history of splenic artery aneurysm, migraines, bladder repair surgery, urinary retention who presents to the ED with a cc of persistent urinary retention beginning yesterday after a right knee arthroscopic surgery that occurred 2 days ago. Positive blood in urine, mild abdominal cramping. Differential diagnosis: Etiologies such as appendicitis, diverticulitis, PUD, biliary pathology, UTI, pancreatitis, obstruction, mesenteric ischemia, aortic pathology, infections, inflammatory bowel disease, renal colic, as well as others were entertained. Patient was seen and evaluated the bedside. Patient was recently seen yesterday for some urinary retention status post a recent arthroscopic knee surgery where she had explantation of hardware from a tibial plateau fracture. Patient did notice that she had a little bit of blood in the urine. Patient does admit to taking aspirin post procedure. Patient denies any tugging or pulling at the catheter. Patient does have a little bit of blood-tinged urine. This was sent off for urinalysis. The patient did have blood work completed well as well. Patient has a normal H&H and platelet count. Patient has normal Coagulation studies. Patient's urine does show some blood however it does not necessarily appear infected. Patient is already on Cipro and patient was told to continue. The patient did have her Patel catheter replaced and her bladder was irrigated. Patient was feeling fine. The patient also does not have any complaints about her recent right knee procedure. The patient was deemed suitable for outpatient follow-up and discharge at this time. Patient was to see her primary care physician on Thursday for further evaluation of the need for the catheter. This likely may be relate related to the aspirin as well as for the placement of the catheter which may cause some of her hematuria. Patient was told to continue her aspirin at this time. Patient was given strict follow- up, discharge, and return precautions. All questions were answered. Patient was deemed suitable for outpatient follow-up at this time. Patient agreed with the plan of care and was safely discharged home. Medication Reconcilliation Current Medication List: was personally reviewed by me Blood Pressure Screening Patient's blood pressure: Normal blood pressure Impression Primary Impression: Complication of catheter Additional Impression: Hematuria Scribe Attestation The scribe's documentation has been prepared under my direction and personally reviewed by me in its entirety. I confirm that the note above accurately reflects all work, treatment, procedures, and medical decision making performed by me. Departure Information Dispostion Home / Self-Care Referrals Victorina Dotson D.O. (PCP) Patient Instructions ED Catheter Care Patel, ED Hematuria, My [facility] Additional Instructions Please return to the emergency department if you have worsening or recurrent symptoms not amenable to at-home treatment. Please call for a follow-up appointment with her primary care physician. Please take your medications as prescribed. If you have other concerns and/or complaints please feel free to also call your primary care physician's office or return the ED for further evaluation, management, and treatment. You may take 600 mg Ibuprofen every 6 hours as needed for pain with food for no more than 2 consecutive days. You may take tylenol 1000 mg every 6 hours as needed for pain. You may take motrin and tylenol separately or at the same time. Take your medications as prescribed. Please follow-up with your primary care physician and discuss the need for your Patel catheter. Please return if he noticed that the catheter bag is no longer feeling with urine. You have been examined and treated today on an emergency basis only. This is not a substitute for, or an effort to provide, complete comprehensive medical care. It is impossible to recognize and treat all injuries or illnesses in a single emergency department visit. It is therefore important that you follow up closely with [facility], your PCP, and/or your specialist(s). Call as soon as possible for an appointment. Thank you for your time and consideration. I look forward to speaking with you again soon. Please don't hesitate to call us if you have any questions. Problem Qualifiers Primary Impression: Complication of catheter Encounter type: initial encounter Qualified Codes: T85.9XXA - Unspecified complication of internal prosthetic device, implant and graft, initial encounter Additional Impression: Hematuria Hematuria type: unspecified type Qualified Codes: R31.9 - Hematuria, unspecified
[2018-01-02] MEDS ORDERED: DSY/150 PO (16:08)
[2018-01-02 16:27] LABS: BASO % 0.6 %; BASO ABS # 0.05 K/uL (0-0.2); EOS % 4.7 %; EOS ABS # 0.39 K/uL (0-0.5); HEMATOCRIT 37.7 % (37-47); HEMOGLOBIN 12.6 g/dL (12.0-16.0); IG# 0.02 K/uL (0.00-0.02); LYMPH % 30.9 %; LYMPH ABS # 2.57 K/uL (1.2-3.4); MEAN CELL VOLUME 93.1 fL (80-100); MEAN CORPUSCULAR HEMOGLOBIN 31.1 pg (25-34); MEAN CORPUSCULAR HGB CONC 33.4 g/dl (32-36); MEAN PLATELET VOLUME 9.4 fL (7.4-10.4); MONO % 6.3 %; MONO ABS # 0.52 K/uL (0.11-0.59); NEUT % 57.3 %; NEUT ABS # 4.77 K/uL (1.4-6.5); PLATELET COUNT 227 K/uL (130-400); RED CELL DISTRIBUTION WIDTH CV 13.7 % (11.5-14.5); RED CELL DISTRIBUTION WIDTH SD 46.4 fL (36.4-46.3); WHITE BLOOD COUNT 8.32 K/uL (4.8-10.8)
[2018-01-02 16:36] LABS: INR 0.9 (0.9-1.1); PTT PATIENT 25.2 SECONDS (21.0-31.0)
[2018-01-02 16:44] LABS: CALCIUM 9.2 mg/dl (8.5-10.1); CREATININE 0.84 mg/dl (0.60-1.20); POTASSIUM 3.9 mmol/L (3.5-5.1)
[2018-01-02 17:50] VITALS: BP 120/57; PULSE 89; O2SAT 99
== END 2018-01-02 17:54 | disposition home or self-care (01) ==
LOC: C.EDB 14:38
DX: T83.89XA Other specified complication of genitourinary prosthetic devices, implants and grafts, initial encounter (principal); R33.9 Retention of urine, unspecified; R31.9 Hematuria, unspecified; M54.9 Dorsalgia, unspecified; F31.9 Bipolar disorder, unspecified; G89.29 Other chronic pain; Z79.1 Long term (current) use of non-steroidal anti-inflammatories (NSAID); F17.210 Nicotine dependence, cigarettes, uncomplicated; Z90.711 Acquired absence of uterus with remaining cervical stump; Z90.49 Acquired absence of other specified parts of digestive tract; Z82.49 Family history of ischemic heart disease and other diseases of the circulatory system; X58.XXXA Exposure to other specified factors, initial encounter; Z91.040 Latex allergy status

== ENCOUNTER → 2018-02-09 | Outpatient (CLI) | payer OTHER ==
[~2018-02-09] MED LIST changes: +DSY/150 PO; -TRAZ100T29 PO
--- NOTE | 2018-02-09 09:50 | DIAGNOSTIC IMAGING REPORT ---
ULTRASOUND KIDNEYS AND BLADDER CLINICAL HISTORY: Status post bladder surgery. COMPARISON STUDY: No priors. TECHNIQUE: Real-time, grayscale, and color flow sonography of the kidneys and bladder is performed. Images are reviewed in the transverse and longitudinal planes. FINDINGS: Kidneys: The kidneys are normal in size and echotexture. The right kidney measures 10.7 x 4.0 x 5.4 cm and the left kidney measures 12.1 x 4.5 x 5.4 cm. There is no hydronephrosis. No shadowing renal calculi are identified. There is no sonographic evidence of contour deforming renal mass lesion. No perinephric fluid is identified. Bladder: The bladder is partially decompressed. Mild bladder wall thickening suggested. Bilateral ureteral jets were seen. IMPRESSION: 1. The kidneys are normal in size and without hydronephrosis. 2. Mild bladder wall thickening is nonspecific and may be chronic. 3. Both ureteral jets were identified. Electronically signed by: Brandon Osman M.D. 02/09/2018 9:49 AM Dictated Date/Time: 02/09/2018 9:47 AM
== END | disposition home or self-care (01) ==
LOC: C.ULTR 09:07
PROVIDERS: ATTEND Urology
DX: Z98.890 Other specified postprocedural states (principal)

== ENCOUNTER 2018-03-02 19:18 | Emergency (ER) | payer OTHER ==
[~2018-03-02] VITALS: Ht 175.3 cm; Wt 101.0 kg
[~2018-03-02 19:18] MED LIST changes: -CIPR-255 PO; -CLN150 PO; -DSY/150 PO; -KETO10TA PO; -ONDA4TAB65 PO
[2018-03-02 19:23] VITALS: TEMP 37; Ht 175.3 cm; Wt 101.0 kg
[2018-03-02] MEDS ORDERED: SODIUM CHLORIDE 0.9% 1000ML 1,000 ML IV STA (19:48)
[2018-03-02 21:07] LABS: HEMATOCRIT 40.8 % (37-47); HEMOGLOBIN 13.6 g/dL (12.0-16.0); MEAN CELL VOLUME 91.7 fL (80-100); MEAN CORPUSCULAR HEMOGLOBIN 30.6 pg (25-34); MEAN CORPUSCULAR HGB CONC 33.3 g/dl (32-36); MEAN PLATELET VOLUME 9.6 fL (7.4-10.4); PLATELET COUNT 261 K/uL (130-400); RED CELL DISTRIBUTION WIDTH CV 13.2 % (11.5-14.5); RED CELL DISTRIBUTION WIDTH SD 44.5 fL (36.4-46.3); WHITE BLOOD COUNT 7.16 K/uL (4.8-10.8)
[2018-03-02 21:28] LABS: ALBUMIN 3.3 gm/dl (3.4-5.0); ALT/SGPT 35 U/L (12-78); AST/SGOT 21 U/L (15-37); BLOOD UREA NITROGEN 13 mg/dl (7-18); CALCIUM 8.8 mg/dl (8.5-10.1); CARBON DIOXIDE 32 mmol/L (21-32); CREATININE 0.75 mg/dl (0.60-1.20); GLUCOSE 130 mg/dl (70-99); SODIUM 140 mmol/L (136-145)
[2018-03-02 21:38] LABS: ALKALINE PHOSPHATASE 153 U/L (45-117)
[2018-03-02] MEDS ORDERED: SULI150T PO (23:10)
[2018-03-02] MEDS ORDERED: TRAZ100T29 PO (23:10)
[2018-03-03] MEDS ORDERED: HYDR50CA2 PO (00:01)
--- NOTE | 2018-03-03 00:09 | EMERGENCY ROOM VISIT NOTE ---
History Report prepared by Christy: Manoj Ramírez Under the Supervision of: Dr. Tyrell Guevara M.D. First contact with patient: 19:31 Chief Complaint: DETOX REQUEST Stated Complaint: DETOX History of Present Illness The patient is a 53 year old female who presents to the Emergency Room with complaints of a worsening need for a detox request this week. She notes that she has been abusing opiates off and on since 1999. The patient was referred here by her therapist for inpatient detox from Dextromethorphan and Percocet. The patient states that she had been sober for 2 years, but in October she relapsed after smoking marijuana. She notes that she had hardware removed in December from her right knee, and got a total of 3 Percocet prescriptions for that. The patient says that her typical daily dosage of Dextromethorphan can range from 16 to 48, 30 mg tablets. She notes that she is taking opiates whenever she can get them, and has taken 12 since Thursday after being prescribed Percocet for a fall last week. The patient says that the last time she used opiates was yesterday, and her last Dextromethorphan use was today around 1200. She states that she used 16 tablets of 30 mg. The patient states that she has been to several rehab facilities. She notes that her withdrawal symptoms include shakiness, body aches, body cramps, diarrhea, and night sweats. She denies any fevers or vomiting. The patient notes that she thinks about hurting herself "all the time but won't do it". She says that her last suicide attempt was in 2014. She denies having any intent or plan to harm herself. She denies any homicidal ideations. Source of History: patient Onset: This week Position: other (global) Symptom Intensity: from Dextromethorphan and Percocet Quality: other (need for detox ) Timing: worsening Associated Symptoms: + diarrhea, No fevers, No vomiting Note: Associated symptoms: Shaking, body aches, body cramps. Night sweats. Review of Systems See HPI for pertinent positives & negatives. A total of 10 systems reviewed and were otherwise negative. Past Medical & Surgical Medical Problems: (1) Bipolar disorder (2) Chronic back pain (3) Fibula fracture (4) Migraines Surgical Problems: (1) H/O arthroscopic knee surgery (2) History of partial hysterectomy (3) Hx of bladder repair surgery (4) Hx of cholecystectomy Family History FH: CAD (coronary artery disease) GRANDFATHER ([place] GRANDMOTHER [place] FH: Parkinson's disease MOTHER Social History Smoking Status: Current Every Day Smoker Alcohol Use: none Drug Use: none Housing Status: lives with family Current/Historical Medications Scheduled Atorvastatin (Lipitor), 10 MG PO QAM Baclofen (Lioresal), 10 MG PO BID Bupropion (Wellbutrin-Xl), 300 MG PO QAM Gabapentin (Neurontin), 600 MG PO QID Multivitamin (Multivitamin), 1 TAB PO HS Oxybutynin Chloride (Ditropan), 5 MG PO QAM Sertraline Hcl (Zoloft), 200 MG PO QAM Sulindac ([place]), 1 TAB PO BID Trazodone Hcl (Trazodone), 150 MG PO HS Scheduled PRN Dicyclomine Hcl (Bentyl), 10 MG PO TID PRN for Abdominal Pain Hydroxyzine Pamoate (Vistaril), 50 MG PO Q8 PRN for Nausea or Vomiting Allergies Coded Allergies: Latex (Verified Allergy, Severe, ANAPHYLAXIS, 03/02/18) Physical Exam Vital Signs Date Time Temp Pulse Resp B/P (MAP) Pulse Ox O2 Delivery O2 Flow Rate FiO2 03/02/18 23:04 65 18 100/59 91 Room Air 03/02/18 21:07 65 03/02/18 19:23 37.0 106 20 128/83 98 Room Air Physical Exam Constitutional: Vital signs reviewed. Anxious. Eyes: Pupils are equal round reactive to light. Conjunctiva are noninjected. ENT: Pharynx is clear without erythema or exudate. Mucous membranes are dry. Neck supple without meningeal signs. Respiratory: Clear to auscultation bilaterally. Breath sounds are equal bilaterally. Cardiovascular: Regular rate and rhythm. No rubs or gallops. GI: Soft, nondistended and nontender. Bowel sounds are present. Musculoskeletal: No peripheral edema. No lower extremity tenderness. Integumentary: No cyanosis. No piloerection. Neurological: The patient is awake and alert. No focal deficits.She is not tremulous. Psychiatric: Slightly anxious. Not tearful or suicidal. Medical Decision & Procedures Laboratory Results 03/02/18 20:39 03/02/18 20:39 Test 03/02/18 19:48 03/02/18 20:39 03/02/18 20:46 03/02/18 23:05 Urine Test NEG (NEG) Red Blood Count 4.45 M/uL (4.2-5.4) Mean Corpuscular Volume 91.7 fL (80-100) Mean Corpuscular Hemoglobin 30.6 pg (25-34) Mean Corpuscular Hemoglobin Concent 33.3 g/dl (32-36) RDW Standard Deviation 44.5 fL (36.4-46.3) RDW Coefficient of Variation 13.2 % (11.5-14.5) Mean Platelet Volume 9.6 fL (7.4-10.4) Anion Gap 1.0 mmol/L (3-11) Est Creatinine Clear Calc Drug Dose 112.3 ml/min Estimated GFR () 107.0 Estimated GFR (Non- 92.3 BUN/Creatinine Ratio 17.3 (10-20) Calcium Level 8.8 mg/dl (8.5-10.1) Magnesium Level 1.8 mg/dl (1.8-2.4) Total Bilirubin 0.2 mg/dl (0.2-1) Direct Bilirubin < 0.1 mg/dl (0-0.2) Aspartate Amino Transf (AST/SGOT) 21 U/L (15-37) Alanine Aminotransferase (ALT/SGPT) 35 U/L (12-78) Alkaline Phosphatase 153 U/L (45-117) Total Protein 6.0 gm/dl (6.4-8.2) Albumin 3.3 gm/dl (3.4-5.0) Thyroid Stimulating Hormone (TSH) 0.964 uIu/ml (0.300-4.500) Salicylates Level 1.9 mg/dl (2.8-20) Acetaminophen Level < 2 ug/ml (10-30) Ethyl Alcohol mg/dL < 3.0 mg/dl (0-3) Urine Color YELLOW Urine Appearance CLEAR (CLEAR) Urine pH 6.5 (4.5-7.5) Urine Specific [place] 1.019 (1.000-1.030) Urine Protein NEG (NEG) Urine Glucose (UA) NEG (NEG) Urine Ketones NEG (NEG) Urine Occult Blood NEG (NEG) Urine Nitrite NEG (NEG) Urine Bilirubin NEG (NEG) Urine Urobilinogen NEG (NEG) Urine Leukocyte Esterase NEG (NEG) Urine Opiates Screen POS (NEG) Urine Methadone, Qualitative NEG (NEG) Urine Barbiturates NEG (NEG) Urine Phencyclidine (PCP) Level NEG (NEG) Ur Amphetamine/Methamphetamine NEG (NEG) MDMA (Ecstasy) Screen POS (NEG) Urine Benzodiazepines Screen NEG (NEG) Urine Cocaine Metabolite NEG (NEG) Urine Marijuana (THC) NEG (NEG) Laboratory results as reviewed by me. Medications Administered Medications (Trade) Dose Ordered Sig/Concha Route Start Time Stop Time Status Last Admin Dose Admin Sodium Chloride 1,000 ml @ 999 mls/hr Q1H1M STAT IV 03/02/18 19:48 03/02/18 20:48 DC 03/02/18 20:49 999 MLS/HR ECG Per My Interpretation Indication: other (Drug use) Rate (beats per minute): 78 Rhythm: normal sinus Findings: other (No QT prolongation. There is no evidence of widening of the QRS. No ST elevations.) ED Course 1939: The patient was evaluated in room A5. A complete history and physical exam was performed. 1947: NSS 1000 ml @ 999 mls/hr IV. 2008: I discussed the patient with Poison Control - they said no issues with overdosing at that dosage. The patient should not have any significant withdrawal symptoms. 2221: I reevaluated the patient and discussed the test results with her. I talked to the porter sample case, who also spoke with the patient. The patient does not want [facility] because she has to work, but she requests a short stay in the hospital to get through her physical symptoms in the short term. I talked to the hospitalist and porter sample case and they will try to figure out what is the best treatment for her. 5: I was notified by the porter sample case that the patient was accepted to a rehab facility in [place]. The patient is agreeable with this plan. 2259: I was notified that the patient was denied acceptance to the [place] facility due to the patient's eating disorder issues. The porter sample case is now trying [facility]. Medical Decision This is a 53-year-old female presents for medical detoxification from opiate abuse and dextromethorphan abuse. I did perform a limited focused review of portions of the patient's old chart on the electronic medical record. The patient has had no recent pertinent visits to this hospital. I did evaluate the patient as noted above. The patient is presenting with a long-standing history of opiate and dextromethorphan use. She is not suicidal. She wants to be admitted medically to help her through her withdrawal. I did talk to poison control about her dextromethorphan use today and they stated that there was no cause for concern at that dosage. IV access was established. The patient was placed on a continuous battalion chief. I did treat her with normal saline IV. I did order and personally review the patient's 12-lead EKG as described above. I did order and review the patient's blood work as noted in the electronic medical record. I did have the mental health porter sample case talk to the patient. Patient did not wish to go to a rehab center because she did not want to be in a program for 28 days due to having to work. She wanted to be admitted short-term for a detox program. We did make several referrals here but they did not accept her. I did talk to the hospitalist about admitting patient but he did not feel it was necessary appropriate to admit her for opiate withdrawal. She is currently not having significant symptoms at this time. The porter sample case therefore made arrangements for her to call another facility tomorrow. She was discharged home with a prescription for Vistaril. Medication Reconcilliation Current Medication List: was personally reviewed by me Blood Pressure Screening Patient's blood pressure: Elevated blood pressure Blood pressure disposition: Elevated BP felt to be situational Consults Time Called: 2004 Consulting Physician: Poison Control Returned Call: 2008 I discussed the patient with Poison Control - they said no issues with overdosing at that dosage. The patient should not have any significant withdrawal symptoms. Impression Primary Impression: Opiate dependence Additional Impression: Drug abuse and dependence Scribe Attestation The scribe's documentation has been prepared under my direct and personally reviewed by me in its entirety. I confirm that the note above accurately reflects all work, treatment, procedures, and medical decision making performed by me. Departure Information Dispostion Home / Self-Care Prescriptions Hydroxyzine Pamoate (VISTARIL) 50 Mg Cap 50 MG PO Q8 Y for Nausea or Vomiting, #14 CAP PRN ITCH Prov: Tyrell Guevara M.D. 03/03/18 Referrals Victorina Dotson D.O. (PCP) Patient Instructions My [facility] Problem Qualifiers Primary Impression: Opiate dependence Substance use status: uncomplicated Qualified Codes: F11.20 - Opioid dependence, uncomplicated
[2018-03-03 00:13] VITALS: BP 134/71; PULSE 87; O2SAT 98
== END 2018-03-03 00:14 | disposition home or self-care (01) ==
LOC: C.EDB 19:18 → C.EDA 03-03 00:14
DX: F11.20 Opioid dependence, uncomplicated (principal); F19.20 Other psychoactive substance dependence, uncomplicated; Z98.890 Other specified postprocedural states; F31.9 Bipolar disorder, unspecified; G89.29 Other chronic pain; M54.9 Dorsalgia, unspecified; Z90.711 Acquired absence of uterus with remaining cervical stump; Z90.49 Acquired absence of other specified parts of digestive tract; Z82.49 Family history of ischemic heart disease and other diseases of the circulatory system; F17.210 Nicotine dependence, cigarettes, uncomplicated; Z79.899 Other long term (current) drug therapy; Z91.040 Latex allergy status; Z82.0 Family history of epilepsy and other diseases of the nervous system

== ENCOUNTER 2019-05-20 07:24 | Inpatient (IN) ==
--- NOTE | 2019-04-25 12:52 | PAT Medication Instructions ---
Medication Instructions Date of Service April 25, 2019 Home Medications aripiprazole 15 mg PO QAM atorvastatin 10 mg PO QAM bupropion HCl 300 mg PO QAM divalproex 500 mg PO BID omeprazole 20 mg PO QAM sulindac 150 mg PO BID PRN tamsulosin 0.4 mg PO QAM trazodone 150 mg PO HS dicyclomine 20 mg PO QID ASK your surgeon for instructions sulindac 150 mg PO BID PRN DO NOT take the morning of surgery dicyclomine 20 mg PO QID Take morning of surgery With a small sip of water, OTHERWISE NOTHING TO EAT OR DRINK AFTER MIDNIGHT: aripiprazole 15 mg PO QAM atorvastatin 10 mg PO QAM bupropion HCl 300 mg PO QAM divalproex 500 mg PO BID omeprazole 20 mg PO QAM tamsulosin 0.4 mg PO QAM Take evening before surgery divalproex 500 mg PO BID trazodone 150 mg PO HS dicyclomine 20 mg PO QID Other Notes If you have any questions please call us at [phone] or [phone] or [phone] or [phone]
--- NOTE | 2019-04-26 09:58 | Anesthesiology Consultation ---
Date of Service April 26, 2019 Assessment & Plan (1) Encounter for pre-operative examination: Hx ETOH/prescription opiate abuse; last use 07/2018 (surgeon aware). Chart Review Chart Review: Acceptable Risk for Surgery and Patient seen in Pre Admission Testing Teaching & Discussion Pre-Anesthesia Teaching/Discussion Notes: Instructed NPO after midnight before surgery,except medications with 15 cc of water. Medication instructions provided according to the PAT guidelines. History Surgery Operation Date: 05/20/19 12:05 Proposed Procedures p Right Total Knee Replacement - Enzo Robertson DO Height/Weight Height: 5 ft 8.5 in Weight: 96.7 kg Allergies Allergy/AdvReac Type Severity Reaction Status Date / Time latex Allergy Severe ANAPHYLAXIS Verified 04/12/19 09:08 buprenorphine [From Subutex] Allergy Unknown Anaphylaxis Unverified 04/12/19 09:08 prochlorperazine Allergy Unknown dystonic Unverified 04/12/19 09:08 [From Compazine] reaction Medications Home Medications Medication Instructions Recorded Confirmed Last Taken aripiprazole 15 mg PO QAM 02/25/19 04/12/19 Unknown atorvastatin 10 mg PO QAM 02/25/19 04/12/19 Unknown bupropion HCl 300 mg PO QAM 02/25/19 04/12/19 Unknown divalproex 500 mg PO BID 02/25/19 04/12/19 Unknown omeprazole 20 mg PO QAM 02/25/19 04/12/19 Unknown sulindac 150 mg PO BID PRN 02/25/19 04/12/19 Unknown tamsulosin 0.4 mg PO QAM 02/25/19 04/12/19 Unknown trazodone 150 mg PO HS 02/25/19 04/12/19 Unknown dicyclomine 20 mg PO QID 04/12/19 04/12/19 Unknown Past Medical History Medical History Bipolar disorder Migraines Chronic back pain Anxiety Depression GERD (gastroesophageal reflux disease) CONTROLLED Hiatal hernia History of ovarian cyst Hyperlipidemia IBS (irritable bowel syndrome) Osteoarthritis Temporomandibular joint disorder Exercise / Class Metabolic Activity III < 4 Walking/Shop/Light housework Past Surgical History Surgical History Hx of cholecystectomy History of partial hysterectomy H/O arthroscopic knee surgery History of arthroscopic knee surgery B/L History of bladder repair surgery REPAIR 2/2 INJURY WITH HYSTER, + MESH X2 History of cholecystectomy History of colonoscopy History of esophagogastroduodenoscopy (EGD) History of open reduction and internal fixation (ORIF) procedure S/P RIGHT FIBULA ORIF History of ovarian cystectomy History of surgery COLPORRHAPHY History of tooth extraction Past Anesthesia History No Family Hx of Anesthesia Complications Patient reports post-op urinary retention requiring mora x 1 week History of PONV No Hx of Motion Sickness and History of PONV (NO ISSUES WITH SUBSEQUENT SURGERY WHEN PRE-TREATMENT GIVEN) Social History Smoking Status: Former smoker tobacco type: cigarettes Smoking cigarettes per day: QUIT 11/2018; HX 1/2 PPD 30+ YEARS Do You Dip or Chew Tobacco: No Hx Alcohol Use: No Alcohol Intake Frequency Comment: HX ETOH ABUSE - LAST DRINK 07/2018 Hx Substance Use: Yes substance use type: former substance user Substance Use Type Other:: HX ETOH/PRESCRIPTION OPIATES ABUSE Last Used Substance Other:: 07/2018 Review of Systems Patient denies chest pain, shortness of breath, cough, wheezing, palpitations. Physical Exam Vital Signs VITALS BP 139/86 P 93 TEMP 98.9 SP02 96%RA RESP 18 PHYSICAL Full neck and c-spine range of motion. Full TMJ range of motion. TMD 3 finger breaths Mallampati Score 3 Dentition: intact, left lower side molars implants Lungs: clear throughout to auscultation Cardiac: regular rate and rhythm, no murmurs noted Spine: normal Carotid arteries: negative bruit Extremities: no edema Testing Laboratory Results 04/26/19 10:12 04/26/19 11:14 PT 10.4 Seconds (9.0-12.0) 04/26/19 10:12 INR 1.0 (0.9-1.1) 04/26/19 10:12 APTT 26.8 Seconds (21.0-31.0) 04/26/19 10:12 Blood Type O Positive 04/26/19 10:12 Antibody Screen NEGATIVE 04/26/19 10:12 Electrocardiogram Date: 04/26/19 Findings: + NSR @ (94) Chest X-Ray Date: 04/26/19 Findings: + NAD Atherosclerosis of the aortic arch. Lungs mildly hyperinflated, which may be due to inspiratory effort. Stress Test Date: 06/16/17 Type: DSE Normal pharmacologic stress ECHO. No ECHO or EKG evidence of myocardial ischemia at 110% MPHR. No significant valvular disease. Grade I DD. EF 60-65%.
--- NOTE | 2019-04-26 10:40 | XRay Report ---
XR chest Pre-admission PA/Lat CLINICAL HISTORY: 54 years-old Female presenting with preoperative assessment. TECHNIQUE: PA and lateral views of the chest were obtained. COMPARISON: 06/25/2017. FINDINGS: Atherosclerosis of the aortic arch. Cardiac silhouette normal in size. Lungs mildly hyperinflated, wh ich may be due to inspiratory effort. No focal opacity. No pleural effusion or pneumothorax. Osseous structures normal. Cholecystectomy clips noted. IMPRESSION: 1. No acute cardiopulmonary disease. Electronically signed by: Ramana Guido M.D. 04/26/2019 10:38 AM
[2019-04-26 11:35] LABS: Basophils # (auto) 0.03 K/uL (0-0.2); Basophils % (auto) 0.3 %; Eosinophils # (auto) 0.07 K/uL (0-0.5); Eosinophils % (auto) 0.7 %; Hematocrit (blood only) 48.1 % (37-47); Hemoglobin 16.1 g/dL (12.0-16.0); Immature Granulocytes # (auto) 0.02 K/uL (0.00-0.02); Immature Granulocytes % (auto) 0.2 %; Lymphocytes # (auto) 2.29 K/uL (1.2-3.4); Lymphocytes % (auto) 22.6 %; Mean Corpuscular Hgb Conc 33.5 g/dL (32-36); Mean Corpuscular Volume 94.3 fL (80-100); Mean Platelet Volume 9.9 fL (7.4-10.4); Monocytes # (auto) 0.45 K/uL (0.11-0.59); Monocytes % (auto) 4.4 %; Neutrophils # (auto) 7.27 K/uL (1.4-6.5); Neutrophils % (auto) 71.8 %; Platelet Count 250 K/uL (130-400); RDW Standard Deviation 48.5 fL (36.4-46.3); White Blood Count 10.13 K/uL (4.8-10.8)
[2019-04-26 11:46] LABS: Partial Thromboplastin Time 26.8 Seconds (21.0-31.0); Prothrombin Time 10.4 Seconds (9.0-12.0)
[2019-04-26 12:00] LABS: BUN Creatinine Ratio 13.4 (10-20); Calcium 9.7 mg/dl (8.5-10.1); Creatinine Clr Calc Pharmacy 76.2 ml/min; Est GFR (African American) 69.9; Est GFR (Non-African American) 60.3; Potassium 4.7 mmol/L (3.5-5.1)
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
[~2019-05-20 07:24] MED LIST changes: +ACETAMINOPHEN 500 MG TAB PO SCH; -ATOR10TA82 PO; -BACL10TA PO; -BUPRTAB51 PO; +CEFAZOLIN 2000MG 2,000 MG/15 ML SYR IV SCH; -DICY10CA55 PO; -DTR/5 PO; +FAMOTIDINE 20 MG TAB PO SCH; +GABAPENTIN 900 MG DOSE PO SCH; +LR 500ML BOLUS IV SCH; +LR 500ML BOLUS, THEN 15ML/HR IV SCH; +LR 60ML/HR IV SCH; -MULT-506 PO; -NRN/600 PO; -OXYC-57 PO; +ROPIVACAINE 0.5% HCL/PF 150 MG, BUPIVACAINE 0.5% MPF 30 ML, EPINEPHrine 30MG/30ML (OR U... INSTIL SCH; -SERT100T PO; +TRANEXAMIC ACID 1,000 MG **IV Intra-op IV SCH; +TRANEXAMIC ACID 1,000 MG **IV Pre-op IV SCH
--- OUTSIDE RECORDS SUMMARY | 2019-05-20 07:35 | External Medical Summary | Continuity of Care Document ---
:1965 Author Name Pratik Clark, Provider Address Unavailable Unavailable , Care Team Providers Name Role Phone Marcelo Villafuerte II, DO Unavailable [email or web address] LA [email or web address] Unavailable Unavailable Unavailable Unavailable Unavailable Problems Incontinence (788.30) (R32) Neurogenic bladder (596.54) (N31.9) Urge and stress incontinence (788.33) (N39.46) H/O bladder repair surgery (V45.89) (Z98.890) Acute urinary retention (788.29) (R33.8) Psychological disorder (300.9) (F99) High cholesterol (272.0) (E78.00) Arthritis (716.90) (M19.90) Cervical radiculopathy at C8 (723.4) (M54.12) Ulnar neuropathy of both upper extremities (354.2) (G56.23) Allergies and Adverse Reactions Compazine (Allergy) Latex (Allergy) Medications traZODone HCl - 150 MG Oral Tablet Refills: 0 Wellbutrin XL 300 MG Oral Tablet Extended Release 24 Hour Refills: 0 Gabapentin 600 MG Oral Tablet Refills: 0 Lipitor TABS Refills: 0 Baclofen TABS Refills: 0 cloNIDine HCl - 0.1 MG Oral Tablet Refills: 0 Abilify 10 MG Oral Tablet Refills: 0 Depakote 500 MG Oral Tablet Delayed Release Refills: 0 Tamsulosin HCl - 0.4 MG Oral Capsule; TAKE 1 CAPSULE B edtime Christo DEXTER DO Marcelo Start: 15-Apr-2018 Quantity: 30 Refills: 11 Procedures History of hysterectomy Status: Complete d History of bladder surgery Status: Compl eted History of vaginal sling procedure Statu s: Completed History of lateral meniscus repair Statu s: Completed Immunizations Immunizations not documented Family History Father Family history of malignant neoplasm of prostate (V16. 42) (Z80.42) Status: Active Grandfather Family history of malignant neoplasm of prostate (V16. 42) (Z80.42) Status: Active Family history of cardiac disorder (V17.49) (Z82.49) Status: Active Grandmother Family history of cardiac disorder (V17.49) (Z82.49) Status: Active Social History - Smoking Status Current every day smoker Plan of Treatment Planned Observations Planned Goals not documented Results No Known Results Results not documented Encounters Appointment; Marcelo Villafuerte II, DO 19-May-2018 16:00 Encounter Diagnosis: Problem not documented Appointment; Urology, Room 6 15-Apr-2018 14:30 Encounter Diagnosis: Problem not documented Appointment; Marcelo Villafuerte II, DO 15-Apr-2018 14:30 Encounter Diagnosis: Problem not documented Appointment; Marcelo Villafuerte II, DO 16-Feb-2018 15:50 Encounter Diagnosis: Problem not documented Appointment; Urology, Room 8 16-Feb-2018 15:40 Encounter Diagnosis: Problem not documented Appointment; Marcelo Villafuerte II, DO 08-Jan-2018 10:20 Encounter Diagnosis: Problem not documented Appointment; Anderson Andrade III, M.D. 20-Oct-2017 14:00 Encounter Diagnosis: Problem not documented Appointment; Marcelo Villafuerte II, DO 15-Nov-2018 16:00 Encounter Diagnosis: Problem not documented
[2019-05-20] MEDS ORDERED: BUPIVACAINE 0.5 % 5 MG/1 ML PF 10ML VIAL ONE (07:40)
[2019-05-20] MEDS ORDERED: ROPIVACAINE 0.5% 5 MG/ML 30 ML VIAL ONE (07:40)
[2019-05-20] MEDS ORDERED: MIDAZOLAM HCL 1 MG/ML 2ML VIAL ONE ×2 (08:33→10:11)
[2019-05-20] MEDS ORDERED: PROPOFOL IV EMULSION 10 MG/ML 20 ML VIAL IV ONE (08:33)
[2019-05-20] MEDS ORDERED: DEXAMETHASONE SOD INJ 4 MG/ML VIAL ONE (08:33)
[2019-05-20] MEDS ORDERED: LIDOCAINE HCL 2% 2 ML VIAL/AMP(20MG/ML) INFIL ONE (08:33)
[2019-05-20] MEDS ORDERED: fentaNYL citrate 100 MCG/2 ML VIAL ONE ×2 (08:33→11:06)
[2019-05-20] MEDS ORDERED: ONDANSETRON INJ 2 MG/ML 2 ML VIAL ONE (08:33)
--- NOTE | 2019-05-20 08:39 | History & Physical Bridge Note ---
Date of Service May 20, 2019 History & Physical Bridge Note I have examined the patient, reviewed the History & Physical and in the interval since the performance of the History & Physical I have noted the following changes of clinical significance: no changes noted
[2019-05-20] MEDS ORDERED: ORTHO JOINT ANESTHETIC ONE (09:14)
[2019-05-20] MEDS ORDERED: LABETALOL HCL IV 5 MG/ML 20ML IV PRN (10:15)
[2019-05-20] MEDS ORDERED: ATROPINE SULFATE 0.1 MG/ML 10ML SYR IV PRN (10:15)
[2019-05-20] MEDS ORDERED: KETOROLAC 30 MG/ML VIAL IV PRN (10:15)
[2019-05-20] MEDS ORDERED: HYDROmorphone INJ 2 MG/ML SYR/VIAL ONE (10:39)
[2019-05-20] MEDS ORDERED: NEOSTIGMINE METHYLSULFATE 5 MG/5 ML SYR ONE (11:01)
[2019-05-20] MEDS ORDERED: GLYCOPYRROLATE 0.2 MG/ML VIAL ONE (11:01)
[2019-05-20] MEDS ORDERED: ROCURONIUM BROMIDE 10 MG/ML 5 ML VIAL ONE (11:01)
[2019-05-20] MEDS ORDERED: KETAMINE HCL INJ 50 MG/ML 10 ML VIAL ONE (11:12)
[2019-05-20] MEDS ORDERED: DexMEDEtomidine HCL IV 100 MCG/ML VIAL ONE (11:21)
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
[2019-05-20] MEDS: HYDROmorphone INJ 1 MG/ML SYRINGE IV PRN ×7 (12:25→13:05)
--- NOTE | 2019-05-20 12:50 | XRay Report ---
RIGHT KNEE 2 VIEWS History: Right total knee arthroplasty. Degenerative arthritis. Postop. FINDINGS: The patient is status post a right total knee arthroplasty. The hardware is intact. No frac ture or dislocation. Skin marin and surgical drains are in place. IMPRESSION: Right total knee arthroplasty. No evidence for hardware complication. Electronically signed by: Paulie Banks M.D. 05/20/2019 12:49 PM
--- NOTE | 2019-05-20 13:25 | Anesthesiology Progress Note ---
Date of Service May 20, 2019 Anesthesia Post Procedure Vital Signs Vital Signs: Temp Pulse Pulse Resp BP Pulse Ox 05/20/19 13:15 36.7 C 86 16 125/79 92 05/20/19 13:05 92 H 16 135/87 95 05/20/19 12:55 94 H 17 132/86 94 05/20/19 12:45 94 H 13 127/72 93 05/20/19 12:35 83 16 127/82 100 05/20/19 12:25 87 15 91/58 L 100 05/20/19 12:17 36.2 C L 93 H 16 119/81 94 05/20/19 07:59 36.8 C 72 18 141/95 H 93 Pain Intensity Right Knee: Pain Intensity: 4 Transfer of Care Handoff Completed per policy Notes Mental Status: alert / awake / arousable Patient Amnestic to Procedure: Yes Nausea / Vomiting: adequately controlled Pain: adequately controlled Airway Patency, RR, SpO2: stable & adequate BP & HR: stable & adequate Hydration State: stable & adequate Anesthetic Complications: no major complications apparent
[2019-05-20] MEDS ORDERED: MAGNESIUM HYDROXIDE SUSP 30 ML UDC PO PRN (13:42)
[2019-05-20] MEDS ORDERED: METOCLOPRAMIDE HCL INJ 5 MG/ML 2 ML VIAL IV PRN (13:42)
[2019-05-20] MEDS ORDERED: ONDANSETRON INJ 2 MG/ML 2 ML VIAL IV PRN (13:42)
[2019-05-20] MEDS ORDERED: NALOXONE HCL 0.4 MG/1 ML VIAL/CARP IV PRN (13:42)
[2019-05-20] MEDS ORDERED: BISACODYL 10 MG SUPP PR PRN (13:42)
[2019-05-20] MEDS ORDERED: SULINDAC 150 MG TAB PO PRN (13:42)
[2019-05-20] MEDS ORDERED: SODIUM CHLORIDE 0.9% 1000ML 1,000 ML IV SCH (13:50)
[2019-05-20] MEDS: DICYCLOMINE HCL 20 MG TAB PO SCH ×3 (15:07→20:18)
[2019-05-20] MEDS: KETOROLAC 30 MG/ML VIAL IV SCH ×2 (15:07→19:19)
[2019-05-20] MEDS: OXYCODONE/APAP 7.5/325MG TAB PO PRN ×2 (16:09→20:18)
[2019-05-20] MEDS: HYDROmorphone INJ 0.5 MG/0.5 ML SYR IV PRN ×2 (17:00→21:06)
[2019-05-20] MEDS: CEFAZOLIN 2000MG 2,000 MG/15 ML SYR IV SCH (18:01)
[2019-05-20] MEDS: ASPIRIN 81 MG ECTAB PO SCH (20:18)
[2019-05-20] MEDS: SENNA 8.6 MG TAB PO SCH (20:18)
[2019-05-20] MEDS: DIVALPROEX DELAY RELEASE 500 MG TAB PO SCH (20:18)
[2019-05-20] MEDS: DOCUSATE SODIUM 100 MG CAP PO SCH (20:18)
[2019-05-21] MEDS: OXYCODONE/APAP 7.5/325MG TAB PO PRN ×6 (00:17→21:13)
[2019-05-21] MEDS: HYDROmorphone INJ 0.5 MG/0.5 ML SYR IV PRN ×3 (01:10→11:59)
[2019-05-21] MEDS: CEFAZOLIN 2000MG 2,000 MG/15 ML SYR IV SCH ×2 (02:37→03:13)
[2019-05-21] MEDS: KETOROLAC 30 MG/ML VIAL IV SCH ×4 (02:38→19:01)
[2019-05-21] MEDS: TAMSULOSIN HCL 0.4 MG CAP PO SCH (05:08)
[2019-05-21 05:45] LABS: Hemoglobin 12.1 g/dL (12.0-16.0); Mean Corpuscular Hgb Conc 32.7 g/dL (32-36); Mean Corpuscular Volume 93.7 fL (80-100); Mean Platelet Volume 9.4 fL (7.4-10.4); Platelet Count 216 K/uL (130-400); RDW Coefficient of Variation 13.2 % (11.5-14.5); RDW Standard Deviation 45.5 fL (36.4-46.3); Red Blood Count 3.95 M/uL (4.2-5.4); White Blood Count 14.65 K/uL (4.8-10.8)
[2019-05-21 06:11] LABS: BUN Creatinine Ratio 13.9 (10-20); Creatinine Clr Calc Pharmacy 86.4 ml/min; Est GFR (African American) 81.9; Est GFR (Non-African American) 70.7; Potassium 4.4 mmol/L (3.5-5.1)
[2019-05-21] MEDS: DIVALPROEX DELAY RELEASE 500 MG TAB PO SCH ×2 (08:00→21:12)
[2019-05-21] MEDS: ARIPiprazole 15 MG TAB PO SCH (08:00)
[2019-05-21] MEDS: PANTOprazole 40 MG TAB PO SCH (08:00)
[2019-05-21] MEDS: MULTIVITAMIN TAB PO SCH (08:01)
[2019-05-21] MEDS: BuPROPion XL 300 MG TABCR PO SCH (08:01)
[2019-05-21] MEDS: DICYCLOMINE HCL 20 MG TAB PO SCH ×4 (08:01→21:13)
[2019-05-21] MEDS: ASPIRIN 81 MG ECTAB PO SCH ×2 (08:01→21:12)
[2019-05-21] MEDS: DOCUSATE SODIUM 100 MG CAP PO SCH ×2 (08:01→21:13)
[2019-05-21] MEDS: ATORVASTATIN 10 MG TAB PO SCH (08:01)
[2019-05-21] MEDS ORDERED: TAMSULOSIN HCL 0.4 MG CAP PO SCH (09:00)
--- NOTE | 2019-05-21 10:26 | Orthopedic Progress Note ---
Date of Service May 21, 2019 Assessment & Plan (1) Post-traumatic osteoarthritis of right knee: Overall she is doing fairly well. She is having a little bit of pain in her right knee but is not too bad. She is been participating well with physical therapy. She is on aspirin for DVT prophylaxis. We will keep her in the hospital today so she can get physical therapy tomorrow and make sure her pain is well controlled. I will see her tomorrow morning. Plan to discharge her to home at that time. Present on Admission?: Yes Subjective Noemy was seen and examined at bedside this morning. Overall she is doing fairly well. She is already been ambulating around the nurses station. She has a little bit of soreness in her knee but is not too bad. She has no other complaints. Physical Exam Musculoskeletal: On physical examination of the right knee, the dressing is clean and dry. Her legs out in full extension. She is active dorsiflexion and plantarflexion of the right ankle. Sensations intact throughout. Results & Data Vital Signs (Past 12 Hours) Vital Signs Temp Pulse Resp BP Pulse Ox 05/21/19 07:21 36.9 C 74 18 132/73 97 05/21/19 02:29 36.4 C L 77 16 121/77 99 05/20/19 23:46 97 05/20/19 23:05 36.7 C 91 H 16 125/80 89 L Laboratory Results H & H 04/26/19 05/21/19 Range/Units 10:12 05:28 Hgb 16.1 H 12.1 (12.0-16.0) g/dL Hct 48.1 H 37.0 (37-47) % Coagulation 04/26/19 Range/Units 10:12 INR 1.0 (0.9-1.1) Diagnostic Findings Postoperative x-rays of the right knee show the prosthesis to be in anatomic alignment without any evidence of fracture, dislocation, or loosening.
[2019-05-21] MEDS: HYDROmorphone INJ 1 MG/ML SYRINGE IV PRN ×2 (15:45→19:45)
[2019-05-21] MEDS: SENNA 8.6 MG TAB PO SCH (21:12)
[2019-05-22] MEDS: HYDROmorphone INJ 1 MG/ML SYRINGE IV PRN (00:01)
[2019-05-22] MEDS: KETOROLAC 30 MG/ML VIAL IV SCH ×2 (02:02→07:22)
[2019-05-22] MEDS: OXYCODONE/APAP 7.5/325MG TAB PO PRN ×3 (02:51→11:26)
[2019-05-22] MEDS: TAMSULOSIN HCL 0.4 MG CAP PO SCH (05:15)
--- NOTE | 2019-05-22 07:39 | Orthopedic Progress Note ---
Date of Service May 22, 2019 Assessment & Plan (1) Post-traumatic osteoarthritis of right knee: Overall she is doing very well. She is not having too much pain in the right knee. She is on aspirin for DVT prophylaxis. She will be seen by physical therapy again today. She can be discharged home after physical therapy. She will follow-up with orthopedics in 2 weeks. Present on Admission?: Yes Subjective Margo was seen and examined at bedside this morning. Overall she is doing very well. She is been walking laps around the nurses station. Her pain is well controlled. She has no complaints. Physical Exam Musculoskeletal: On physical examination of the right knee, the dressing has been changed and the incision is clean and dry. There is a little bit of ecchymosis which is to be expected. She is neurovascular intact. Results & Data Vital Signs (Past 12 Hours) Vital Signs Temp Pulse Resp BP Pulse Ox 05/21/19 23:45 36.9 C 64 18 103/64 94
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
[2019-05-22] MEDS: PANTOprazole 40 MG TAB PO SCH (08:19)
[2019-05-22] MEDS: DICYCLOMINE HCL 20 MG TAB PO SCH (08:46)
[2019-05-22] MEDS: ATORVASTATIN 10 MG TAB PO SCH (08:46)
[2019-05-22] MEDS: DOCUSATE SODIUM 100 MG CAP PO SCH (08:46)
[2019-05-22] MEDS: MULTIVITAMIN TAB PO SCH (08:46)
[2019-05-22] MEDS: BuPROPion XL 300 MG TABCR PO SCH (08:46)
[2019-05-22] MEDS: DIVALPROEX DELAY RELEASE 500 MG TAB PO SCH (08:47)
[2019-05-22] MEDS: ARIPiprazole 15 MG TAB PO SCH (08:47)
[2019-05-22] MEDS: ASPIRIN 81 MG ECTAB PO SCH (08:47)
== END 2019-05-22 11:56 | disposition home or self-care (01) | DRG 470 ==
LOC: ASU 07:24 → 3E 12:20

== ENCOUNTER 2019-05-24 21:10 | Observation (INO) ==
[2019-05-24] MEDS ORDERED: SODIUM CHLORIDE 0.9% 1000ML 1,000 ML IV ONE (22:44)
[2019-05-24] MEDS ORDERED: SODIUM CHLORIDE 0.9% 1000ML 1,000 ML IV SCH (22:45)
[2019-05-24 22:55] LABS: Basophils # (auto) 0.04 K/uL (0-0.2); Basophils % (auto) 0.5 %; Eosinophils # (auto) 0.35 K/uL (0-0.5); Eosinophils % (auto) 4.1 %; Hematocrit (blood only) 37.8 % (37-47); Hemoglobin 12.8 g/dL (12.0-16.0); Immature Granulocytes # (auto) 0.06 K/uL (0.00-0.02); Immature Granulocytes % (auto) 0.7 %; Lymphocytes # (auto) 1.27 K/uL (1.2-3.4); Lymphocytes % (auto) 14.8 %; Mean Corpuscular Hgb Conc 33.9 g/dL (32-36); Mean Corpuscular Volume 93.3 fL (80-100); Mean Platelet Volume 9.5 fL (7.4-10.4); Monocytes # (auto) 0.53 K/uL (0.11-0.59); Monocytes % (auto) 6.2 %; Neutrophils # (auto) 6.34 K/uL (1.4-6.5); Neutrophils % (auto) 73.7 %; Platelet Count 243 K/uL (130-400); RDW Coefficient of Variation 13.3 % (11.5-14.5); RDW Standard Deviation 45.7 fL (36.4-46.3); Red Blood Count 4.05 M/uL (4.2-5.4); White Blood Count 8.59 K/uL (4.8-10.8)
[2019-05-24 23:04] LABS: Albumin Globulin Ratio 0.8 (0.9-2); Albumin Level 3.2 gm/dl (3.4-5.0); BUN Creatinine Ratio 6.8 (10-20); Bilirubin,Total 0.7 mg/dl (0.2-1); Calcium 9.9 mg/dl (8.5-10.1); Creatinine Clr Calc Pharmacy 90.1 ml/min; Est GFR (Non-African American) 77.7; Potassium 3.9 mmol/L (3.5-5.1); Total Protein 7.2 gm/dl (6.4-8.2)
[2019-05-24 23:29] LABS: Acetaminophen < 2 ug/ml (10-30); Salicylate < 1.7 mg/dl (2.8-20); Valproic Acid 61 mcg/ml (50-100)
[2019-05-25 00:25] LABS: Amphetamines+Metham, Urine Neg (Neg); Barbiturates, Urine Neg (Neg); Benzodiazepine, Urine Neg (Neg); Cocaine, Urine Neg (Neg); MDMA (Ecstacy), Urine Pos (Neg); Methadone, Urine Neg (Neg); Opiate, Urine Neg (Neg); Phencyclidine, Urine Neg (Neg)
--- NOTE | 2019-05-25 01:19 | Emergency Department Note ---
Entered by Chin Brooks acting as a scribe for History of Present Illness General Chief complaint: Altered Mental Status Stated complaint: OVERDOSE Time Seen by Provider: 05/24/19 22:26 Source: patient, friends and other (nursing) Limitations: altered mental status History of Present Illness Onset (ago): day(s) (today at 1930) Location: head Pain Consistency: + constant Quality: + other (AMS) Associated symptoms: + other (Negative for suicidal ideations, shakiness, and nausea.) The patient is a 54 year old female who presents to the emergency department with complaints of a constant altered mental status beginning today at 1930. Per friend, the patient has a history of bipolar and he states that the patient is a recovering addict. He notes that the patient had a total right knee replacement done four days ago and he reports that the patient was released two days ago. He states that the patient was prescribed oxycodone. He notes that he gave the patient her dose of oxycodone before he went to a meeting today around 1600. He reports that when he came about around 1930, the patient had pills surrounding her and he states that the patient was drinking a bottle of medication used for upset stomachs. He notes that he might have seen the patient take 3 clonidine pills. He reports that the patient then started acting inappropriately. He sta lorenzo that the patients words are all over the place and he notes that she is not acting like herself. The patient denies any suicidal ideations, shakiness, and nausea. Per nurse, the patient had bottles of dicyclomine, valproic acid, trazodone, bupropion, clonidine, and baclofen. HPI limited secondary to AMS. Home Medications Home Medications Medication Instructions Recorded Confirmed Type aripiprazole 15 mg PO QAM 02/25/19 05/24/19 History atorvastatin 10 mg PO QAM 02/25/19 05/24/19 History bupropion HCl 300 mg PO QAM 02/25/19 05/24/19 History divalproex 500 mg PO BID 02/25/19 05/24/19 History omeprazole 20 mg PO QAM 02/25/19 05/24/19 History sulindac 150 mg PO BID PRN 02/25/19 05/24/19 History tamsulosin 0.4 mg PO QAM 02/25/19 05/24/19 History trazodone 150 mg PO HS 02/25/19 05/24/19 History dicyclomine 20 mg PO QID 04/12/19 05/24/19 History aspirin [Ecotrin Low Strength] 81 mg PO BID #84 tab 05/22/19 05/24/19 Rx oxycodone-acetaminophen [Endocet] 1 tab PO Q4H PRN #60 tab 05/22/19 05/24/19 Rx Allergies Allergy/AdvReac Type Severity Reaction Status Date / Time latex Allergy Severe ANAPHYLAXIS Verified 05/20/19 07:55 buprenorphine [From Subutex] Allergy Unknown Anaphylaxis Verified 05/20/19 07:55 prochlorperazine Allergy Unknown dystonic Verified 05/20/19 07:55 [From Compazine] reaction Past Med/Surg History Medical History Post-traumatic osteoarthritis of right knee Encounter for pre-operative examination Right knee injury (Acute) Urinary retention (Acute) Bipolar disorder Migraines Chronic back pain Anxiety Depression GERD (gastroesophageal reflux disease) CONTROLLED Hiatal hernia History of ovarian cyst Hyperlipidemia IBS (irritable bowel syndrome) Osteoarthritis Temporomandibular joint disorder Surgical History Hx of cholecystectomy History of partial hysterectomy H/O arthroscopic knee surgery History of arthroscopic knee surgery B/L History of bladder repair surgery REPAIR 2/2 INJURY WITH HYSTER, + MESH X2 History of cholecystectomy History of colonoscopy History of esophagogastroduodenoscopy (EGD) History of open reduction and internal fixation (ORIF) procedure S/P RIGHT FIBULA ORIF History of ovarian cystectomy History of surgery COLPORRHAPHY History of tooth extraction Family History Other No significant family history Social History Preferred Language: Turkmen Communication Ability: Effective Beliefs That Will Affect Care: None marital status: Single Current Living Situation: Alone current occupational status: employed Feels Safe at Home: Declines to Answer Smoking Status: Unknown if ever smoked Hx Alcohol Use: No Hx Substance Use: Yes substance use type: former substance user Substance Use Type Other:: HX ETOH/PRESCRIPTION OPIATES ABUSE Review of Systems ROS limited secondary to AMS. Physical Exam Vital Signs Vital Signs - 24 hr 05/24/19 21:15 05/24/19 21:22 05/24/19 21:27 Temperature 37.2 C Temperature Source Oral Sepsis Recent Fever Within 48 Hours No Sepsis New/Unexplained Change in Mental Status No Sepsis Action Taken by Nursing No Action Required Pulse Rate 123 H 118 H 118 H Pulse Rate [Apical] Pulse Rate from SpO2 Sensor 123 H 120 H Respiratory Rate 24 20 16 Respiratory Effort / Characteristics Non-Labored Spontaneous Respiratory Depth Normal Respiratory Pattern Regular Blood Pressure 132/78 132/78 Blood Pressure [Right Arm] Blood Pressure Mean 96 96 Blood Pressure Mean [Right Arm] Blood Pressure Position Lying Pulse Oximetry 95 94 97 Oxygen Delivery Method Room Air 05/24/19 21:30 05/24/19 22:00 05/24/19 22:30 Temperature Temperature Source Sepsis Recent Fever Within 48 Hours Sepsis New/Unexplained Change in Mental Status Sepsis Action Taken by Nursing Pulse Rate 115 H 116 H 97 H Pulse Rate [Apical] Pulse Rate from SpO2 Sensor Respiratory Rate 26 H 20 17 Respiratory Effort / Characteristics Respiratory Depth Respiratory Pattern Blood Pressure Blood Pressure [Right Arm] Blood Pressure Mean Blood Pressure Mean [Right Arm] Blood Pressure Position Pulse Oximetry Oxygen Delivery Method 05/24/19 23:30 05/24/19 23:31 05/25/19 00:00 Temperature Temperature Source Sepsis Recent Fever Within 48 Hours Sepsis New/Unexplained Change in Mental Status Sepsis Action Taken by Nursing Pulse Rate 118 H 107 H Pulse Rate [Apical] 105 H Pulse Rate from SpO2 Sensor 111 H Respiratory Rate 18 18 22 Respiratory Effort / Characteristics Respiratory Depth Normal Respiratory Pattern Blood Pressure 119/93 112/82 Blood Pressure [Right Arm] 119/93 Blood Pressure Mean 101 92 Blood Pressure Mean [Right Arm] 101 Blood Pressure Position Pulse Oximetry 93 92 Oxygen Delivery Method Room Air 05/25/19 00:30 05/25/19 01:00 Temperature Temperature Source Sepsis Recent Fever Within 48 Hours Sepsis New/Unexplained Change in Mental Status Sepsis Action Taken by Nursing Pulse Rate 95 H 103 H Pulse Rate [Apical] Pulse Rate from SpO2 Sensor Respiratory Rate 17 19 Respiratory Effort / Characteristics Respiratory Depth Respiratory Pattern Blood Pressure 129/84 128/100 Blood Pressure [Right Arm] Blood Pressure Mean 99 109 Blood Pressure Mean [Right Arm] Blood Pressure Position Pulse Oximetry Oxygen Delivery Method General: Non-ill appearing middle age female in no acute distress. HEENT: Normal cephalic atraumatic. Pupils are midsize and interactive. Orophar ynx is pink with moist mucous membranes. No swelling of the mouth lips or tongue. Neck: Supple with a midline trachea. No meningeal signs or stiffness, no JVD or bruits. No Stridor. Chest: Clear to auscultation bilaterally. No wheezes or rhonchi. No increased work of breathing. Heart: regular rate and rhythm. Abdomen: Soft nontender, nondistended without rebound guarding or rigidity. Extremities: No cyanosis clubbing or edema. No calf tenderness or asymmetry. Healing post operative wound on right knee. Spine/Back. Non tender to palpation. No CVA tenderness Skin: Good turgor without rashes. Neurologic exam: Cranial nerves two through 12 are intact. Motor and sensation are intact and symmetrical throughout. Answers some questions appropriately, answering others not appropriately, blank stare at times but normal level of consciousness. Course 2227: The patient was evaluated in room A2. A complete history and physical exam was performed. 2248: I spoke to the poison center. Poison center states that the patient will need to be observed and to use usual protocols. 2338: I reevaluated and updated the patient. Her vitals are stable. The patient's friend went to [facility] and found more pills scattered on the floor. He found the bottle of liquid and it is an over the counter anti-nausea medication with main ingredients of glucose and fructose. 0041: Upon reevaluation, the patient is stable. I discussed the findings and the treatment plan with the patient. She expresses agreement and understanding. I spoke with Dr. Mora of the [facility]ist [facility]. The patient will be evaluated for further management. Consultations Consultation #1: [facility] He will evaluate the patient for further management. Time: 00:41 Administered Medications Discontinued Medications Sodium Chloride (Nss 1000ml) 1,000 mls @ 999 mls/hr IV .Q1H1M SAMIA Stop: 05/24/19 23:45 Last Admin: 05/24/19 22:48 Dose: 999 mls/hr Documented by: [id number] Sodium Chloride (Nss 1000ml) 1,000 mls @ 999 mls/hr IV .Q1H1M ONE Stop: 05/24/19 23:44 Last Admin: 05/24/19 22:48 Dose: 999 mls/hr Documented by: [id number] Medical Decision Making Differential Diagnosis Differential diagnoses include: overdose and electrolyte/metabolic abnormalities. Medical Records Attestation: I reviewed the patient's medical records. Home Medications Current Medication List: was personally reviewed by me Laboratory Data Attestation: I reviewed the patient's lab results. Result diagrams: 05/24/19 21:24 05/24/19 21:24 Lab Results 05/24/19 05/24/19 05/24/19 Range/Units 21:24 21:24 21:24 WBC 8.59 (4.8-10.8) K/uL RBC 4.05 L (4.2-5.4) M/uL Hgb 12.8 (12.0-16.0) g/dL Hct 37.8 (37-47) % MCV 93.3 (80-100) fL MCH 31.6 (25-34) pg MCHC 33.9 (32-36) g/dL RDW Std Deviation 45.7 (36.4-46.3) fL RDW Coeff of Ace 13.3 (11.5-14.5) % Plt Count 243 (130-400) K/uL MPV 9.5 (7.4-10.4) fL Immature Gran % (Auto) 0.7 % Neut % (Auto) 73.7 % Lymph % (Auto) 14.8 % Hancock % (Auto) 6.2 % Eos % (Auto) 4.1 % Baso % (Auto) 0.5 % Immature Gran # (Auto) 0.06 H (0.00-0.02) K/uL Neut # (Auto) 6.34 (1.4-6.5) K/uL Lymph # (Auto) 1.27 (1.2-3.4) K/uL Hancock # (Auto) 0.53 (0.11-0.59) K/uL Eos # (Auto) 0.35 (0-0.5) K/uL Baso # (Auto) 0.04 (0-0.2) K/uL Sodium 138 (136-145) mmol/L Potassium 3.9 (3.5-5.1) mmol/L Chloride 101 (98-107) mmol/L Carbon Dioxide 32 (21-32) mmol/L Anion Gap 5.0 (3-11) BUN 6 L (7-18) mg/dl Creatinine 0.86 (0.6-1.2) mg/dl Est Cr Clr Drug Dosing 90.1 ml/min Est GFR ( Amer) 90.0 Est GFR (Non-Af Amer) 77.7 BUN/Creatinine Ratio 6.8 L (10-20) Glucose 116 H (70-99) mg/dl Calcium 9.9 (8.5-10.1) mg/dl Total Bilirubin 0.7 (0.2-1) mg/dl AST 34 (15-37) U/L ALT 45 (12-78) U/L Alkaline Phosphatase 119 H (45-117) U/L Total Protein 7.2 (6.4-8.2) gm/dl Albumin 3.2 L (3.4-5.0) gm/dl Globulin 4.0 (2.5-4.0) gm/dl Albumin/Globulin Ratio 0.8 L (0.9-2) Salicylates < 1.7 L (2.8-20) mg/dl Urine Opiates Screen (Neg) Ur Methadone, Qual (Neg) Acetaminophen < 2 L (10-30) ug/ml Urine Barbiturates (Neg) Valproic Acid 61 (50-100) mcg/ml Ur Phencyclidine (PCP) (Neg) U Amphetamin/Meth Scrn (Neg) MDMA (Ecstasy) Screen (Neg) U Benzodiazepines Scrn (Neg) Ur Cocaine Metabolite (Neg) U Marijuana (THC) Screen (Neg) Ethyl Alcohol mg/dL (0-3) mg/dl 05/24/19 05/24/19 Range/Units 23:27 23:30 WBC (4.8-10.8) K/uL RBC (4.2-5.4) M/uL Hgb (12.0-16.0) g/dL Hct (37-47) % MCV (80-100) fL MCH (25-34) pg MCHC (32-36) g/dL RDW Std Deviation (36.4-46.3) fL RDW Coeff of Ace (11.5-14.5) % Plt Count (130-400) K/uL MPV (7.4-10.4) fL Immature Gran % (Auto) % Neut % (Auto) % Lymph % (Auto) % Hancock % (Auto) % Eos % (Auto) % Baso % (Auto) % Immature Gran # (Auto) (0.00-0.02) K/uL Neut # (Auto) (1.4-6.5) K/uL Lymph # (Auto) (1.2-3.4) K/uL Hancock # (Auto) (0.11-0.59) K/uL Eos # (Auto) (0-0.5) K/uL Baso # (Auto) (0-0.2) K/uL Sodium (136-145) mmol/L Potassium (3.5-5.1) mmol/L Chloride (98-107) mmol/L Carbon Dioxide (21-32) mmol/L Anion Gap (3-11) BUN (7-18) mg/dl Creatinine (0.6-1.2) mg/dl Est Cr Clr Drug Dosing ml/min Est GFR ( Amer) Est GFR (Non-Af Amer) BUN/Creatinine Ratio (10-20) Glucose (70-99) mg/dl Calcium (8.5-10.1) mg/dl Total Bilirubin (0.2-1) mg/dl AST (15-37) U/L ALT (12-78) U/L Alkaline Phosphatase (45-117) U/L Total Protein (6.4-8.2) gm/dl Albumin (3.4-5.0) gm/dl Globulin (2.5-4.0) gm/dl Albumin/Globulin Ratio (0.9-2) Salicylates (2.8-20) mg/dl Urine Opiates Screen Neg (Neg) Ur Methadone, Qual Neg (Neg) Acetaminophen (10-30) ug/ml Urine Barbiturates Neg (Neg) Valproic Acid (50-100) mcg/ml Ur Phencyclidine (PCP) Neg (Neg) U Amphetamin/Meth Scrn Neg (Neg) MDMA (Ecstasy) Screen Pos H (Neg) U Benzodiazepines Scrn Neg (Neg) Ur Cocaine Metabolite Neg (Neg) U Marijuana (THC) Screen Neg (Neg) Ethyl Alcohol mg/dL < 3.0 (0-3) mg/dl ECG Data Attestation: I personally reviewed and interpreted this ECG as follows: Indication: altered mental status Rate (beats per minute): 97 Rhythm: normal sinus Findings: no PAC, no PVC, no ST depression and no ST elevation Comparison ECG Date: from (05/06/2019) Change: no significant change Blood Pressure Blood Pressure Findings: Normal blood pressure Blood Pressure Disposition: did not require urgent referral MDM Narrative This patient is brought in by EMS. She was found with altered mental status and confusion. According to EMS as well as her friend there were scattered pills and pill bottles. She was also drinking [id number] antinausea medication which is fructose/glucose according to label. She does have a history of addiction and recently had a knee replacement on Thursday. Her friend has been managing her oxycodone and gave her a dose at 4 when he came to check her at about 730, he noticed this abrupt change where she had taken a bunch of pills she put up a bottle of clonidine to her mouth and he was there and he thinks she took 3 pills. She has multiple pill bottles that are mostly partially full. It is unclear of her motivations at this point. She was placed on a court monitor she was initially mildly tachycardic she received IV fluids she is been normotensive. I did review her medication list and there are several medic ations that do concern me including clonidine, valproic acid, baclofen, trazodone, Wellbutrin, dicyclomine. I did discuss case with the poison center. She had a full toxicologic work-up. Her initial EKG does not show a prolonged QT interval. She also has a normal QRS complex. Her blood work was unremarkable. She has negative aspirin and Tylenol levels. Her valproic acid is 62. Her mental status is somewhat confused. she is awake and talks and answers some questions appropriately but she is not at her baseline at this point. The poison center did recommend we admit/observe her as she has multiple potential medications that she could have taken that all have different half- life's and toxicities. I discussed case with Dr. Mora who saw her in the ER for these measures Impression & Plan Polysubstance overdose, Altered mental status Discharge Plan Visit Data Chief Complaint: Altered Mental Status Stated Complaint: OVERDOSE ED Provider: Enzo Massey Discharge Problem: Polysubstance overdose, Altered mental status Patient Disposition: Being Evaluated by Hospitalist Forms Stand Alone Forms: My [facility] [place] [facility] Prescriptions Prescriptions: No Action atorvastatin 10 mg tablet 10 mg PO QAM RF: 0 sulindac 150 mg tablet 150 mg PO BID PRN (Reason: chronic pain) RF: 0 divalproex 500 mg tablet,delayed release (DR/EC) 500 mg PO BID RF: 0 tamsulosin 0.4 mg capsule 0.4 mg PO QAM RF: 0 trazodone 150 mg tablet 150 mg PO HS RF: 0 omeprazole 20 mg capsule,delayed release(DR/EC) 20 mg PO QAM RF: 0 aripiprazole 15 mg tablet 15 mg PO QAM RF: 0 bupropion HCl 300 mg tablet extended release 24 hr 300 mg PO QAM RF: 0 dicyclomine 20 mg Tablet 20 mg PO QID RF: 0 oxycodone-acetaminophen [Endocet] 7.5-325 mg Tablet 1 tab PO Q4H PRN (Reason: pain) Qty: 60 RF: 0 aspirin [Ecotrin Low Strength] 81 mg Tablet,Delayed Release (Dr/Ec) 81 mg PO BID Qty: 84 RF: 0 Referrals Referrals: Victorina Dotson DO [Primary Care Provider] - Discharge Problem: Polysubstance overdose Qualifiers: Encounter type: initial encounter Injury intent: undetermined intent Qualified Code(s): T50.904A - Poisoning by unspecified drugs, medicaments and biological substances, undetermined, initial encounter Altered mental status Qualifiers: Altered mental status type: unspecified Qualified Code(s): R41.82 - Altered mental status, unspecified The scribe's documentation has been prepared under my direction and personally reviewed by me in its entirety. I confirm that the note above accurately reflects all work, treatment, procedures, and medical decision making performed by me.
--- NOTE | 2019-05-25 01:33 | History & Physical Report ---
Date of Service May 25, 2019 Assessment & Plan (1) Altered mental status: Altered mental status probably secondary to polysubstance overdose. Will need further evaluation if mental status does not improve. (2) Polysubstance overdose: Apparently ingested a combination of her usual prescription medications, but exact drugs that were ingested and the quantity of each are unknown. Hemodynamically stable. No arrhythmias, prolonged QRS, or prolonged QTC. No seizures. ED provider discussed case with Poison Control. Monitor for arrhythmias. Seizure precautions. Check follow-up EKG. Check follow-up valproic acid level. Patient unable to articulate why she ingested medications, but denies self-harm. Consult Psychiatry if any ongoing concerns. (3) Bipolar disorder: Resume usual medications with caution once mental status improved. Consult Psychiatry if any ongoing concerns. (4) Urinary retention: Patient perform straight caths as needed which will be continued. (5) Status post total right knee replacement: Right knee incision without erythema or drainage. Avoid further use of narcotic analgesics if possible. Follow-up with Orthopedics. (6) DVT prophylaxis: SCDs at this time. Resume aspirin when able. Ambulate. (7) Discharge planning issues: Anticipated discharge to home. Primary care follow-up with Dr. Dotson. Orthopedics follow-up with Dr. Robertson. History of Present Illness Chief Complaint: confusion Primary Care Provider: Victorina Dotson, DO 54-year-old female followed by Dr. Dotson. History of narcotic addiction in the past, but has abstained for some time. Right total knee arthroplasty performed last week. Patient was having significant postoperative pain and was prescribed oxycodoneacetaminophen for pain. She was discharged on 05/22 to home. Precautions were taken because of her history of narcotic addiction in the past; a friend was keeping her oxycodoneacetaminophen locked up and was monitoring dosing. This evening her friend found her to be very confused with several different loose medications surrounding her. Apparently the medications were her prescribed medications. It was unclear which when she ingested and how many of each. She was brought to the ED because of altered mental status. In the ED, she demonstrated ongoing confusion. ED provider consulted Poison Control. She is referred for further evaluation and monitoring. At the time of my assessment, she was still somewhat confused, but more alert. She could not articulate why it appeared that she may have taking extra medication. She denied any suicidal ideation. Having ongoing postop pain. No chest pain, cough, SOB, nausea, vomiting. Allergies Allergy/AdvReac Type Severity Reaction Status Date / Time latex Allergy Severe ANAPHYLAXIS Verified 05/20/19 07:55 buprenorphine [From Subutex] Allergy Unknown Anaphylaxis Verified 05/20/19 07:55 prochlorperazine Allergy Unknown dystonic Verified 05/20/19 07:55 [From Compazine] reaction Home Medications Home Medications Medication Instructions Recorded Confirmed Type aripiprazole 15 mg PO QAM 02/25/19 05/24/19 History atorvastatin 10 mg PO QAM 02/25/19 05/24/19 History bupropion HCl 300 mg PO QAM 02/25/19 05/24/19 History divalproex 500 mg PO BID 02/25/19 05/24/19 History omeprazole 20 mg PO QAM 02/25/19 05/24/19 History sulindac 150 mg PO BID PRN 02/25/19 05/24/19 History tamsulosin 0.4 mg PO QAM 02/25/19 05/24/19 History trazodone 150 mg PO HS 02/25/19 05/24/19 History dicyclomine 20 mg PO QID 04/12/19 05/24/19 History aspirin [Ecotrin Low Strength] 81 mg PO BID #84 tab 05/22/19 05/24/19 Rx oxycodone-acetaminophen [Endocet] 1 tab PO Q4H PRN #60 tab 05/22/19 05/24/19 Rx Past Med/Surg History Medical History Post-traumatic osteoarthritis of right knee Encounter for pre-operative examination Right knee injury (Acute) Urinary retention (Acute) Bipolar disorder Migraines Chronic back pain Anxiety Depression GERD (gastroesophageal reflux disease) CONTROLLED Hiatal hernia History of ovarian cyst Hyperlipidemia IBS (irritable bowel syndrome) Osteoarthritis Temporomandibular joint disorder Surgical History Hx of cholecystectomy History of partial hysterectomy H/O arthroscopic knee surgery History of arthroscopic knee surgery B/L History of bladder repair surgery REPAIR 2/2 INJURY WITH HYSTER, + MESH X2 History of cholecystectomy History of colonoscopy History of esophagogastroduodenoscopy (EGD) History of open reduction and internal fixation (ORIF) procedure S/P RIGHT FIBULA ORIF History of ovarian cystectomy History of surgery COLPORRHAPHY History of tooth extraction Family History Mother Parkinsons disease Father Prostate cancer Grandmother (Maternal) Coronary heart disease Grandfather (Maternal) Coronary heart disease Social History Preferred Language: Icelandic Communication Ability: Effective 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 Beliefs That Will Affect Care: None marital status: Single Current Living Situation: Alone current occupational status: employed Feels Safe at Home: Yes Safety Concerns: Feels Safe At This Time Smoking Status: Former smoker Tobacco Type: cigarettes Cigarettes Per Day: QUIT 11/2018; HX 1/2 PPD 30+ YEARS Do You Dip or Chew Tobacco: No Second Hand Exposure: Yes ( A CHILD) Tobacco Cessation Education Requested by Patient: No Hx Alcohol Use: No Hx Substance Use: No Review of Systems Review of Systems: Unobtainable due to cognitive status Physical Exam Constitutional: WD/WN, vitals as above no acute distress Eyes: PERRL, conjunctivae normal, anicteric sclerae ENMT: external ear and nose normal, oropharynx normal Neck: trachea midline, no thyromegaly Respiratory: normal respiratory effort, lungs clear to auscultation Cardiovascular: Rate/Rhythm: regular rate Heart Sounds: no gallop, no murmur and no cardiac rub Vessels: no JVD Extremities: normal capillary refill; no calf tenderness and no edema Gastrointestinal (Abdomen): normal bowel sounds, soft, nontender, no hepatosplenomegaly Musculoskeletal: Head/Neck/Chest: neck supple Extremities: strength 5/5 throughout; no cyanosis and no clubbing recent right knee surgery; wound stapled, no erythema or drainage Skin: no rashes, warm and dry Neurologic: PERRL, EOMI no facial palsy no dysarthria or aphasia patellar DTR's 2/2 bilat Psychiatric: Orientation: alert; + not oriented x 3 Lymphatic: no cervical lymphadenopathy Results & Data Vital Signs (Past 12 Hours) Vital Signs Temp Pulse Pulse Resp BP BP Pulse Ox 05/25/19 01:00 103 H 19 128/100 05/25/19 00:30 95 H 17 129/84 05/25/19 00:00 107 H 22 112/82 92 05/24/19 23:31 118 H 18 119/93 05/24/19 23:30 105 H 18 119/93 93 05/24/19 22:30 97 H 17 05/24/19 22:00 116 H 20 05/24/19 21:30 115 H 26 H 05/24/19 21:27 118 H 16 97 05/24/19 21:22 37.2 C 118 H 20 132/78 94 05/24/19 21:15 123 H 24 132/78 95 Laboratory Results Laboratory Results - last 24 hr 05/24/19 05/24/19 05/24/19 21:24 21:24 21:24 WBC 8.59 RBC 4.05 L Hgb 12.8 Hct 37.8 MCV 93.3 MCH 31.6 MCHC 33.9 RDW Std Deviation 45.7 RDW Coeff of Ace 13.3 Plt Count 243 MPV 9.5 Immature Gran % (Auto) 0.7 Neut % (Auto) 73.7 Lymph % (Auto) 14.8 [place] % (Auto) 6.2 Eos % (Auto) 4.1 Baso % (Auto) 0.5 Immature Gran # (Auto) 0.06 H Neut # (Auto) 6.34 Lymph # (Auto) 1.27 [place] # (Auto) 0.53 Eos # (Auto) 0.35 Baso # (Auto) 0.04 Sodium 138 Potassium 3.9 Chloride 101 Carbon Dioxide 32 Anion Gap 5.0 BUN 6 L Creatinine 0.86 Est Cr Clr Drug Dosing 90.1 Est GFR ( Amer) 90.0 Est GFR (Non-Af Amer) 77.7 BUN/Creatinine Ratio 6.8 L Glucose 116 H Calcium 9.9 Total Bilirubin 0.7 AST 34 ALT 45 Alkaline Phosphatase 119 H Total Protein 7.2 Albumin 3.2 L Globulin 4.0 Albumin/Globulin Ratio 0.8 L Salicylates < 1.7 L Urine Opiates Screen Ur Methadone, Qual Acetaminophen < 2 L Urine Barbiturates Valproic Acid 61 Ur Phencyclidine (PCP) U Amphetamin/Meth Scrn MDMA (Ecstasy) Screen U MDMA (Ecstasy), Quant U Benzodiazepines Scrn Ur Cocaine Metabolite U Marijuana (THC) Screen Ethyl Alcohol mg/dL 05/24/19 05/24/19 05/24/19 23:27 23:30 23:30 WBC RBC Hgb Hct MCV MCH MCHC RDW Std Deviation RDW Coeff of Ace Plt Count MPV Immature Gran % (Auto) Neut % (Auto) Lymph % (Auto) [place] % (Auto) Eos % (Auto) Baso % (Auto) Immature Gran # (Auto) Neut # (Auto) Lymph # (Auto) [place] # (Auto) Eos # (Auto) Baso # (Auto) Sodium Potassium Chloride Carbon Dioxide Anion Gap BUN Creatinine Est Cr Clr Drug Dosing Est GFR ( Amer) Est GFR (Non-Af Amer) BUN/Creatinine Ratio Glucose Calcium Total Bilirubin AST ALT Alkaline Phosphatase Total Protein Albumin Globulin Albumin/Globulin Ratio Salicylates Urine Opiates Screen Neg Ur Methadone, Qual Neg Acetaminophen Urine Barbiturates Neg Valproic Acid Ur Phencyclidine (PCP) Neg U Amphetamin/Meth Scrn Neg MDMA (Ecstasy) Screen Pos H U MDMA (Ecstasy), Quant Pending U Benzodiazepines Scrn Neg Ur Cocaine Metabolite Neg U Marijuana (THC) Screen Neg Ethyl Alcohol mg/dL < 3.0 05/25/19 05/25/19 05/25/19 07:07 07:07 07:07 WBC 6.47 RBC 3.74 L Hgb 11.3 L Hct 34.5 L MCV 92.2 MCH 30.2 MCHC 32.8 RDW Std Deviation 45.0 RDW Coeff of Ace 13.5 Plt Count 216 MPV 9.2 Immature Gran % (Auto) Neut % (Auto) Lymph % (Auto) [place] % (Auto) Eos % (Auto) Baso % (Auto) Immature Gran # (Auto) Neut # (Auto) Lymph # (Auto) [place] # (Auto) Eos # (Auto) Baso # (Auto) Sodium 141 Potassium 4.2 Chloride 109 H Carbon Dioxide 30 Anion Gap 2.0 L BUN 6 L Creatinine 0.70 Est Cr Clr Drug Dosing 115.7 Est GFR ( Amer) 115.5 Est GFR (Non-Af Amer) 99.6 BUN/Creatinine Ratio 8.9 L Glucose 87 Calcium 9.0 Total Bilirubin 0.6 AST 27 ALT 37 Alkaline Phosphatase 103 Total Protein 6.1 L Albumin 2.7 L Globulin 3.4 Albumin/Globulin Ratio 0.8 L Salicylates Urine Opiates Screen Ur Methadone, Qual Acetaminophen Urine Barbiturates Valproic Acid 33 L Ur Phencyclidine (PCP) U Amphetamin/Meth Scrn MDMA (Ecstasy) Screen U MDMA (Ecstasy), Quant U Benzodiazepines Scrn Ur Cocaine Metabolite U Marijuana (THC) Screen Ethyl Alcohol mg/dL ECG Additional Comments: EKG performed at 2246 reviewed and demonstrated NSR at 97 / min, QRS 88 msec, QTc 457 msec, no acute changes. (1) Altered mental status Altered mental status type: unspecified Qualified Code(s): R41.82 - Altered mental status, unspecified (2) Polysubstance overdose Encounter type: initial encounter Injury intent: undetermined intent Qualified Code(s): T50.904A - Poisoning by unspecified drugs, medicaments and biological substances, undetermined, initial encounter
[2019-05-25] MEDS: LACTATED RINGER'S 1,000 ML IV SCH ×3 (05:20→22:00)
[2019-05-25 07:27] LABS: Hematocrit (blood only) 34.5 % (37-47); Hemoglobin 11.3 g/dL (12.0-16.0); Mean Corpuscular Hgb Conc 32.8 g/dL (32-36); Mean Corpuscular Volume 92.2 fL (80-100); Mean Platelet Volume 9.2 fL (7.4-10.4); Platelet Count 216 K/uL (130-400); RDW Coefficient of Variation 13.5 % (11.5-14.5); Red Blood Count 3.74 M/uL (4.2-5.4); White Blood Count 6.47 K/uL (4.8-10.8)
[2019-05-25 08:01] LABS: Albumin Level 2.7 gm/dl (3.4-5.0); BUN Creatinine Ratio 8.9 (10-20); Creatinine Clr Calc Pharmacy 115.7 ml/min; Est GFR (African American) 115.5; Est GFR (Non-African American) 99.6; Potassium 4.2 mmol/L (3.5-5.1)
[2019-05-25 08:04] LABS: Albumin Globulin Ratio 0.8 (0.9-2); Bilirubin,Total 0.6 mg/dl (0.2-1); Globulin 3.4 gm/dl (2.5-4.0); Total Protein 6.1 gm/dl (6.4-8.2)
[2019-05-25] MEDS: KETOROLAC TROMETHAMINE 15 MG/ML VIAL IV PRN ×2 (12:13→21:58)
[2019-05-25] MEDS: PANTOprazole 40 MG TAB PO SCH (13:21)
[2019-05-25] MEDS: DICYCLOMINE HCL 20 MG TAB PO SCH ×3 (13:21→21:56)
[2019-05-25] MEDS: BuPROPion XL 300 MG TABCR PO SCH (13:21)
[2019-05-25] MEDS: DIVALPROEX DELAY RELEASE 500 MG TAB PO SCH ×2 (13:21→21:57)
[2019-05-25] MEDS: ARIPiprazole 15 MG TAB PO SCH (13:21)
[2019-05-25] MEDS: TAMSULOSIN HCL 0.4 MG CAP PO SCH (13:21)
[2019-05-25] MEDS ORDERED: POLYETHYLENE (MIRALAX) 17 GM PACK PO PRN (13:31)
[2019-05-25] MEDS: DOCUSATE SODIUM 100 MG CAP PO SCH ×2 (14:23→21:58)
--- NOTE | 2019-05-25 14:36 | Hospitalist Progress Note ---
Date of Service May 25, 2019 Assessment & Plan (1) Altered mental status: Likely due to Polysubstance overdose. No focal neurological deficits Urine Tox: + MDMA likely due to Bupropion Mental status back to baseline (2) Polysubstance overdose: Ingested a combination of her prescription medications: Patient denies any intentional drug overdose Conservative management as per Poison Control. Monitor for arrhythmias, Seizure precautions. Valproic acid level: 33 Consulted Psychiatry (3) Bipolar disorder: Continue home meds Consulted Psychiatry (4) Status post total right knee replacement: Right knee pain and mild swelling Orthopedics consulted Resume aspirin if OK with Ortho Avoid narcotic analgesics Toradol PRN (5) DVT prophylaxis: SCDs Will resume aspirin as able Ambulate. (6) Discharge planning issues: Expect to discharge home when stable Primary care follow-up with Dr. Dotson. Orthopedics follow-up with Dr. Robertson. Subjective Patient is seen and examined at bedside Complains of knee pain at surgical site Denies any chest pain, shortness of breath, dizziness, nausea, abdominal pain Denies any suicidal thoughts, intentional drug overdose Discussed with mental health today No family at bedside Offers no other complaints Review of Systems Review of Systems: All systems reviewed & are unremarkable except as noted in HPI & below Physical Exam Physical Exam: Physical Exam: Vitals signs as noted above General Appearance:Moderately built and nourished, no apparent distress Head: normocephalic, Atraumatic Eyes: normal inspection, EOMI Neck: supple, Trachea midline Respiratory/Chest: Normal breath sounds, CTA Cardiovascular: S1, S2, No murmur Abdomen/GI:Soft, Non tender, Bowel sounds present Extremities/Musculoskelatal:normal inspection, R knee surgery, mild tender, +swelling Neurologic/Psych:AAOX3, grossly no focal neurological deficits Skin: normal color, warm Results & Data Vital Signs (Past 12 Hours) Vital Signs Temp Pulse Pulse Resp BP Pulse Ox 05/25/19 11:56 37.0 C 95 H 20 143/85 H 98 05/25/19 08:00 80 05/25/19 07:38 36.4 C L 77 18 124/80 97 05/25/19 02:40 36.9 C 84 16 142/88 H 92 Laboratory Results Short CBC 05/24/19 05/25/19 Range/Units 21:24 07:07 WBC 8.59 6.47 (4.8-10.8) K/uL Hgb 12.8 11.3 L (12.0-16.0) g/dL Hct 37.8 34.5 L (37-47) % Plt Count 243 216 (130-400) K/uL BMP 05/24/19 05/25/19 21:24 07:07 Sodium 138 141 Potassium 3.9 4.2 Chloride 101 109 H Carbon Dioxide 32 30 BUN 6 L 6 L Creatinine 0.86 0.70 Glucose 116 H 87 Calcium 9.9 9.0 Liver Function 05/24/19 05/25/19 Range/Units 21:24 07:07 Total Bilirubin 0.7 0.6 (0.2-1) mg/dl AST 34 27 (15-37) U/L ALT 45 37 (12-78) U/L Alkaline Phosphatase 119 H 103 (45-117) U/L Albumin 3.2 L 2.7 L (3.4-5.0) gm/dl (1) Altered mental status Altered mental status type: unspecified Qualified Code(s): R41.82 - Altered mental status, unspecified (2) Polysubstance overdose Encounter type: initial encounter Injury intent: undetermined intent Qualified Code(s): T50.904A - Poisoning by unspecified drugs, medicaments and biological substances, undetermined, initial encounter
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
[2019-05-25] MEDS: ACETAMINOPHEN 1,000 MG/100 ML VIAL IV PRN (17:15)
[2019-05-25] MEDS ORDERED: TRAZODONE HCL 50 MG TAB PO SCH (21:00)
[2019-05-25] MEDS ORDERED: DOCUSATE SODIUM 100 MG CAP PO SCH (21:00)
[2019-05-26] MEDS: ACETAMINOPHEN 1,000 MG/100 ML VIAL IV PRN (02:21)
[2019-05-26] MEDS: LACTATED RINGER'S 1,000 ML IV SCH (05:32)
[2019-05-26 06:36] LABS: Hematocrit (blood only) 32.6 % (37-47); Hemoglobin 10.8 g/dL (12.0-16.0); Mean Corpuscular Hgb Conc 33.1 g/dL (32-36); Mean Corpuscular Volume 92.4 fL (80-100); Platelet Count 205 K/uL (130-400); RDW Coefficient of Variation 13.6 % (11.5-14.5); RDW Standard Deviation 45.3 fL (36.4-46.3); Red Blood Count 3.53 M/uL (4.2-5.4); White Blood Count 5.48 K/uL (4.8-10.8)
[2019-05-26 07:18] LABS: BUN Creatinine Ratio 16.8 (10-20); Calcium 8.7 mg/dl (8.5-10.1); Creatinine Clr Calc Pharmacy 122.8 ml/min; Est GFR (African American) 117.1; Est GFR (Non-African American) 101.1; Potassium 4.1 mmol/L (3.5-5.1)
[2019-05-26] MEDS: KETOROLAC TROMETHAMINE 15 MG/ML VIAL IV PRN ×2 (08:44→15:52)
[2019-05-26] MEDS: DIVALPROEX DELAY RELEASE 500 MG TAB PO SCH (08:47)
[2019-05-26] MEDS: DOCUSATE SODIUM 100 MG CAP PO SCH (08:47)
[2019-05-26] MEDS: PANTOprazole 40 MG TAB PO SCH (08:47)
[2019-05-26] MEDS: TAMSULOSIN HCL 0.4 MG CAP PO SCH (08:47)
[2019-05-26] MEDS: ARIPiprazole 15 MG TAB PO SCH (08:47)
[2019-05-26] MEDS: DICYCLOMINE HCL 20 MG TAB PO SCH ×2 (08:47→12:12)
[2019-05-26] MEDS: BuPROPion XL 300 MG TABCR PO SCH (08:47)
[2019-05-26] MEDS ORDERED: ATORVASTATIN 10 MG TAB PO SCH (09:00)
[2019-05-26] MEDS ORDERED: ASPIRIN 81 MG ECTAB PO SCH (09:15)
[2019-05-26] MEDS ORDERED: OXYCODONE/ACETAMINOPHEN 5mg/325mg TAB PO PRN (11:19)
--- NOTE | 2019-05-26 13:23 | Ultrasound Report ---
RIGHT LOWER EXTREMITY VENOUS DOPPLER CLINICAL HISTORY: Right lower extremity edema. COMPARISON STUDY: No previous studies for comparison. TECHNIQUE: Sonography of the deep venous system of the right lower extremity was performed. Compress ion and augmentation were evaluated. FINDINGS: The right common femoral, superficial femoral and popliteal veins were compressible. Augme ntation was normal. Flow was shown within the deep calf vessels. IMPRESSION: No evidence of deep venous thrombus within the right lower extremity. Electronically signed by: Damon English M.D. 05/26/2019 1:22 PM
--- NOTE | 2019-05-26 15:37 | Hospitalist Progress Note ---
Date of Service May 26, 2019 Assessment & Plan (1) Altered mental status: Likely due to Polysubstance overdose. No focal neurological deficits Urine Tox: + MDMA likely due to Bupropion Mental status back to baseline Denies any intentional overdose (2) Polysubstance overdose: Ingested a combination of her prescription medications: Patient denies any intentional drug overdose Conservative management as per Poison Control. Monitor for arrhythmias, Seizure precautions. Valproic acid level: 33 Appreciate Psychiatry Input Denies suicidal/homicidal ideation Does not meet criteria to suggest an inpatient psychiatric admission as per psychiatry Needs follow-up with psychiatry as outpatient (3) Bipolar disorder: Continue home meds Psychiatry on board (4) Status post total right knee replacement: Right knee pain and mild swelling Venous Doppler: No DVT Continue aspirin 81 mg BID as per Ortho Pain control (5) DVT prophylaxis: SCDs Also on aspirin 81 mg BID Encourage to Ambulate. (6) Discharge planning issues: Primary care follow-up with Dr. Dotson. Orthopedics follow-up with Dr. Robertson. Subjective Patient is seen and examined at bedside knee pain at surgical site is controlled Denies any chest pain, SOB, dizziness, nausea, abdominal pain Denies any suicidal thoughts, intentional drug overdose Appreciate Input from mental health No family at bedside Offers no other complaints Review of Systems Review of Systems: All systems reviewed & are unremarkable except as noted in HPI & below Physical Exam Physical Exam: Physical Exam: Vitals signs as noted above General Appearance:Moderately built and nourished, no apparent distress Head: normocephalic, Atraumatic Eyes: normal inspection, EOMI Neck: supple, Trachea midline Respiratory/Chest: Normal breath sounds, CTA Cardiovascular: S1, S2, No murmur Abdomen/GI:Soft, Non tender, Bowel sounds present Extremities/Musculoskelatal:normal inspection, R knee surgery, mild tender, +swelling Neurologic/Psych:AAOX3, grossly no focal neurological deficits Skin: normal color, warm Results & Data Vital Signs (Past 12 Hours) Vital Signs Temp Pulse Pulse Resp BP Pulse Ox 05/26/19 08:00 78 05/26/19 07:54 36.8 C 66 18 129/76 95 05/26/19 04:19 36.5 C 95 H 18 137/88 96 Laboratory Results Short CBC 05/26/19 Range/Units 06:15 WBC 5.48 (4.8-10.8) K/uL Hgb 10.8 L (12.0-16.0) g/dL Hct 32.6 L (37-47) % Plt Count 205 (130-400) K/uL [facility] 05/26/19 06:15 Sodium 142 Potassium 4.1 Chloride 110 H Carbon Dioxide 29 BUN 11 D Creatinine 0.67 Glucose 93 Calcium 8.7 (1) Altered mental status Altered mental status type: unspecified Qualified Code(s): R41.82 - Altered mental status, unspecified (2) Polysubstance overdose Encounter type: initial encounter Injury intent: undetermined intent Qualified Code(s): T50.904A - Poisoning by unspecified drugs, medicaments and biological substances, undetermined, initial encounter
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
[2019-05-26] MEDS ORDERED: OXYCODONE/ACETAMINOPHEN 5mg/325mg TAB PO ONE (16:30)
== END 2019-05-26 18:16 | disposition home health service (06) ==
LOC: ED 21:10 → 2S 21:10

== ENCOUNTER 2019-12-09 14:26 | Inpatient (IN) ==
[2019-12-09] MEDS ORDERED: ONDANSETRON INJ 2 MG/ML 2 ML VIAL IV STA (14:57)
[2019-12-09] MEDS ORDERED: FAMOTIDINE 20MG IV PUSH 20 MG/5 ML SYR IV STA (14:57)
[2019-12-09] MEDS ORDERED: SODIUM CHLORIDE 0.9% 1000ML 1,000 ML IV ONE (14:57)
[2019-12-09] MEDS ORDERED: DiphenhydrAMINE HCL 50 MG/ML VIAL IV STA ×2 (15:05→16:14)
[2019-12-09] MEDS ORDERED: ALPRAZolam 0.5 MG TABLET PO STA (15:05)
[2019-12-09] MEDS ORDERED: ALBUTEROL 0.083% NEBU SOLN 3 ML VIAL INH STA (16:14)
[2019-12-09] MEDS ORDERED: LORazepam 1 MG/2 ML VIAL IV STA (16:29)
[2019-12-09 16:39] LABS: Appearance Urine Slightly Cloudy (Clear); Color Urine Orange
[2019-12-09 16:41] LABS: Specific Gravity Urine 1.007 (1.000-1.060)
[2019-12-09 16:43] LABS: Protein Urine Negative (Negative); Sulfosalicylic Acid Urine Negative (Negative)
[2019-12-09 16:45] LABS: Bacteria Urine 1+ (Negative); RBC Urine 0-4 /hpf (0-4)
[2019-12-09 16:46] LABS: Hyaline Casts Urine 0-5 /lpf (0-5)
--- NOTE | 2019-12-09 16:48 | Emergency Department Note ---
ED Visit Note I saw and examined this patient and discussed with Dr. Hernandez who saw her separately. Please see his note for any medical decision making. . Resident Activity Tracking Resident Involvement: Resident Care Provided Care Provided: Adult ED : Anaphylactic reaction Qualifiers: Encounter type: initial encounter Qualified Code(s): T78.2XXA - Anaphylactic shock, unspecified, initial encounter
[2019-12-09] MEDS ORDERED: EPINEPHrine INJ 1 MG/ML AMP IM STA (16:51)
[2019-12-09] MEDS ORDERED: methylPREDNISolone 125 MG/2 ML VIAL IV STA (17:31)
[2019-12-09] MEDS ORDERED: cefTRIAXone SODIUM 1000MG/50ML D5W IV ONE (18:16)
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
[2019-12-09] MEDS ORDERED: PHENAZOPYRIDINE HCL 200 MG TAB PO PRN (18:57)
[2019-12-09] MEDS: SODIUM CHLORIDE 0.9% 1000ML 1,000 ML IV SCH (19:01)
[2019-12-09 19:21] LABS: Basophils # (auto) 0.01 K/uL (0-0.2); Basophils % (auto) 0.1 %; Hematocrit (blood only) 42.4 % (37-47); Hemoglobin 14.3 g/dL (12.0-16.0); Immature Granulocytes # (auto) 0.04 K/uL (0.00-0.02); Immature Granulocytes % (auto) 0.3 %; Lymphocytes # (auto) 0.54 K/uL (1.2-3.4); Lymphocytes % (auto) 3.4 %; Mean Corpuscular Hgb Conc 33.7 g/dL (32-36); Mean Corpuscular Volume 89.1 fL (80-100); Mean Platelet Volume 9.5 fL (7.4-10.4); Monocytes # (auto) 0.13 K/uL (0.11-0.59); Monocytes % (auto) 0.8 %; Neutrophils # (auto) 15.25 K/uL (1.4-6.5); Neutrophils % (auto) 95.4 %; Platelet Count 252 K/uL (130-400); RDW Coefficient of Variation 13.3 % (11.5-14.5); RDW Standard Deviation 43.8 fL (36.4-46.3); Red Blood Count 4.76 M/uL (4.2-5.4); White Blood Count 15.97 K/uL (4.8-10.8)
[2019-12-09 19:39] LABS: BUN Creatinine Ratio 16.5 (10-20); Calcium 9.1 mg/dl (8.5-10.1); Creatinine Clr Calc Pharmacy 85.5 ml/min; Est GFR (Non-African American) 71.6; Magnesium 1.9 mg/dl (1.8-2.4); Potassium 4.1 mmol/L (3.5-5.1)
[2019-12-09] MEDS: DiphenhydrAMINE HCL 50 MG/ML VIAL IV SCH (19:46)
--- NOTE | 2019-12-09 20:33 | Emergency Department Note ---
Entered by Annabel Brian acting as a scribe for Stanford Hernandez M.D. 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 The patient states that she was recently diagnosed with UTI and prescribed with Bactrim and AZO at Urgent Care. She states that she has taken those medications in the past without any issues. She reports that she took her medication today and 20 minutes after she developed lightheadedness, shortness of breath, tongue swelling, throat swelling, nausea, and vomiting. She denies any fever or chills. She denies any chest pain. She denies any new foods or medications. The patient reports that s he came here through EMS and received Epinephrine prior to arrival. Home Medications Home Medications Medication Instructions Recorded Confirmed Type atorvastatin 10 mg PO QAM 02/25/19 12/09/19 History bupropion HCl 300 mg PO QAM 02/25/19 12/09/19 History divalproex 500 mg PO BID 02/25/19 12/09/19 History omeprazole 20 mg PO QAM 02/25/19 12/09/19 History trazodone 150 mg PO HS 02/25/19 12/09/19 History dicyclomine 20 mg PO QID 04/12/19 12/09/19 History alprazolam [Xanax] 0.5 mg PO TID PRN 12/09/19 12/09/19 History phenazopyridine 200 mg PO TID PRN 12/09/19 12/09/19 History sulfamethoxazole-trimethoprim 1 tab PO BID 12/09/19 12/09/19 History [Bactrim DS] Allergies Allergy/AdvReac Type Severity Reaction Status Date / Time buprenorphine [From Subutex] Allergy Severe Anaphylaxis Verified 12/09/19 16:16 latex Allergy Severe ANAPHYLAXIS Verified 12/09/19 16:16 sulfamethoxazole Allergy Severe Anaphylaxis Verified 12/09/19 18:27 [From Bactrim] trimethoprim [From Bactrim] Allergy Severe Anaphylaxis Verified 12/09/19 18:27 prochlorperazine AdvReac Intermediate dystonic Verified 12/09/19 16:16 [From Compazine] reaction Past Med/Surg History Medical History Anxiety Bipolar disorder Chronic back pain Depression Encounter for pre-operative examination GERD (gastroesophageal reflux disease) CONTROLLED Hiatal hernia History of ovarian cyst Hyperlipidemia IBS (irritable bowel syndrome) Migraines Osteoarthritis Post-traumatic osteoarthritis of right knee Right knee injury (Acute) Temporomandibular joint disorder Surgical History H/O arthroscopic knee surgery History of arthroscopic knee surgery B/L History of bladder repair surgery REPAIR 2/2 INJURY WITH HYSTER, + MESH X2 History of cholecystectomy History of colonoscopy History of esophagogastroduodenoscopy (EGD) History of open reduction and internal fixation (ORIF) procedure S/P RIGHT FIBULA ORIF History of ovarian cystectomy History of partial hysterectomy History of surgery COLPORRHAPHY History of tooth extraction Hx of cholecystectomy Family History Mother Parkinsons disease Father Prostate cancer Grandmother (Maternal) Coronary heart disease Grandfather (Maternal) Coronary heart disease Social History Preferred Language: American Communication Ability: Effective 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 and A total of 10 systems reviewed and were otherwise negative Physical Exam Vital Signs Vital Signs - 24 hr 12/09/19 14:34 12/09/19 14:36 12/09/19 14:42 Temperature 36.3 C L Temperature Source Oral Pulse Rate 91 H 91 H 92 H Pulse Rate [Right Finger] Pulse Rate from SpO2 Sensor 91 H 91 H Respiratory Rate 18 22 20 Respiratory Effort / Characteristics Non-Labored Spontaneous Respiratory Depth Normal Respiratory Pattern Regular Blood Pressure 153/98 H 153/98 H Blood Pressure Mean 112 116 Pulse Oximetry 98 97 97 Oxygen Delivery Method Room Air Oxygen Flow Rate Sepsis Recent Fever Within 48 Hours No Sepsis Action Taken by Nursing No Action Required Oxygen Flow Rate - Titration Pulse Oximetry Post Tiitration 12/09/19 14:45 12/09/19 14:46 12/09/19 15:00 Temperature Temperature Source Pulse Rate 92 H 91 H 90 Pulse Rate [Right Finger] Pulse Rate from SpO2 Sensor 92 H 91 H 90 Respiratory Rate 26 H 25 H 22 Respiratory Effort / Characteristics Respiratory Depth Respiratory Pattern Blood Pressure 141/84 H 149/100 H Blood Pressure Mean 93 122 Pulse Oximetry 96 96 96 Oxygen Delivery Method Oxygen Flow Rate Sepsis Recent Fever Within 48 Hours Sepsis Action Taken by Nursing Oxygen Flow Rate - Titration Pulse Oximetry Post Tiitration 12/09/19 15:01 12/09/19 15:15 12/09/19 15:16 Temperature Temperature Source Pulse Rate 90 88 88 Pulse Rate [Right Finger] Pulse Rate from SpO2 Sensor 90 89 87 Respiratory Rate 22 20 28 H Respiratory Effort / Characteristics Respiratory Depth Respiratory Pattern Blood Pressure 132/86 Blood Pressure Mean 95 Pulse Oximetry 97 92 93 Oxygen Delivery Method Oxygen Flow Rate Sepsis Recent Fever Within 48 Hours Sepsis Action Taken by Nursing Oxygen Flow Rate - Titration Pulse Oximetry Post Tiitration 12/09/19 15:19 12/09/19 15:30 12/09/19 15:31 Temperature Temperature Source Pulse Rate 88 89 87 Pulse Rate [Right Finger] Pulse Rate from SpO2 Sensor 88 91 H 84 Respiratory Rate 27 H 29 H 18 Respiratory Effort / Characteristics Respiratory Depth Respiratory Pattern Blood Pressure 132/86 147/81 H Blood Pressure Mean 95 87 Pulse Oximetry 95 98 97 Oxygen Delivery Method Oxygen Flow Rate Sepsis Recent Fever Within 48 Hours Sepsis Action Taken by Nursing Oxygen Flow Rate - Titration Pulse Oximetry Post Tiitration 12/09/19 15:45 12/09/19 16:00 12/09/19 16:17 Temperature Temperature Source Pulse Rate 85 86 86 Pulse Rate [Right Finger] Pulse Rate from SpO2 Sensor 85 87 Respiratory Rate 20 21 22 Respiratory Effort / Characteristics Respiratory Depth Respiratory Pattern Blood Pressure 140/99 147/94 H 162/99 H Blood Pressure Mean 109 103 118 Pulse Oximetry 94 95 Oxygen Delivery Method Oxygen Flow Rate Sepsis Recent Fever Within 48 Hours Sepsis Action Taken by Nursing Oxygen Flow Rate - Titration Pulse Oximetry Post Tiitration 12/09/19 16:30 12/09/19 16:31 12/09/19 16:45 Temperature Temperature Source Pulse Rate 76 84 Pulse Rate [Right Finger] 79 Pulse Rate from SpO2 Sensor 75 84 Respiratory Rate 18 16 20 Respiratory Effort / Characteristics Non-Labored Spontaneous Respiratory Depth Respiratory Pattern Blood Pressure 130/99 131/93 Blood Pressure Mean 105 97 Pulse Oximetry 92 94 90 Oxygen Delivery Method Room Air Room Air Room Air Oxygen Flow Rate Sepsis Recent Fever Within 48 Hours Sepsis Action Taken by Nursing Oxygen Flow Rate - Titration Pulse Oximetry Post Tiitration 12/09/19 17:00 12/09/19 17:06 12/09/19 17:30 Temperature Temperature Source Pulse Rate 92 H 93 H Pulse Rate [Right Finger] Pulse Rate from SpO2 Sensor 92 H 93 H Respiratory Rate 21 18 Respiratory Effort / Characteristics Respiratory Depth Respiratory Pattern Blood Pressure 120/93 137/85 Blood Pressure Mean 101 97 Pulse Oximetry 90 90 95 Oxygen Delivery Method Room Air Nasal Cannula Oxygen Flow Rate 0 2 Sepsis Recent Fever Within 48 Hours Sepsis Action Taken by Nursing Oxygen Flow Rate - Titration 2 Pulse Oximetry Post Tiitration 94 12/09/19 17:45 Temperature Temperature Source Pulse Rate 100 H Pulse Rate [Right Finger] Pulse Rate from SpO2 Sensor 100 H Respiratory Rate 20 Respiratory Effort / Characteristics Respiratory Depth Respiratory Pattern Blood Pressure 128/86 Blood Pressure Mean 96 Pulse Oximetry 96 Oxygen Delivery Method Nasal Cannula Oxygen Flow Rate 2 Sepsis Recent Fever Within 48 Hours Sepsis Action Taken by Nursing Oxygen Flow Rate - Titration Pulse Oximetry Post Tiitration GENERAL: Awake, alert, tremulous HENT: Normocephalic, atraumatic. Mild pharyngeal swelling EYES: Normal conjunctiva. Sclera non-icteric. RESPIRATORY: Clear to auscultation. No wheezes. Normal respiratory effort. CARDIAC: Tachycardic rate. Normal rhythm. Extremities warm and well perfused. GI: Soft, non-distended. No tenderness to palpation. MUSCULOSKELETAL: Atraumatic. Chest examination reveals no tenderness. LOWER EXTREMITIES: Calves are equal size bilaterally and non-tender. No edema NEURO: Normal sensorium. No sensory or motor deficits noted. No facial droop. SKIN: Warm and dry. No jaundice noted. Diffuse periodic erythema in extremities. Course Course 1450: The patient was seen and evaluated by the Resident Physician, Dr. Lupe Noel, at this time. History and physical were discussed with me. 1649: I reevaluated the patient and updated her on her results. 1655: I reviewed the patient's case with Micki Jorge. Dr. Sneha Jorge Hospitalist will evaluate the patient for further management. Administered Medications Diphenhydramine HCl (Benadryl) 25 mg IV Q6H SAMIA Stop: 12/10/19 13:31 Last Admin: 12/09/19 19:46 Dose: 25 mg Documented by: [id number] Sodium Chloride (Nss 1000ml) 1,000 mls @ 125 mls/hr IV .Q8H SAMIA Stop: 12/10/19 18:59 Last Admin: 12/09/19 19:01 Dose: 125 mls/hr Documented by: [id number] Discontinued Medications Albuterol (Ventolin 0.083% 2.5mg/3ml) 2.5 mg INH NOW STA Stop: 12/09/19 16:15 Last Admin: 12/09/19 16:29 Dose: 2.5 mg Documented by: [id number] Alprazolam (Xanax) 0.5 mg PO NOW STA Stop: 12/09/19 15:06 Last Admin: 12/09/19 15:16 Dose: 0.5 mg Documented by: [id number] Ceftriaxone Sodium (Rocephin) Confirm Administered Dose 1,000 mg IV .[facility] Stop: 12/09/19 18:17 Last Admin: 12/09/19 18:19 Dose: 1,000 mg Documented by: [id number] Diphenhydramine HCl (Benadryl) 25 mg IV NOW STA Stop: 12/09/19 15:06 Last Admin: 12/09/19 15:11 Dose: 25 mg Documented by: [id number] Diphenhydramine HCl (Benadryl) 25 mg IV NOW STA Stop: 12/09/19 16:15 Last Admin: 12/09/19 16:17 Dose: 25 mg Documented by: [id number] Epinephrine HCl (Epinephrine) 0.3 mg IM NOW STA Stop: 12/09/19 16:52 Last Admin: 12/09/19 16:59 Dose: 0.3 mg Documented by: [id number] Sodium Chloride (Nss 1000ml) 1,000 mls @ 999 mls/hr IV .Q1H1M ONE Stop: 12/09/19 15:57 Last Infusion: 12/09/19 16:17 Dose: 0 mls/hr Documented by: [id number] Admin: 12/09/19 15:10 Dose: 999 mls/hr Documented by: [id number] Famotidine (Pepcid 20mg Iv Push) 20 mg in 5 mls @ 2.5 mls/min IV NOW STA Stop: 12/09/19 14:58 Last Admin: 12/09/19 15:15 Dose: 2.5 mls/min Documented by: [id number] Lorazepam (Ativan) 1 mg in 2 mls @ 2 mls/min IV NOW STA Stop: 12/09/19 16:30 Last Admin: 12/09/19 16:38 Dose: 2 mls/min Documented by: [id number] Methylprednisolone (Solumedrol) 125 mg IV NOW STA Stop: 12/09/19 17:32 Last Admin: 12/09/19 18:05 Dose: Not Given Documented by: [id number] Ondansetron HCl (Zofran) 4 mg IV NOW STA Stop: 12/09/19 14:58 Last Admin: 12/09/19 15:13 Dose: 4 mg Documented by: [id number] Critical Care Time Critical Care Time: Yes Total Critical Care Time: 35 I have personally spent 35 minutes of critical care time in the direct managemen t of this patient. This includes bedside care, interpretation of diagnostic studies, and testing, discussion with consultants, patient, and family members, and other required patient management activities. This 35 minutes is in excess of all separately billable procedures. Medical Decision Making Differential Diagnosis Differential diagnosis: Etiologies such as allergic reaction, anaphylaxis, urticaria, Sharp-Thomas syndrome, toxic epidermal necrolysis, erythema multiforme, cellulitis, as well as others were entertained. Medical Records Attestation: I reviewed the patient's medical records. Home Medications Current Medication List: was personally reviewed by me Laboratory Data Attestation: I reviewed the patient's lab results. Result diagrams: 12/09/19 18:59 12/09/19 18:59 Lab Results 12/09/19 Range/Units 16:20 Urine Color [place] Urine Appearance Slightly Cloudy A (Clear) Urine pH (4.5-7.5) Ur Specific [place] 1.007 (1.000-1.060) Urine Protein Negative (Negative) Urine Glucose (UA) (Negative) Urine Ketones (Negative) Urine Blood (Negative) Urine Nitrite (Negative) Urine Bilirubin (Negative) Urine Urobilinogen (Negative) Ur Leukocyte Esterase (Negative) Urine RBC 0-4 (0-4) /hpf Urine WBC 10-30 H (0-5) /hpf Ur Epithelial Cells 10-20 H (0-5) /lpf Urine Bacteria 1+ H (Negative) Hyaline Casts 0-5 (0-5) /lpf Blood Pressure Blood Pressure Findings: Elevated blood pressure Blood Pressure Disposition: further management by hospitalist CLARISSA Narrative Patient is a 54-year-old female diagnosed with UTI at urgent care external bring her back to presenting today with concern for allergic reaction. EMS was called . Difficulty breathing and tongue swelling received steroids, Benadryl, and epinephrine prior to arrival. Patient has improvement but still little bit of tingling in her throat with nausea. Patient is somewhat tremulous upon arrival. Mildly anxious. Fairly benign exam. Lungs are clear. Given additional Pepcid here as well. Given the allergic reaction, anaphylaxis protocol requiring epinephrine she was monitored for several hours in about 2 and half hours and began experience more throat swelling. Was given additional Benadryl and some Ativan for tremulousness. Given the return of throat closing symptoms that she states were almost as bad as before she received additional IM epinephrine. Doubt that she has pyelonephritis at this time is not appear septic. Defer additional urinary antibiotic choice at this time to the hospitalist team will evaluate for admission to monitor for additional allergic reaction anaphylaxis symptomatologies. Impression & Plan Anaphylactic reaction Discharge Plan Visit Data *Final* Discharge Date/Time: 12/09/19 18:30 Chief Complaint: Allergic Reaction ED Provider: Stanford Hernandez ED Midlevel Provider: Lupe Noel Discharge Problem: Anaphylactic reaction Patient Disposition: Admitted As Inpatient Discharge Instructions Interventions: ED Discharge Assessment Last Done: 12/09/19 18:30 Discharge Problem: Anaphylactic reaction Qualifiers: Encounter type: initial encounter Qualified Code(s): T78.2XXA - Anaphylactic shock, unspecified, initial encounter The scribe's documentation has been prepared under my direction and personally reviewed by me in its entirety. I confirm that the note above accurately reflects all work, treatment, procedures, and medical decision making performed by me.
[2019-12-09] MEDS: DICYCLOMINE HCL 20 MG TAB PO SCH (20:54)
[2019-12-09] MEDS: TRAZODONE HCL 50 MG TAB PO SCH (20:54)
[2019-12-09] MEDS: FAMOTIDINE 20 MG in SYRINGE 3 ML IV SCH (20:54)
[2019-12-09] MEDS: DIVALPROEX DELAY RELEASE 500 MG TAB PO SCH (20:55)
[2019-12-09] MEDS: HEPARIN SOD 5,000 UNIT/0.5 ML VIAL SQ SCH (20:55)
[2019-12-10] MEDS: DiphenhydrAMINE HCL 50 MG/ML VIAL IV SCH ×3 (01:02→14:31)
[2019-12-10] MEDS: SODIUM CHLORIDE 0.9% 1000ML 1,000 ML IV SCH ×2 (02:10→11:23)
[2019-12-10 07:30] LABS: Basophils # (auto) 0.01 K/uL (0-0.2); Basophils % (auto) 0.1 %; Hematocrit (blood only) 40.7 % (37-47); Hemoglobin 13.2 g/dL (12.0-16.0); Immature Granulocytes # (auto) 0.01 K/uL (0.00-0.02); Immature Granulocytes % (auto) 0.1 %; Lymphocytes # (auto) 1.63 K/uL (1.2-3.4); Lymphocytes % (auto) 15.5 %; Mean Corpuscular Hemoglobin 29.7 pg (25-34); Mean Corpuscular Hgb Conc 32.4 g/dL (32-36); Mean Corpuscular Volume 91.7 fL (80-100); Mean Platelet Volume 9.3 fL (7.4-10.4); Monocytes # (auto) 0.59 K/uL (0.11-0.59); Monocytes % (auto) 5.6 %; Neutrophils # (auto) 8.27 K/uL (1.4-6.5); Neutrophils % (auto) 78.7 %; Platelet Count 266 K/uL (130-400); RDW Coefficient of Variation 13.6 % (11.5-14.5); RDW Standard Deviation 45.6 fL (36.4-46.3); Red Blood Count 4.44 M/uL (4.2-5.4); White Blood Count 10.51 K/uL (4.8-10.8)
[2019-12-10] MEDS: DIVALPROEX DELAY RELEASE 500 MG TAB PO SCH ×2 (07:47→20:24)
[2019-12-10] MEDS: DICYCLOMINE HCL 20 MG TAB PO SCH ×4 (07:47→20:24)
[2019-12-10] MEDS: HEPARIN SOD 5,000 UNIT/0.5 ML VIAL SQ SCH ×2 (07:47→20:28)
[2019-12-10] MEDS: BuPROPion XL 300 MG TABCR PO SCH (07:48)
[2019-12-10] MEDS: ALPRAZolam 0.5 MG TABLET PO PRN ×3 (07:50→20:24)
[2019-12-10 08:03] LABS: BUN Creatinine Ratio 16.5 (10-20); Creatinine Clr Calc Pharmacy 82.9 ml/min; Est GFR (African American) 79.8; Est GFR (Non-African American) 68.9; Potassium 4.7 mmol/L (3.5-5.1)
[2019-12-10] MEDS: FAMOTIDINE 20 MG in SYRINGE 3 ML IV SCH ×2 (08:56→20:27)
[2019-12-10] MEDS ORDERED: ACETAMINOPHEN 500 MG TAB PO PRN (09:07)
--- NOTE | 2019-12-10 09:15 | Hospitalist Progress Note ---
Date of Service December 10, 2019 Assessment & Plan (1) Anaphylactic reaction: Likely secondary to reaction to Bactrim Per admitting service notes: Presented with generalized rash, generalized shakes, nausea, throat swelling and upper abdominal discomfort Received intravenous Solu-Medrol, intravenous famotidine, intravenous Benadryl and 2 doses of epinephrine We will continue H1, H2 andie -Today, patient is improving Continue Solu-Medrol 40 mg IV every 12 hours Continue famotidine IV twice daily Continue Benadryl every 6 hours Start Zyrtec daily Will need epinephrine and anaphylaxis action plan upon discharge (2) UTI (urinary tract infection): Per admitting service notes: Has history of bladder surgery secondary rupture at childbirth Complicated by recurrent UTI and is followed up as an outpatient with urologist She complained UTI symptoms this morning and was given Bactrim from urgent care center She was noted to have generalized shakes without any fever and right renal angle was tender on examination Urine culture taken from the urgent care has not been reported yet We will start intravenous ceftriaxone --Today urinary symptoms resolved Urine culture taken from urgent care is pending Urine culture taken from the Er still pending Continue IV ceftriaxone, being Tolerated well (3) Bipolar disorder: No acute issue (4) Depression: No acute issue DVT prophylaxis Subcu heparin CODE STATUS Full Disposition anticipate discharge home when medically stable possibly tomorrow Subjective Follow-up for anaphylactic reaction likely secondary to Bactrim Seen sleeping but easily awakened, comfortable, not in distress States she feels improved compared to yesterday Denies shortness of breath but does report some mild swelling on her throat when she is swallowing. Denies tongue or lip swelling Still has itching on her hands and feet but improved compared to yesterday No abdominal pain, nausea, urinary symptoms Has mild headache, no dizziness, no cough no fevers or chills No other symptoms Review of Systems Review of Systems: All systems reviewed & are unremarkable except as noted in HPI & below Physical Exam Physical Exam: General- oriented x 3, not in distress, speaks in sentences with no effort or accessory muscle use Head- atraumatic Eyes- PERRL, EOMI, anicteric ENT- oropharynx clear Neck- supple, no JVD, no adenopathy, no thyromegaly; carotids +2/2, no bruits appreciated Lungs- clear to auscultation bilaterally, no rales/wheezes Heart- normal rate, regular rhythm; no murmur, no gallop, no rub appreciated Positive mild erythema on the upper chest wall and lower neck Abdomen- normal bowel sounds, nondistended, soft, nontender, no masses or hepatosplenomegaly Extremities- Positive mild erythema of the fingers and toes bilaterally, No urticaria no pretibial edema, no calf tenderness; peripheral pulses intact Neuro- alert, oriented x 3; CN 2-12 grossly intact; motor 5/5 bilaterally;sensation 100% on all extremities; no other gross focal neurologic deficits Skin- warm & dry Results & Data ([facility]) Vital Signs (Past 12 Hours) Vital Signs Temp Pulse Pulse Resp BP Pulse Ox 12/10/19 07:02 36.4 C L 79 19 109/65 92 12/10/19 03:47 36.3 C L 77 18 109/64 94 12/10/19 00:57 36.4 C L 75 17 106/64 96 12/10/19 00:00 86 (1) Anaphylactic reaction Encounter type: initial encounter Qualified Code(s): T78.2XXA - Anaphylactic shock, unspecified, initial encounter
[2019-12-10] MEDS: methylPREDNISolone 40 MG in SYRINGE 0 ML IV SCH ×2 (09:44→20:24)
[2019-12-10] MEDS: CETIRIZINE HCL 10 MG TABLET PO SCH (09:45)
[2019-12-10] MEDS: cefTRIAXone SODIUM 2,000 MG in DEXTROSE 5% 50 ML/50 ML BAG IV SCH (17:29)
[2019-12-10] MEDS: TRAZODONE HCL 50 MG TAB PO SCH (20:25)
[2019-12-11] MEDS: methylPREDNISolone 40 MG in SYRINGE 0 ML IV SCH (08:37)
[2019-12-11] MEDS: BuPROPion XL 300 MG TABCR PO SCH (08:37)
[2019-12-11] MEDS: DICYCLOMINE HCL 20 MG TAB PO SCH ×3 (08:37→17:17)
[2019-12-11] MEDS: DIVALPROEX DELAY RELEASE 500 MG TAB PO SCH (08:37)
[2019-12-11] MEDS: CETIRIZINE HCL 10 MG TABLET PO SCH (08:37)
[2019-12-11] MEDS: HEPARIN SOD 5,000 UNIT/0.5 ML VIAL SQ SCH (08:38)
[2019-12-11] MEDS: FAMOTIDINE 20 MG in SYRINGE 3 ML IV SCH (08:39)
[2019-12-11] MEDS: ALPRAZolam 0.5 MG TABLET PO PRN ×2 (08:43→15:26)
[2019-12-11] MEDS: cefTRIAXone SODIUM 2,000 MG in DEXTROSE 5% 50 ML/50 ML BAG IV SCH (17:17)
--- NOTE | 2019-12-11 17:28 | Discharge Summary ---
Date of Service December 11, 2019 Admission HPI Per Admitting Provider She is a 54-year-old female with significant past medical history of prolonged urinary symptoms due to surgery for bladder rupture in the past with recurrent UTI, bipolar disorder, migraine, anxiety with depression, hiatal hernia, irritable bowel syndrome, and hyperlipidemia apparently was seen in the urgent care center with symptoms of UTI. She denies any fever and/or chills and she was given Bactrim for possible urinary tract infection from the urgent care center. She took Bactrim first dose and after about 30 minutes she started to have generalized rash associated with shakes, chills, nausea, dizziness and throat tightness. She received 125 mg Solu-Medrol on the way to ER and also a dose of epinephrine. In the ER she was hemodynamically stable with generalized shakes, generalized red purpuric rash and complaint throat swelling but no shortness of breath associated with it and no desaturation. She received another dose of epinephrine , intravenous Benadryl and intravenous Pepcid and was advised for admission. She was feeling little better when I saw her in the emergency room and her only complaint was throat tightness but no desaturation. Discharge Data Allergies Allergy/AdvReac Type Severity Reaction Status Date / Time buprenorphine [From Subutex] Allergy Severe Anaphylaxis Verified 12/09/19 16:16 latex Allergy Severe ANAPHYLAXIS Verified 12/09/19 16:16 sulfamethoxazole Allergy Severe Anaphylaxis Verified 12/09/19 18:27 [From Bactrim] trimethoprim [From Bactrim] Allergy Severe Anaphylaxis Verified 12/09/19 18:27 prochlorperazine AdvReac Intermediate dystonic Verified 12/09/19 16:16 [From Compazine] reaction Consultations 12/09/19 16:58 ED Decision to Admit Stat Hospital Course (1) Anaphylactic reaction: Likely secondary to reaction to Bactrim Per admitting service notes: Presented with generalized rash, generalized shakes, nausea, throat swelling and upper abdominal discomfort Received intravenous Solu-Medrol, intravenous famotidine, intravenous Benadryl and 2 doses of epinephrine We will continue H1, H2 andie -Today, patient is improving Continue Solu-Medrol 40 mg IV every 12 hours Continue famotidine IV twice daily Continue Benadryl every 6 hours Start Zyrtec daily Will need epinephrine and anaphylaxis action plan upon discharge (2) UTI (urinary tract infection): Per admitting service notes: Has history of bladder surgery secondary rupture at childbirth Complicated by recurrent UTI and is followed up as an outpatient with urologist She complained UTI symptoms this morning and was given Bactrim from urgent care center She was noted to have generalized shakes without any fever and right renal angle was tender on examination Urine culture taken from the urgent care has not been reported yet We will start intravenous ceftriaxone --Today urinary symptoms resolved Urine culture taken from urgent care is pending Urine culture taken from the Er still pending Continue IV ceftriaxone, being Tolerated well (3) Bipolar disorder: No acute issue (4) Depression: No acute issue DVT prophylaxis Subcu heparin CODE STATUS Full Disposition anticipate discharge home when medically stable possibly tomorrow Discharge Plan Discharge Items Patient Disposition: Home - Self-Care Reason For Visit: ANAPHYLACTIC REACTION DUE TO BACTRIM Discharge Diagnosis: SEVERE ANAPHYLACTIC REACTION SECONDARY TO BACTRIM Activity: As commented below Activity Comment: Resume activity gradually as tolerated Lifting: Wait until after follow-up appointment Exercise/Sports: Wait until after follow-up appointment Driving/Machine Use: No driving until allowed by primary care physician Non-emergency contact: Primary Care Provider Call non-emergency contact if: you have any medication questions Follow-up/Referrals: Victorina Dotson DO [Primary Care Provider] - Diet: Heart Healthy Addtl Attending Provider Instructions: Please review your new medication list and follow instructions carefully Prednisone instructions: Take 4 tabs p.o. daily x2 days, then Take 2 tabs p.o. daily x2 days, then Take 1 tab p.o. daily x2 days then stop Do not drive if you are taking Benadryl. Do not drive if you feel drowsy. Please confirm with your Primary Care Physician as to when you can safely drive again. Call your primary care physician if you are having worsening of itching or rash, urinary symptoms, fevers or chills. Call 911 immediately if you are having recurrence of anaphylactic reaction, throat, tongue, lip swelling. Please follow-up with your primary care physician this week. The clinic will be calling you for an appointment. Establish with an research support specialist locally in 1 to 2 weeks. Your primary care physician can assist you with the process. Pending Studies at Discharge: No Stand-Alone Forms: My [employer], Work/School Release (Inpt), Smoking Cessation Medications and DC Order Prescriptions: New cetirizine 10 mg Tablet 10 mg PO QAM 14 Days Qty: 14 RF: 2 diphenhydramine HCl [Benadryl] 25 mg Capsule 25 mg PO BID 7 Days Qty: 30 RF: 2 famotidine 20 mg tablet 20 mg PO BID 7 Days Qty: 14 RF: 0 prednisone 10 mg tablet 10 mg PO UD Qty: 14 RF: 0 epinephrine [EpiPen 2-Julian] 0.3 mg/0.3 mL auto-injector 0.3 mg IM UD PRN (Reason: anaphylaxis) Qty: 2 RF: 2 Continued phenazopyridine 200 mg tablet 200 mg PO TID PRN (Reason: bladder pain) RF: 0 alprazolam [Xanax] 0.5 mg tablet 0.5 mg PO TID PRN (Reason: Anxiety) RF: 0 atorvastatin 10 mg tablet 10 mg PO QAM RF: 0 divalproex 500 mg tablet,delayed release (DR/EC) 500 mg PO BID RF: 0 trazodone 150 mg tablet 150 mg PO HS RF: 0 omeprazole 20 mg capsule,delayed release(DR/EC) 20 mg PO QAM RF: 0 bupropion HCl 300 mg tablet extended release 24 hr 300 mg PO QAM RF: 0 dicyclomine 20 mg Tablet 20 mg PO QID RF: 0 Discontinued sulfamethoxazole-trimethoprim [Bactrim DS] 800-160 mg tablet 1 tab PO BID RF: 0 Discharge Orders: Discharge Order (Routine); Ordered 12/11/19 Ordered By: Dejan Jackson Admission Data Admit Date/Time: 12/09/19 17:52 Attending Provider: Dejan Jackson Admit Provider: Raquel Gallegos Primary Care Provider: Victorina Dotson Other Providers: Raquel Gallegos
--- NOTE | 2019-12-11 17:36 | Hospitalist Progress Note ---
Date of Service delayed entry date of service noted below December 11, 2019 Assessment & Plan (1) Anaphylactic reaction: Likely secondary to Bactrim Per admitting service notes: Presented with generalized rash, generalized shakes, nausea, throat swelling and upper abdominal discomfort Received intravenous Solu-Medrol, intravenous famotidine, intravenous Benadryl and 2 doses of epinephrine We will continue H1, H2 andie -given Solu-Medrol 40 mg IV every 12 hours famotidine IV twice daily Benadryl every 6 hours Zyrtec daily - symptoms resolved except for mild pruritus, erythema fingers and feet discharge on Prednisone taper, Bendaryl BID, Famotidine BID, Zyrtec daily, Epipen need to refer to Alergist - education provided and anaphylaxis action plan given upon discharge all questions answered (2) UTI (urinary tract infection): Per admitting service notes: Has history of bladder surgery secondary rupture at childbirth Complicated by recurrent UTI and is followed up as an outpatient with urologist She complained UTI symptoms this morning and was given Bactrim from urgent care center She was noted to have generalized shakes without any fever and right renal angle was tender on examination Urine culture taken from the urgent care has not been reported yet We will start intravenous ceftriaxone -- Urine culture: E coli given 3 days of IV ceftriaxone, Tolerated well -- monitor as outpatient (3) Bipolar disorder: No acute issue (4) Depression: No acute issue D/c home ff up with PCP in 1 week , clinic to call patient as office closed Refer to Allergologist Subjective ff up for anaphylaxis seen resting in bed, comfortable states she feels much better overall throat swelling has resolved, denies lip/tongue swelling mild pruritus hands and feet no other symptoms states she is ready and would like to be discharged Review of Systems Review of Systems: All systems reviewed & are unremarkable except as noted in HPI & below Physical Exam Physical Exam: General- oriented x 3, not in distress, speaks in sentences with no effort or accessory muscle use Eyes- anicteric Neck- no JVD Lungs- clear breath sounds bilaterally, no rales/wheezes Heart- normal rate, regular rhythm; no murmurs no erythema on chest Abdomen- normal bowel sounds, nondistended, soft, nontender Extremities- no pretibial edema, no calf tenderness very mild erythema fingers and toes Neuro- alert, oriented x 3; no gross focal neurologic deficits Skin- warm & dry Results & Data ([facility]) Vital Signs (Past 12 Hours) Vital Signs Temp Pulse Pulse Resp BP Pulse Ox 12/11/19 16:00 36.4 C L 68 17 134/76 95 12/11/19 10:56 36.8 C 77 18 104/64 97 12/11/19 09:53 36.6 C 65 18 132/83 97 12/11/19 08:00 75 12/11/19 06:55 36.3 C L 71 17 105/67 95 (1) Anaphylactic reaction Encounter type: initial encounter Qualified Code(s): T78.2XXA - Anaphylactic shock, unspecified, initial encounter
--- NOTE | 2019-12-14 08:31 | Discharge Summary ---
Date of Service December 14, 2019 Admission HPI Per Admitting Provider Chief Complaint: Generalized rash, chills, nausea and throat swelling following taking of Bactrim DS this afternoon. Primary Care Provider: Victorina Dotson DO She is a 54-year-old female with significant past medical history of prolonged urinary symptoms due to surgery for bladder rupture in the past with recurrent UTI, bipolar disorder, migraine, anxiety with depression, hiatal hernia, irritable bowel syndrome, and hyperlipidemia apparently was seen in the urgent care center with symptoms of UTI. She denies any fever and/or chills and she was given Bactrim for possible urinary tract infection from the urgent care center. She took Bactrim first dose and after about 30 minutes she started to have generalized rash associated with shakes, chills, nausea, dizziness and throat tightness. She received 125 mg Solu-Medrol on the way to ER and also a dose of epinephrine. In the ER she was hemodynamically stable with generalized shakes, generalized red purpuric rash and complaint throat swelling but no shortness of breath associated with it and no desaturation. She received another dose of epinephrine , intravenous Benadryl and intravenous Pepcid and was advised for admission. She was feeling little better when I saw her in the emergency room and her only complaint was throat tightness but no desaturation. Admission Exam Per Admitting Provider Physical Exam: Lying in the bed very anxious with generalized shakes Constitutional: well developed, well nourished, + acute distress and + ill appearing Eyes: PERRL, conjunctivae normal, anicteric sclerae ENMT: external ear and nose normal, oropharynx normal Mouth: no tongue abnormality Neck: normal visual inspection and trachea midline Thyroid: normal thyroid Has bilateral tonsillar enlargement, Respiratory: normal respiratory effort Auscultation: lungs clear to auscultation bilaterally Cardiovascular: Rate/Rhythm: regular rate and regular rhythm Heart Sounds: no murmur Gastrointestinal (Abdomen): Inspection/Auscultation: abdomen normal to inspection and normal bowel sounds; abdomen not distended Percussion/Palpation: abdomen soft; abdomen nontender Has right renal angle tenderness Musculoskeletal: No acute arthritis in any joints Skin: Minimal erythema involving the dorsum of the hands but generalized rash is resolved Neurologic: moves all extremities; no focal motor deficits Lymphatic: no cervical or axillary lymphadenopathy Principal Diagnosis ANAPHYLACTIC REACTION SECONDARY TO BACTRIM Discharge Exam General- oriented x 3, not in distress, speaks in sentences with no effort or accessory muscle use Eyes- anicteric Neck- no JVD Lungs- clear breath sounds bilaterally, no rales/wheezes Heart- normal rate, regular rhythm; no murmurs no erythema on chest Abdomen- normal bowel sounds, nondistended, soft, nontender Extremities- no pretibial edema, no calf tenderness very mild erythema fingers and toes Neuro- alert, oriented x 3; no gross focal neurologic deficits Skin- warm & dry Discharge Data Allergies Allergy/AdvReac Type Severity Reaction Status Date / Time buprenorphine [From Subutex] Allergy Severe Anaphylaxis Verified 12/09/19 16:16 latex Allergy Severe ANAPHYLAXIS Verified 12/09/19 16:16 sulfamethoxazole Allergy Severe Anaphylaxis Verified 12/09/19 18:27 [From Bactrim] trimethoprim [From Bactrim] Allergy Severe Anaphylaxis Verified 12/09/19 18:27 prochlorperazine AdvReac Intermediate dystonic Verified 12/09/19 16:16 [From Compazine] reaction Consultations 12/09/19 16:58 ED Decision to Admit Stat Hospital Course (1) Anaphylactic reaction: secondary to Bactrim Per admitting service notes: Presented with generalized rash, generalized shakes, nausea, throat swelling and upper abdominal discomfort Received intravenous Solu-Medrol, intravenous famotidine, intravenous Benadryl and 2 doses of epinephrine We will continue H1, H2 andie -given Solu-Medrol 40 mg IV every 12 hours famotidine IV twice daily Benadryl every 6 hours Zyrtec daily - symptoms resolved except for mild pruritus, erythema fingers and feet discharge on Prednisone taper, Bendaryl BID, Famotidine BID, Zyrtec daily, Epipen need to refer to Alergist - education provided and anaphylaxis action plan given upon discharge all questions answered (2) UTI (urinary tract infection): Per admitting service notes: Has history of bladder surgery secondary rupture at childbirth Complicated by recurrent UTI and is followed up as an outpatient with urologist She complained UTI symptoms this morning and was given Bactrim from urgent care center She was noted to have generalized shakes without any fever and right renal angle was tender on examination Urine culture taken from the urgent care has not been reported yet We will start intravenous ceftriaxone -- Urine culture: E coli given 3 days of IV ceftriaxone, Tolerated well -- monitor as outpatient (3) Bipolar disorder: No acute issue (4) Depression: No acute issue D/c home ff up with PCP in 1 week , clinic to call patient as office closed Refer to Allergologist Total Time Total Time Spent Total Time Spent (In Minutes): 50 MINUTES Discharge Plan Discharge Items Patient Disposition: Home - Self-Care Reason For Visit: ANAPHYLACTIC REACTION DUE TO BACTRIM Discharge Diagnosis: SEVERE ANAPHYLACTIC REACTION SECONDARY TO BACTRIM Activity: As commented below Activity Comment: Resume activity gradually as tolerated Lifting: Wait until after follow-up appointment Exercise/Sports: Wait until after follow-up appointment Driving/Machine Use: No driving until allowed by primary care physician Non-emergency contact: Primary Care Provider Call non-emergency contact if: you have any medication questions Follow-up/Referrals: Victorina Dotson DO [Primary Care Provider] - Diet: Heart Healthy Addtl Attending Provider Instructions: Please review your new medication list and follow instructions carefully Prednisone instructions: Take 4 tabs p.o. daily x2 days, then Take 2 tabs p.o. daily x2 days, then Take 1 tab p.o. daily x2 days then stop Do not drive if you are taking Benadryl. Do not drive if you feel drowsy. Please confirm with your Primary Care Physician as to when you can safely drive again. Call your primary care physician if you are having worsening of itching or rash, urinary symptoms, fevers or chills. Call 911 immediately if you are having recurrence of anaphylactic reaction, throat, tongue, lip swelling. Please follow-up with your primary care physician this week. The clinic will be calling you for an appointment. Establish with an command and control specialist locally in 1 to 2 weeks. Your primary care physician can assist you with the process. Pending Studies at Discharge: No Stand-Alone Forms: My [employer], Work/School Release (Inpt), Smoking Cessation Medications and DC Order Prescriptions: New cetirizine 10 mg Tablet 10 mg PO QAM 14 Days Qty: 14 RF: 2 diphenhydramine HCl [Benadryl] 25 mg Capsule 25 mg PO BID 7 Days Qty: 30 RF: 2 famotidine 20 mg tablet 20 mg PO BID 7 Days Qty: 14 RF: 0 prednisone 10 mg tablet 10 mg PO UD Qty: 14 RF: 0 epinephrine [EpiPen 2-Julian] 0.3 mg/0.3 mL auto-injector 0.3 mg IM UD PRN (Reason: anaphylaxis) Qty: 2 RF: 2 Continued phenazopyridine 200 mg tablet 200 mg PO TID PRN (Reason: bladder pain) RF: 0 alprazolam [Xanax] 0.5 mg tablet 0.5 mg PO TID PRN (Reason: Anxiety) RF: 0 atorvastatin 10 mg tablet 10 mg PO QAM RF: 0 divalproex 500 mg tablet,delayed release (DR/EC) 500 mg PO BID RF: 0 trazodone 150 mg tablet 150 mg PO HS RF: 0 omeprazole 20 mg capsule,delayed release(DR/EC) 20 mg PO QAM RF: 0 bupropion HCl 300 mg tablet extended release 24 hr 300 mg PO QAM RF: 0 dicyclomine 20 mg Tablet 20 mg PO QID RF: 0 Discontinued sulfamethoxazole-trimethoprim [Bactrim DS] 800-160 mg tablet 1 tab PO BID RF: 0 Discharge Orders: Discharge Order (Routine); Ordered 12/11/19 Ordered By: Dejan Jackson Admission Data Admit Date/Time: 12/09/19 17:52 Attending Provider: Dejan Jackson Admit Provider: Raquel Gallegos Primary Care Provider: Victorina Dotson Other Providers: Raquel Gallegos Other Interventions: Discharge Summary Assessment (RN) Last Done: 12/11/19 17:34 DC Date/Time DO NOT enter until pt leaves facility: 12/11/19 18:33
== END 2019-12-11 18:33 | disposition home or self-care (01) | DRG 916 ==
LOC: ED 14:26 → SUATTDRO 17:52 → 2S 17:52 → 2N 12-11 09:06

== ENCOUNTER 2020-03-16 04:01 | Inpatient (IN) ==
[2020-03-16] MEDS ORDERED: ACETAMINOPHEN 1,000 MG/100 ML VIAL IV STA (04:11)
[2020-03-16] MEDS ORDERED: SODIUM CHLORIDE 0.9% 1000ML 1,000 ML IV SCH (04:15)
[2020-03-16 04:38] LABS: Basophils # (auto) 0.02 K/uL (0-0.2); Basophils % (auto) 0.2 %; Eosinophils # (auto) 0.05 K/uL (0-0.5); Eosinophils % (auto) 0.5 %; Hemoglobin 14.4 g/dL (12.0-16.0); Immature Granulocytes # (auto) 0.03 K/uL (0.00-0.02); Immature Granulocytes % (auto) 0.3 %; Lymphocytes # (auto) 2.09 K/uL (1.2-3.4); Lymphocytes % (auto) 19.8 %; Mean Corpuscular Hemoglobin 29.8 pg (25-34); Mean Corpuscular Hgb Conc 33.5 g/dL (32-36); Mean Platelet Volume 9.8 fL (7.4-10.4); Monocytes % (auto) 3.8 %; Neutrophils # (auto) 7.99 K/uL (1.4-6.5); Neutrophils % (auto) 75.4 %; Platelet Count 347 K/uL (130-400); RDW Coefficient of Variation 14.5 % (11.5-14.5); RDW Standard Deviation 47.6 fL (36.4-46.3); Red Blood Count 4.83 M/uL (4.2-5.4); White Blood Count 10.58 K/uL (4.8-10.8)
[2020-03-16 04:50] LABS: Partial Thromboplastin Ratio 0.9; Prothrombin Time 10.4 Seconds (9.0-12.0)
[2020-03-16 04:54] LABS: Alanine Aminotransferase 25 U/L (12-78); Albumin Level 3.9 gm/dl (3.4-5.0); Aspartate Aminotransferase 16 U/L (15-37); Blood Urea Nitrogen 11 mg/dl (7-18); Calcium 9.3 mg/dl (8.5-10.1); Carbon Dioxide 23 mmol/L (21-32); Chloride 107 mmol/L (98-107); Creatinine Clr Calc Pharmacy 79.6 ml/min; Est GFR (African American) 79.3; Est GFR (Non-African American) 68.4; Glucose 176 mg/dl (70-99); Magnesium 2.1 mg/dl (1.8-2.4); Potassium 3.8 mmol/L (3.5-5.1); Sodium 139 mmol/L (136-145)
[2020-03-16 04:57] LABS: Alkaline Phosphatase 171 U/L (45-117); Bilirubin,Total 0.5 mg/dl (0.2-1); Globulin 3.8 gm/dl (2.5-4.0); Total Protein 7.7 gm/dl (6.4-8.2); Troponin I < 0.015 ng/ml (0-0.045)
[2020-03-16] MEDS ORDERED: ONDANSETRON INJ 2 MG/ML 2 ML VIAL IV STA (05:05)
[2020-03-16] MEDS ORDERED: LORazepam 2 MG/ML VIAL (IM USE) ONE (05:52)
--- NOTE | 2020-03-16 06:06 | Emergency Department Note ---
History of Present Illness General Chief complaint: Fall Stated complaint: FALL/DIZZY Time Seen by Provider: 03/16/20 04:04 History of Present Illness Maximum Pain Intensity: 5 This is a 55-year-old female presenting to the emergency department for evaluation of syncopal episode and head injury that occurred approximately 3 to 4 hours prior to arrival. The patient arrives via EMS and states that she got up around midnight, walked out of her bedroom, and believes that she had a syncopal episode. Patient is having left-sided head and neck pain. She does not have any blood or bleeding. The patient was evidently walking to see her , and did not have seizure-like activity after the episode. The patient waited several hours before coming to the ER, stating that she is feeling worse and worse. She is very nauseated and feels the need to vomit, although she has not had significant emesis. She does not feel short of breath, nor she experiencing chest pain. No fevers or chills. No lower abdominal discomfort. The patient has a significant history of Polypharm drug abuse and overdose. She admits to abusing OTC cough medicine regularly, but is unable to tell us the last time she did this. She denies alcohol use. She is prescribed Xanax, but does not take this as prescribed. She rates her current discomfort a 5/10. She has not taken anything [id number] for pain control. Home Medications Home Medications Medication Instructions Recorded Confirmed Type bupropion HCl 300 mg PO QAM 02/25/19 03/16/20 History divalproex 500 mg PO BID 02/25/19 03/16/20 History trazodone 150 mg PO HS 02/25/19 03/16/20 History dicyclomine 20 mg PO Q6 04/12/19 03/16/20 History alprazolam [Xanax] 0.5 mg PO TID PRN 12/09/19 03/16/20 History cetirizine 10 mg PO QAM 14 Days #14 tab 12/11/19 03/16/20 Rx epinephrine [EpiPen 2-Julian] 0.3 mg IM UD PRN #2 ea 12/11/19 03/16/20 Rx Clove Oil 1 dose TOPICAL DIRECTED 01/08/20 03/16/20 History L.acid,anum,rham-B.bifid,long 250 cap PO BID 01/08/20 03/16/20 History [Digestive Probiotic] acetaminophen [Tylenol Extra 1,000 mg PO QID PRN 01/08/20 03/16/20 History Strength] ibuprofen 600 mg PO Q6H PRN 01/08/20 03/16/20 History lidocaine HCl [Lidocaine Viscous] 2 % PO DIRECTED PRN 01/08/20 03/16/20 History gabapentin 600 mg tablet 600 mg PO QID #120 tab 03/07/20 03/16/20 Rx atorvastatin 10 mg PO DAILY 03/16/20 03/16/20 History citalopram [Celexa] 10 mg PO BID 03/16/20 03/16/20 History clonidine HCl 0.1 mg PO BID 03/16/20 03/16/20 History diphenhydramine HCl [Benadryl] 25 mg PO Q6 PRN 03/16/20 03/16/20 History hydroxyzine pamoate 25 mg PO TID PRN 03/16/20 03/16/20 History omeprazole 20 mg PO DAILY 03/16/20 03/16/20 History sucralfate 1 g PO BID 03/16/20 03/16/20 History Allergies Allergy/AdvReac Type Severity Reaction Status Date / Time buprenorphine [From Subutex] Allergy Severe Anaphylaxis Verified 03/16/20 04:27 latex Allergy Severe ANAPHYLAXIS Verified 03/16/20 04:27 sulfamethoxazole Allergy Severe Anaphylaxis Verified 03/16/20 04:27 [From Bactrim] trimethoprim [From Bactrim] Allergy Severe Anaphylaxis Verified 03/16/20 04:27 prochlorperazine AdvReac Intermediate dystonic Verified 03/16/20 04:27 [From Compazine] reaction Past Med/Surg History Medical History Anxiety Bipolar disorder Chronic back pain Depression Encounter for pre-operative examination GERD (gastroesophageal reflux disease) CONTROLLED Hiatal hernia History of ovarian cyst Hyperlipidemia IBS (irritable bowel syndrome) Migraines Osteoarthritis Post-traumatic osteoarthritis of right knee Right knee injury (Acute) Temporomandibular joint disorder Surgical History H/O arthroscopic knee surgery History of arthroscopic knee surgery B/L History of bladder repair surgery REPAIR 2/2 INJURY WITH HYSTER, + MESH X2 History of cholecystectomy History of colonoscopy History of esophagogastroduodenoscopy (EGD) History of open reduction and internal fixation (ORIF) procedure S/P RIGHT FIBULA ORIF History of ovarian cystectomy History of partial hysterectomy History of surgery COLPORRHAPHY History of tooth extraction History of total knee replacement Hx of cholecystectomy Family History Mother Parkinsons disease Father Prostate cancer Grandmother (Maternal) Coronary heart disease Grandfather (Maternal) Coronary heart disease Social History Preferred Language: [place]i Communication Ability: Effective Database Specialist Required: No Beliefs That Will Affect Care: None marital status: Single Current Living Situation: Alone current occupational status: employed Other Information That Helps Us Care for You: No Feels Safe at Home: Yes Safety Concerns: Feels Safe At This Time Smoking Status: Current every day smoker Tobacco Type: cigarettes ; Cigarettes Per Day: 5 ; Do You Dip or Chew Tobacco: No ; Second Hand Exposure: No ; Tobacco Cessation Education Requested by Patient: No Hx Alcohol Use: No Hx Substance Use: Yes substance use type: opiates and other Substance Use Type Other:: coricidin, history of opiate abuse Last Used Substance: Unknown Review of Systems A total of 10 systems reviewed and were otherwise negative Physical Exam Vital Signs Vital Signs - 24 hr 03/16/20 04:04 03/16/20 04:17 03/16/20 05:30 Temperature 36.5 C Temperature Source Oral Pulse Rate 82 Pulse Rate [Apical] 69 Respiratory Rate 20 22 Respiratory Effort / Characteristics Non-Labored Spontaneous Respiratory Depth Normal Blood Pressure 138/85 Blood Pressure [Right Arm] 130/77 Blood Pressure Mean 102 Blood Pressure Mean [Right Arm] 94 Blood Pressure Position [Right Arm] Pulse Oximetry 98 95 100 Pulse Oximetry [Right Index Finger] Oxygen Delivery Method Room Air Room Air Room Air Oxygen Delivery Method [Right Index Finger] Oxygen Flow Rate Sepsis Action Taken by Nursing No Action Required 03/16/20 06:00 03/16/20 06:31 03/16/20 06:47 Temperature Temperature Source Pulse Rate Pulse Rate [Apical] 109 H 109 H 103 H Respiratory Rate 21 18 18 Respiratory Effort / Characteristics Respiratory Depth Blood Pressure Blood Pressure [Right Arm] 132/87 140/89 137/81 Blood Pressure Mean Blood Pressure Mean [Right Arm] 102 106 99 Blood Pressure Position [Right Arm] Pulse Oximetry 100 100 98 Pulse Oximetry [Right Index Finger] Oxygen Delivery Method Non-rebreather Non-rebreather Nasal Cannula Oxygen Delivery Method [Right Index Finger] Oxygen Flow Rate 2 Sepsis Action Taken by Nursing 03/16/20 07:33 03/16/20 08:06 03/16/20 08:21 Temperature 36.6 C Temperature Source Oral Pulse Rate 95 H Pulse Rate [Apical] 94 H 87 Respiratory Rate 16 20 18 Respiratory Effort / Characteristics Respiratory Depth Blood Pressure 132/78 Blood Pressure [Right Arm] 130/80 137/78 Blood Pressure Mean Blood Pressure Mean [Right Arm] 96 97 Blood Pressure Position [Right Arm] Lying Pulse Oximetry 96 95 94 Pulse Oximetry [Right Index Finger] 94 Oxygen Delivery Method Room Air Room Air Room Air Oxygen Delivery Method [Right Index Finger] Room Air Oxygen Flow Rate Sepsis Action Taken by Nursing 03/16/20 09:40 03/16/20 11:09 03/16/20 15:25 Temperature 36.8 C 36.6 C Temperature Source Oral Oral Pulse Rate 86 Pulse Rate [Apical] 86 75 Respiratory Rate 18 20 Respiratory Effort / Characteristics Respiratory Depth Blood Pressure Blood Pressure [Right Arm] 113/68 148/72 H Blood Pressure Mean Blood Pressure Mean [Right Arm] 83 97 Blood Pressure Position [Right Arm] Lying Lying Pulse Oximetry 96 95 Pulse Oximetry [Right Index Finger] Oxygen Delivery Method Room Air Room Air Oxygen Delivery Method [Right Index Finger] Oxygen Flow Rate Sepsis Action Taken by Nursing VITALS: Vitals are noted on the nurse's note and reviewed by myself. Vital signs stable. GENERAL: Disheveled white female, who mildly uncomfortable on presentation. She is in a hard cervical spine collar. She is answering questions appropriately, although she does seem under the influence of an unknown substance. GCS is 15. HEAD: Normocephalic atraumatic. EARS: External ear normal. External auditory canals clear, tympanic membranes pearly nascimento without erythema or effusion bilaterally. EYES: Pupils equal round and reactive to light and accommodation. Conjunctivae without injection, sclerae without icterus. Extraocular movements intact. NOSE: Patent, turbinates without inflammation or discharge. MOUTH: Mucous membranes moist. Tonsils are not enlarged. Pharynx without e rythema, blood, or exudate. Uvula midline. Airway patent. NECK: Supple without nuchal rigidity. No lymphadenopathy. No thyromegaly. Cervical spine with slight left-sided tenderness. No gross step-off. HEART: Regular rate and rhythm without murmurs gallops or rubs. LUNGS: Clear to auscultation bilaterally without wheezes, rales or rhonchi. No retractions or accessory muscle use. ABDOMEN: Positive normal bowel sounds x 4. Soft, nontender, without masses or organomegaly. No guarding or rebound tenderness. MUSCULOSKELETAL: No muscle atrophy, erythema, or edema noted. Full range of mot ion in all extremities. NEURO: Patient was alert and oriented to person place and time. CN II through XII grossly intact. Course Administered Medications Atorvastatin Calcium (Lipitor) 10 mg PO DAILY [facility] Stop: 04/15/20 08:59 Last Admin: 03/16/20 10:10 Dose: Not Given Documented by: [id number] Cetirizine HCl (Zyrtec) 10 mg PO QAM [facility] Stop: 04/15/20 08:59 Last Admin: 03/16/20 10:10 Dose: Not Given Documented by: [id number] Gadobutrol (Gadavist 65ml) 8.5 ml IV ONCE PRN PRN Reason: Interaction Checking Stop: 03/20/20 16:33 Last Admin: 03/16/20 16:35 Dose: 8.5 ml Documented by: [id number] Lorazepam (Ativan) 1 mg in 2 mls @ 0.5 mls/min IV Q10M PRN PRN Reason: seizures Stop: 04/15/20 08:20 Last Admin: 03/16/20 10:08 Dose: 0.5 mls/min Documented by: [id number] Promethazine HCl 12.5 mg/ (Sodium Chloride) 50.5 mls @ 202 mls/hr IV Q6H PRN PRN Reason: Nausea And Vomiting Stop: 04/15/20 08:20 Last Infusion: 03/16/20 22:48 Dose: 0 mls/hr Documented by: [id number] Admin: 03/16/20 22:30 Dose: 202 mls/hr Documented by: [id number] Infusion: 05/08/20 15:58 Dose: 0 mls/hr Documented by: [id number] Admin: 03/16/20 15:37 Dose: 202 mls/hr Documented by: [id number] Infusion: 03/16/20 10:27 Dose: 0 mls/hr Documented by: [id number] Admin: 03/16/20 10:09 Dose: 202 mls/hr Documented by: [id number] Potassium Chloride/Dextrose/Sod Cl (D5nss + 20meq Kcl) 20 meq in 1,000 mls @ 125 mls/hr IV .Q8H [facility] Stop: 04/15/20 10:29 Last Infusion: 03/16/20 22:47 Dose: 125 mls/hr Documented by: [id number] Infusion: 03/16/20 22:30 Dose: 0 mls/hr Documented by: [id number] Admin: 03/16/20 22:00 Dose: 125 mls/hr Documented by: [id number] Infusion: 03/16/20 22:00 Dose: 125 mls/hr Documented by: [id number] Infusion: 03/16/20 19:07 Dose: 125 mls/hr Documented by: [id number] Infusion: 03/16/20 14:59 Dose: 0 mls/hr Documented by: [id number] Admin: 03/16/20 10:30 Dose: 125 mls/hr Documented by: [id number] Lorazepam (Ativan) 0.5 mg in 1 mls @ 1 mls/min IV Q4H PRN PRN Reason: Anxiety/Agitation Stop: 04/15/20 12:36 Last Admin: 03/16/20 22:42 Dose: 1 mls/min Documented by: [id number] Admin: 03/16/20 14:35 Dose: 1 mls/min Documented by: [id number] Pantoprazole Sodium (Protonix) 40 mg PO DAILY [facility] Stop: 04/15/20 08:59 Last Admin: 03/16/20 10:10 Dose: Not Given Documented by: [id number] Sucralfate (Carafate Tab) 1 gm PO BID [facility] Stop: 04/15/20 08:59 Last Admin: 03/16/20 20:35 Dose: 1 gm Documented by: [id number] Admin: 03/16/20 10:10 Dose: Not Given Documented by: [id number] Discontinued Medications Enoxaparin Sodium (Lovenox) 30 mg SQ QAM [facility] Stop: 04/15/20 08:59 Last Admin: 03/16/20 10:10 Dose: Not Given Documented by: [id number] Sodium Chloride (Nss 1000ml) 1,000 mls @ 999 mls/hr IV .Q1H1M [facility] Stop: 03/16/20 05:15 Last Infusion: 03/16/20 05:32 Dose: 0 mls/hr Documented by: [id number] Admin: 03/16/20 04:18 Dose: 999 mls/hr Documented by: [id number] Acetaminophen (Ofirmev) 1,000 mg in 100 mls @ 400 mls/hr IV NOW STA Stop: 03/16/20 04:25 Last Infusion: 03/16/20 04:57 Dose: 0 mls/hr Documented by: [id number] Admin: 03/16/20 04:18 Dose: 400 mls/hr Documented by: [id number] Lactated Ringer's (Lr) 1,000 mls @ 80 mls/hr IV .[id number] ONE Stop: 03/16/20 20:50 Last Infusion: 03/16/20 10:10 Dose: 0 mls/hr Documented by: [id number] Admin: 03/16/20 09:14 Dose: 80 mls/hr Documented by: [id number] Lorazepam (Ativan) Confirm Administered Dose 2 mg .ROUTE .STK-MED ONE Stop: 03/16/20 05:53 Last Admin: 03/16/20 05:55 Dose: 2 mg Documented by: [id number] Ondansetron HCl (Zofran) 4 mg IV NOW STA Stop: 03/16/20 05:06 Last Admin: 03/16/20 05:45 Dose: 4 mg Documented by: [id number] Critical Care Time I have personally spent greater than 41 minutes of critical care time in the direct management of this patient. This includes bedside care, interpretation of diagnostic studies, and testing, discussion with consultants, patient, and family members, and other required patient management activities. This 41 minutes is in excess of all separately billable procedures. Medical Decision Making Differential Diagnosis Differential diagnosis: Etiologies such as vasovagal event, infection, anemia, hypoglycemia, hypovolemia, electrolyte abnormalities, dysrhythmias, cardiac ischemia, cardiac tamponade, valvular heart disease, structural heart disease, seizure, vascular stenosis/dissection, pulmonary embolism, intracerebral event, toxicological process, neurologic event, as well as others were entertained. Laboratory Data Result diagrams: 03/16/20 04:00 03/16/20 04:00 Lab Results 03/16/20 03/16/20 03/16/20 Range/Units 04:00 04:00 04:00 WBC 10.58 (4.8-10.8) K/uL RBC 4.83 (4.2-5.4) M/uL Hgb 14.4 (12.0-16.0) g/dL Hct 43.0 (37-47) % MCV 89.0 (80-100) fL MCH 29.8 (25-34) pg MCHC 33.5 (32-36) g/dL RDW Std Deviation 47.6 H (36.4-46.3) fL RDW Coeff of Ace 14.5 (11.5-14.5) % Plt Count 347 (130-400) K/uL MPV 9.8 (7.4-10.4) fL Immature Gran % (Auto) 0.3 % Neut % (Auto) 75.4 % Lymph % (Auto) 19.8 % [place] % (Auto) 3.8 % Eos % (Auto) 0.5 % Baso % (Auto) 0.2 % Immature Gran # (Auto) 0.03 H (0.00-0.02) K/uL Neut # (Auto) 7.99 H (1.4-6.5) K/uL Lymph # (Auto) 2.09 (1.2-3.4) K/uL [place] # (Auto) 0.40 (0.11-0.59) K/uL Eos # (Auto) 0.05 (0-0.5) K/uL Baso # (Auto) 0.02 (0-0.2) K/uL PT 10.4 (9.0-12.0) Seconds INR 1.0 (0.9-1.1) APTT 24.0 (21.0-31.0) Seconds PTT Ratio 0.9 Sodium 139 (136-145) mmol/L Potassium 3.8 (3.5-5.1) mmol/L Chloride 107 (98-107) mmol/L Carbon Dioxide 23 (21-32) mmol/L Anion Gap 9.0 (3-11) BUN 11 (7-18) mg/dl Creatinine 0.95 (0.6-1.2) mg/dl Est Cr Clr Drug Dosing 79.6 ml/min Est GFR ( Amer) 79.3 Est GFR (Non-Af Amer) 68.4 BUN/Creatinine Ratio 12.0 (10-20) Glucose 176 H (70-99) mg/dl POC Glucose (70-99) mg/dl Estimat Average Glucose mg/dl Hemoglobin A1c (4.5-5.6) % Calcium 9.3 (8.5-10.1) mg/dl Magnesium 2.1 (1.8-2.4) mg/dl Total Bilirubin 0.5 (0.2-1) mg/dl AST 16 (15-37) U/L ALT 25 (12-78) U/L Alkaline Phosphatase 171 H (45-117) U/L Troponin I < 0.015 (0-0.045) ng/ml Total Protein 7.7 (6.4-8.2) gm/dl Albumin 3.9 (3.4-5.0) gm/dl Globulin 3.8 (2.5-4.0) gm/dl Albumin/Globulin Ratio 1.0 (0.9-2) Urine Color Urine Appearance (Clear) Urine pH (4.5-7.5) Ur Specific [place] (1.000-1.030) Urine Protein (Negative) Urine Glucose (UA) (Negative) Urine Ketones (Negative) Urine Blood (Negative) Urine Nitrite (Negative) Urine Bilirubin (Negative) Urine Urobilinogen (Negative) Ur Leukocyte Esterase (Negative) Salicylates (2.8-20) mg/dl Urine Opiates Screen (Neg) Ur Methadone, Qual (Neg) Acetaminophen (10-30) ug/ml Urine Barbiturates (Neg) Valproic Acid (50-100) mcg/ml Ur Phencyclidine (PCP) (Neg) U Amphetamin/Meth Scrn (Neg) MDMA (Ecstasy) Screen (Neg) U Benzodiazepines Scrn (Neg) Ur Cocaine Metabolite (Neg) U Marijuana (THC) Screen (Neg) Ethyl Alcohol mg/dL (0-3) mg/dl 03/16/20 03/16/20 03/16/20 Range/Units 04:00 04:00 04:00 WBC (4.8-10.8) K/uL RBC (4.2-5.4) M/uL Hgb (12.0-16.0) g/dL Hct (37-47) % MCV (80-100) fL MCH (25-34) pg MCHC (32-36) g/dL RDW Std Deviation (36.4-46.3) fL RDW Coeff of Ace (11.5-14.5) % Plt Count (130-400) K/uL MPV (7.4-10.4) fL Immature Gran % (Auto) % Neut % (Auto) % Lymph % (Auto) % [place] % (Auto) % Eos % (Auto) % Baso % (Auto) % Immature Gran # (Auto) (0.00-0.02) K/uL Neut # (Auto) (1.4-6.5) K/uL Lymph # (Auto) (1.2-3.4) K/uL [place] # (Auto) (0.11-0.59) K/uL Eos # (Auto) (0-0.5) K/uL Baso # (Auto) (0-0.2) K/uL PT (9.0-12.0) Seconds INR (0.9-1.1) APTT (21.0-31.0) Seconds PTT Ratio Sodium (136-145) mmol/L Potassium (3.5-5.1) mmol/L Chloride (98-107) mmol/L Carbon Dioxide (21-32) mmol/L Anion Gap (3-11) BUN (7-18) mg/dl Creatinine (0.6-1.2) mg/dl Est Cr Clr Drug Dosing ml/min Est GFR ( Amer) Est GFR (Non-Af Amer) BUN/Creatinine Ratio (10-20) Glucose (70-99) mg/dl POC Glucose (70-99) mg/dl Estimat Average Glucose 108 mg/dl Hemoglobin A1c 5.4 (4.5-5.6) % Calcium (8.5-10.1) mg/dl Magnesium (1.8-2.4) mg/dl Total Bilirubin (0.2-1) mg/dl AST (15-37) U/L ALT (12-78) U/L Alkaline Phosphatase (45-117) U/L Troponin I (0-0.045) ng/ml Total Protein (6.4-8.2) gm/dl Albumin (3.4-5.0) gm/dl Globulin (2.5-4.0) gm/dl Albumin/Globulin Ratio (0.9-2) Urine Color Urine Appearance (Clear) Urine pH (4.5-7.5) Ur Specific [place] (1.000-1.030) Urine Protein (Negative) Urine Glucose (UA) (Negative) Urine Ketones (Negative) Urine Blood (Negative) Urine Nitrite (Negative) Urine Bilirubin (Negative) Urine Urobilinogen (Negative) Ur Leukocyte Esterase (Negative) Salicylates < 1.7 L (2.8-20) mg/dl Urine Opiates Screen (Neg) Ur Methadone, Qual (Neg) Acetaminophen < 2 L (10-30) ug/ml Urine Barbiturates (Neg) Valproic Acid < 3 L (50-100) mcg/ml Ur Phencyclidine (PCP) (Neg) U Amphetamin/Meth Scrn (Neg) MDMA (Ecstasy) Screen (Neg) U Benzodiazepines Scrn (Neg) Ur Cocaine Metabolite (Neg) U Marijuana (THC) Screen (Neg) Ethyl Alcohol mg/dL (0-3) mg/dl 03/16/20 03/16/20 03/16/20 Range/Units 04:51 05:40 05:40 WBC (4.8-10.8) K/uL RBC (4.2-5.4) M/uL Hgb (12.0-16.0) g/dL Hct (37-47) % MCV (80-100) fL MCH (25-34) pg MCHC (32-36) g/dL RDW Std Deviation (36.4-46.3) fL RDW Coeff of Ace (11.5-14.5) % Plt Count (130-400) K/uL MPV (7.4-10.4) fL Immature Gran % (Auto) % Neut % (Auto) % Lymph % (Auto) % [place] % (Auto) % Eos % (Auto) % Baso % (Auto) % Immature Gran # (Auto) (0.00-0.02) K/uL Neut # (Auto) (1.4-6.5) K/uL Lymph # (Auto) (1.2-3.4) K/uL [place] # (Auto) (0.11-0.59) K/uL Eos # (Auto) (0-0.5) K/uL Baso # (Auto) (0-0.2) K/uL PT (9.0-12.0) Seconds INR (0.9-1.1) APTT (21.0-31.0) Seconds PTT Ratio Sodium (136-145) mmol/L Potassium (3.5-5.1) mmol/L Chloride (98-107) mmol/L Carbon Dioxide (21-32) mmol/L Anion Gap (3-11) BUN (7-18) mg/dl Creatinine (0.6-1.2) mg/dl Est Cr Clr Drug Dosing ml/min Est GFR ( Amer) Est GFR (Non-Af Amer) BUN/Creatinine Ratio (10-20) Glucose (70-99) mg/dl POC Glucose (70-99) mg/dl Estimat Average Glucose mg/dl Hemoglobin A1c (4.5-5.6) % Calcium (8.5-10.1) mg/dl Magnesium (1.8-2.4) mg/dl Total Bilirubin (0.2-1) mg/dl AST (15-37) U/L ALT (12-78) U/L Alkaline Phosphatase (45-117) U/L Troponin I (0-0.045) ng/ml Total Protein (6.4-8.2) gm/dl Albumin (3.4-5.0) gm/dl Globulin (2.5-4.0) gm/dl Albumin/Globulin Ratio (0.9-2) Urine Color Yellow Urine Appearance Clear (Clear) Urine pH 5.5 (4.5-7.5) Ur Specific [place] 1.018 (1.000-1.030) Urine Protein Negative (Negative) Urine Glucose (UA) Negative (Negative) Urine Ketones 1+ H (Negative) Urine Blood Negative (Negative) Urine Nitrite Negative (Negative) Urine Bilirubin Negative (Negative) Urine Urobilinogen Negative (Negative) Ur Leukocyte Esterase Negative (Negative) Salicylates (2.8-20) mg/dl Urine Opiates Screen Neg (Neg) Ur Methadone, Qual Neg (Neg) Acetaminophen (10-30) ug/ml Urine Barbiturates Neg (Neg) Valproic Acid (50-100) mcg/ml Ur Phencyclidine (PCP) Pos H (Neg) U Amphetamin/Meth Scrn Neg (Neg) MDMA (Ecstasy) Screen Pos H (Neg) U Benzodiazepines Scrn Neg (Neg) Ur Cocaine Metabolite Neg (Neg) U Marijuana (THC) Screen Neg (Neg) Ethyl Alcohol mg/dL < 3.0 (0-3) mg/dl 03/16/20 Range/Units 10:08 WBC (4.8-10.8) K/uL RBC (4.2-5.4) M/uL Hgb (12.0-16.0) g/dL Hct (37-47) % MCV (80-100) fL MCH (25-34) pg MCHC (32-36) g/dL RDW Std Deviation (36.4-46.3) fL RDW Coeff of Ace (11.5-14.5) % Plt Count (130-400) K/uL MPV (7.4-10.4) fL Immature Gran % (Auto) % Neut % (Auto) % Lymph % (Auto) % [place] % (Auto) % Eos % (Auto) % Baso % (Auto) % Immature Gran # (Auto) (0.00-0.02) K/uL Neut # (Auto) (1.4-6.5) K/uL Lymph # (Auto) (1.2-3.4) K/uL [place] # (Auto) (0.11-0.59) K/uL Eos # (Auto) (0-0.5) K/uL Baso # (Auto) (0-0.2) K/uL PT (9.0-12.0) Seconds INR (0.9-1.1) APTT (21.0-31.0) Seconds PTT Ratio Sodium (136-145) mmol/L Potassium (3.5-5.1) mmol/L Chloride (98-107) mmol/L Carbon Dioxide (21-32) mmol/L Anion Gap (3-11) BUN (7-18) mg/dl Creatinine (0.6-1.2) mg/dl Est Cr Clr Drug Dosing ml/min Est GFR ( Amer) Est GFR (Non-Af Amer) BUN/Creatinine Ratio (10-20) Glucose (70-99) mg/dl POC Glucose 137 H (70-99) mg/dl Estimat Average Glucose mg/dl Hemoglobin A1c (4.5-5.6) % Calcium (8.5-10.1) mg/dl Magnesium (1.8-2.4) mg/dl Total Bilirubin (0.2-1) mg/dl AST (15-37) U/L ALT (12-78) U/L Alkaline Phosphatase (45-117) U/L Troponin I (0-0.045) ng/ml Total Protein (6.4-8.2) gm/dl Albumin (3.4-5.0) gm/dl Globulin (2.5-4.0) gm/dl Albumin/Globulin Ratio (0.9-2) Urine Color Urine Appearance (Clear) Urine pH (4.5-7.5) Ur Specific [place] (1.000-1.030) Urine Protein (Negative) Urine Glucose (UA) (Negative) Urine Ketones (Negative) Urine Blood (Negative) Urine Nitrite (Negative) Urine Bilirubin (Negative) Urine Urobilinogen (Negative) Ur Leukocyte Esterase (Negative) Salicylates (2.8-20) mg/dl Urine Opiates Screen (Neg) Ur Methadone, Qual (Neg) Acetaminophen (10-30) ug/ml Urine Barbiturates (Neg) Valproic Acid (50-100) mcg/ml Ur Phencyclidine (PCP) (Neg) U Amphetamin/Meth Scrn (Neg) MDMA (Ecstasy) Screen (Neg) U Benzodiazepines Scrn (Neg) Ur Cocaine Metabolite (Neg) U Marijuana (THC) Screen (Neg) Ethyl Alcohol mg/dL (0-3) mg/dl Imaging Data Radiologist's Impression: CT OF THE HEAD WITHOUT CONTRAST CLINICAL HISTORY: Fall/syncope. Left side head/neck injury COMPARISON STUDY: No previous studies for comparison. TECHNIQUE: Helical axial images of the head were obtained without IV contrast. Automated exposure control was utilized for the study. A dose lowering technique was utilized adhering to the principles of ALARA. FINDINGS: No acute intracranial hemorrhage, midline shift or mass effect is present. The ventricular system is unremarkable. The basilar cisterns are p atent. No extra-axial collections are present. There are no findings to suggest acute dural sinus thrombosis or acute territorial infarct. No significant calvarial abnormalities are present. Visualized portions of the sinuses and mastoid air cells are clear. IMPRESSION: 1. No acute intracranial findings. 2. No calvarial fracture. CT cervical spine wo con CLINICAL HISTORY: 55 years-old Female presenting with Fall/syncope. Left side head/neck injury. TECHNIQUE: Multidetector CT of the cervical spine was performed without the use of intravenous contrast. IV contrast: None. One or more dose lowering techniques were used consistent with the principles of ALARA (as low as reasonably achie vable), including automatic exposure control, mA or kV adjustment to individual patient size, and/or use of iterative reconstruction. COMPARISON: None. CT DOSE (mGy.cm): The estimated cumulative dose is 953.84 mGy.cm. 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 Normal cervical lordosis. Vertebral bodies maintain normal height and alignment. Mild intervertebral disc height loss diffusely. Trace disc osteophyte complex at C3-4. Evaluation of the soft tissues of the spinal canal demonstrates disc bulge at this level with mild spinal canal effacement. Mild degenerative changes of the atlantodental articulation. Trace facet arthropathy and uncovertebral hypertrophy. Mild osseous neural foraminal narrowing suggested at C3-4. Small lucent lesions extensively noted throughout the cervical spine vertebral bodies. These do not result in cortical breakthrough and are largely subcentimeter. No acute fracture or subluxation. Skull base intact. Paraspinal soft tissues within normal limits. IMPRESSION: 1. No acute fracture or subluxation. 2. Minimal degenerative change. 3. Multiple subcentimeter lucent lesions in the cervical vertebral bodies. These are nonspecific and are not convincingly on a degenerative basis. Please ensure the absence of underlying malignancy or lymphoproliferative disease. Consider outpatient follow-up contrast-enhanced MR of the cervical spine and/or oncology follow-up. The report will be called/faxed according to standard departmental protocol. ECG Data Attestation: I personally reviewed and interpreted this ECG as follows: Indication: + syncope Additional Comments: Normal sinus rhythm @72 bpm Diffuse Minor Nonspecific T wave abnormality Prolonged QT Abnormal ECG When compared with ECG of 26-MAY-2019 06:52, Nonspecific T wave abnormality now present QT has lengthened Prescription Drug Monitoring [place] Drug Monitoring Program reviewed and findings noted below Prescription Drug Findings: Multiple normal interval Xanax prescriptions MDM Narrative Physical exam and history were performed. Nursing notes, EMR, and Medication List were personally reviewed. Patient appears to have a syncopal/near syncopal episode tonight bring her to the ER. On examination she does not appear toxic and is answering questions appropriately. Much of her discomfort is along the left side head and left side neck. She does not seem to have other extremity discomfort. Of note, the pa tient does seem minimally altered, whether by alcohol, concussion, or other substance is to be seen. IV access was established and labs were obtained. The patient was hydrated with normal saline and given IV Tylenol for comfort. EKG was performed as above without acute ST elevation. Patient blood work is as above and was reviewed. She does not have a significantly elevated white blood cell count, gross anemia, bandemia, or significant electrolyte imbalance. Troponin x1 is negative. Urine is without evidence of infection, however drug abuse screen is positive for PCP and ecstasy, which may be false positives. Alcohol is negative. CT scans were reviewed by myself and radiology showing no acute process. An order was placed for continuous cardiac monitoring. The monitor shows a rate of 68 with normal sinus rhythm. The patient's initial examination was very reassuring, however nearly 2 hours into her ER visit I was called to the room by nursing. The patient was having a true tonic-clonic seizure. She was not responding to painful stimuli or verbal stimuli. She began frothing of the mouth. She was placed onto her left side and given 2 mg IM Ativan. We did place a nasal trumpet in the right side nares without complication. Suction was applied to clear the oropharynx and she was placed on nonrebreather. The patient remained with seizure-like activity for 6 to 7 minutes. We were able to keep her airway secure, and ultimately she did awaken. Overall the patient does not appear well for discharge home. She seems to had a syncopal episode tonight, and now has had a first seizure episode. [place] form DL 13 was completed and faxed. The patient certainly could be having benzodiazepine withdrawal seizures, however her symptoms could be related to abusing [id number] cough medicine (Coricidin). The patient was discussed with my attending as well as the on-call [facility] hospitalist. Please see their dictation for further patient course, plan, and disposition. The chart was completed utilizing [employer] Speech Voice Recognition Software. Grammatical errors, random word insertions, pronoun errors, and incomplete sentences are an occasional consequence of this system due to software limitations, ambient noise, and hardware issues. Any formal questions or concerns about the content, text, or information contained within the body of this dictation should be directly addressed to the provider for clarification. . Impression & Plan Altered mental status, Polysubstance overdose, Seizure, Syncope and collapse Discharge Plan Visit Data *Final* Discharge Date/Time: 03/16/20 08:06 Chief Complaint: Fall Stated Complaint: FALL/DIZZY ED Provider: Sveta James ED Midlevel Provider: Hong Taylor Discharge Problem: Altered mental status, Polysubstance overdose, Seizure, Syncope and collapse Patient Disposition: Admitted As Inpatient Discharge Instructions Interventions: ED Discharge Assessment Last Done: 03/16/20 08:06 Discharge Problem: Altered mental status Qualifiers: Altered mental status type: unspecified Qualified Code(s): R41.82 - Altered mental status, unspecified Polysubstance overdose Qualifiers: Encounter type: initial encounter Injury intent: undetermined intent Qualified Code(s): T50.904A - Poisoning by unspecified drugs, medicaments and biological substances, undetermined, initial encounter
[2020-03-16 06:15] LABS: Acetaminophen < 2 ug/ml (10-30); Salicylate < 1.7 mg/dl (2.8-20)
[2020-03-16 06:15] LABS: Appearance Urine Clear (Clear); Bilirubin Urine Negative (Negative); Blood Urine Negative (Negative); Color Urine Yellow; Glucose Urine UA Negative (Negative); Ketones Urine 1+ (Negative); Leukocyte Esterase Urine Negative (Negative); Nitrite Urine Negative (Negative); Protein Urine Negative (Negative); Specific Gravity Urine 1.018 (1.000-1.030); Urobilinogen Urine Negative (Negative); pH Urine 5.5 (4.5-7.5)
[2020-03-16 06:44] LABS: Amphetamines+Metham, Urine Neg (Neg); Barbiturates, Urine Neg (Neg); Benzodiazepine, Urine Neg (Neg); Cocaine, Urine Neg (Neg); MDMA (Ecstacy), Urine Pos (Neg); Methadone, Urine Neg (Neg); Opiate, Urine Neg (Neg); Phencyclidine, Urine Pos (Neg)
--- NOTE | 2020-03-16 06:50 | CT Scan Report ---
CT OF THE HEAD WITHOUT CONTRAST CLINICAL HISTORY: Fall/syncope. Left side head/neck injury COMPARISON STUDY: No previous studies for comparison. TECHNIQUE: Helical axial images of the head were obtained without IV contrast. Automated exposure con trol was utilized for the study. A dose lowering technique was utilized adhering to the principles o f ALARA. FINDINGS: No acute intracranial hemorrhage, midline shift or mass effect is present. The ventricular system is unremarkable. The basilar cisterns are patent. No extra-axial collections are present. Ther e are no findings to suggest acute dural sinus thrombosis or acute territorial infarct. No significan t calvarial abnormalities are present. Visualized portions of the sinuses and mastoid air cells are c lear. IMPRESSION: 1. No acute intracranial findings. 2. No calvarial fracture. ACT 112: Negative or not required by law. Electronically signed by: Damon English M.D. 03/16/2020 6:48 AM
[2020-03-16 07:09] LABS: Estimated Average Glucose 108 mg/dl; Hemoglobin A1C 5.4 % (4.5-5.6)
--- NOTE | 2020-03-16 07:16 | CT Scan Report ---
CT cervical spine wo con CLINICAL HISTORY: 55 years-old Female presenting with Fall/syncope. Left side head/neck injury. TECHNIQUE: Multidetector CT of the cervical spine was performed without the use of intravenous contra st. IV contrast: None. One or more dose lowering techniques were used consistent with the principles of ALARA (as low as reasonably achievable), including automatic exposure control, mA or kV adjustment to individual patient size, and/or use of iterative reconstruction. COMPARISON: None. CT DOSE (mGy.cm): The estimated cumulative dose is 953.84 mGy.cm. FINDINGS: Events Traffic Controller topogram: The patient is edentulous. Normal cervical lordosis. Vertebral bodies maintain normal height and alignment. Mild intervertebral disc height loss diffusely. Trace disc osteophyte complex at C3-4. Evaluation of the soft tissues of the spinal canal demonstrates disc bulge at this level with mild spinal canal effacement. Mild degene rative changes of the atlantodental articulation. Trace facet arthropathy and uncovertebral hypertrop hy. Mild osseous neural foraminal narrowing suggested at C3-4. Small lucent lesions extensively noted throughout the cervical spine vertebral bodies. These do not result in cortical breakthrough and are largely subcentimeter. No acute fracture or subluxation. Skull base intact. Paraspinal soft tissues within normal limits. IMPRESSION: 1. No acute fracture or subluxation. 2. Minimal degenerative change. 3. Multiple subcentimeter lucent lesions in the cervical vertebral bodies. These are nonspecific and are not convincingly on a degenerative basis. Please ensure the absence of underlying malignancy or lymphoproliferative disease. Consider outpatient follow-up contrast-enhanced MR of the cervical spine and/or oncology follow-up. The report will be called/faxed according to standard departmental protocol. The report will be called/faxed according to standard departmental protocol. ACT 112: Negative or not required by law. Electronically signed by: Ramana Guido M.D. 03/16/2020 7:15 AM
--- NOTE | 2020-03-16 07:17 | History & Physical Report ---
Date of Service March 16, 2020 Assessment & Plan (1) Seizure: ? Secondary to Coricidin abuse (chlorpheniramine and dextromethorphan documented to potentially cause seizures) ? Xanax withdrawal Possible syncopal event at home Seizure versus orthostasis versus cardiac dysfunction mood disorder, suboptimal past alcohol abuse as per records ongoing tobacco abuse Hyperglycemia rule out DM OBS Medical telemetry Seizure precautions, Ativan as needed EEG, MRI of the brain for seizure work-up Request AM provider to talk to Neurology regarding recommendations once work-up in. Patient strongly counseled about seizure potential from OTC Coricidin abuse. Orthostatic vitals, TTE for syncope work-up Hold home neuropsychotropic meds for now. Psych consult RE suboptimal bipolar disorder Nicotine patch PRN Check hemoglobin A1c DVT prophylaxis Lovenox subcu Full code Text document was generated using [email or web address] voice recognition software. It may contain grammatical or spelling errors. Kindly contact undersigned for clarification of any documentation item in question. History of Present Illness Chief Complaint: dizziness, fall Primary Care Provider: Victorina Dotson, History obtained from patient and records. Medical history significant for chronic back pain 2 to herniated disc as per patient, mood disorder, hyperlipidemia, GERD, past alcohol abuse as per records, ongoing tobacco abuse. Recent confinement November 2023 anaphylaxis secondary to Bactrim. Patient has not been taking her psych meds for more than a month now for unclear reasons. Admits to daily intake of OTC Coricidin (dextromethorphan plus chlorpheniramine components) cough syrup for over a year out to get high. Although her mood not the best, patient denies suicidality. Early this morning patient came out of the bathroom and began feeling woozy falling backwards and hitting her head. Not sure if she passed out. Denies chest pain, S OB. Nausea and emesis post incident. No witnessed seizures/incontinence at home as per patient. No headache. Mild neck pain. Patient brought to the ER for evaluation. At the ER, generalized tonic-clonic seizure episode witnessed by staff. No prior episodes as per patient. MEDICAL HISTORY: As above. SURGERIES: She has had cholecystostomy, partial hysterectomy, bladder sling procedure , knee surgery. FAMILY HISTORY: Hypertension. Parkinson's disease; no seizure disorder PERSONAL AND SOCIAL HISTORY: 1 pack daily. 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 Allergies Allergy/AdvReac Type Severity Reaction Status Date / Time buprenorphine [From Subutex] Allergy Severe Anaphylaxis Verified 03/16/20 04:27 latex Allergy Severe ANAPHYLAXIS Verified 03/16/20 04:27 sulfamethoxazole Allergy Severe Anaphylaxis Verified 03/16/20 04:27 [From Bactrim] trimethoprim [From Bactrim] Allergy Severe Anaphylaxis Verified 03/16/20 04:27 prochlorperazine AdvReac Intermediate dystonic Verified 03/16/20 04:27 [From Compazine] reaction Home Medications Home Medications Medication Instructions Recorded Confirmed Type bupropion HCl 300 mg PO QAM 02/25/19 03/16/20 History divalproex 500 mg PO BID 02/25/19 03/16/20 History trazodone 150 mg PO HS 02/25/19 03/16/20 History dicyclomine 20 mg PO Q6 04/12/19 03/16/20 History alprazolam [Xanax] 0.5 mg PO TID PRN 12/09/19 03/16/20 History cetirizine 10 mg PO QAM 14 Days #14 tab 12/11/19 03/16/20 Rx epinephrine [EpiPen 2-Julian] 0.3 mg IM UD PRN #2 ea 12/11/19 03/16/20 Rx Clove Oil 1 dose TOPICAL DIRECTED 01/08/20 03/16/20 History L.acid,anum,rham-B.bifid,long 250 cap PO BID 01/08/20 03/16/20 History [Digestive Probiotic] acetaminophen [Tylenol Extra 1,000 mg PO QID PRN 01/08/20 03/16/20 History Strength] ibuprofen 600 mg PO Q6H PRN 01/08/20 03/16/20 History lidocaine HCl [Lidocaine Viscous] 2 % PO DIRECTED PRN 01/08/20 03/16/20 History gabapentin 600 mg tablet 600 mg PO QID #120 tab 03/07/20 03/16/20 Rx atorvastatin 10 mg PO DAILY 03/16/20 03/16/20 History citalopram [Celexa] 10 mg PO BID 03/16/20 03/16/20 History clonidine HCl 0.1 mg PO BID 03/16/20 03/16/20 History diphenhydramine HCl [Benadryl] 25 mg PO Q6 PRN 03/16/20 03/16/20 History hydroxyzine pamoate 25 mg PO TID PRN 03/16/20 03/16/20 History omeprazole 20 mg PO DAILY 03/16/20 03/16/20 History sucralfate 1 g PO BID 03/16/20 03/16/20 History Past Med/Surg History Medical History (Updated 03/16/20 @ 08:16 by Isra Arceo MD) Anxiety Bipolar disorder Chronic back pain Depression Encounter for pre-operative examination GERD (gastroesophageal reflux disease) CONTROLLED Hiatal hernia History of ovarian cyst Hyperlipidemia IBS (irritable bowel syndrome) Migraines Osteoarthritis Post-traumatic osteoarthritis of right knee Right knee injury (Acute) Temporomandibular joint disorder Surgical History (Updated 03/07/20 @ 15:37 by Enzo Conroy PA-C) H/O arthroscopic knee surgery History of arthroscopic knee surgery B/L History of bladder repair surgery REPAIR 2/2 INJURY WITH HYSTER, + MESH X2 History of cholecystectomy History of colonoscopy History of esophagogastroduodenoscopy (EGD) History of open reduction and internal fixation (ORIF) procedure S/P RIGHT FIBULA ORIF History of ovarian cystectomy History of partial hysterectomy History of surgery COLPORRHAPHY History of tooth extraction History of total knee replacement Hx of cholecystectomy Social History Preferred Language: Belarusian Communication Ability: Effective L[place] Required: No Beliefs That Will Affect Care: None marital status: Single Current Living Situation: Alone current occupational status: employed Other Information That Helps Us Care for You: No Feels Safe at Home: Yes Safety Concerns: Feels Safe At This Time Smoking Status: Current every day smoker Tobacco Type: cigarettes ; Cigarettes Per Day: 5 ; Do You Dip or Chew Tobacco: No ; Second Hand Exposure: No ; Tobacco Cessation Education Requested by Patient: No Hx Alcohol Use: No Hx Substance Use: Yes substance use type: opiates and other Substance Use Type Other:: coricidin, history of opiate abuse Last Used Substance: Unknown Review of Systems Review of Systems: As per HPI, all 10 systems reviewed, all other ROS negative Physical Exam Physical Exam: GENERAL: Slightly anxious, depressed mood, no respiratory distress SKIN: Normal color, warm HEENT: [place] palpebral conjunctivae, no ptosis, dry buccal mucosa, edentulous NECK : Mild limitation in neck motion , no tenderness CHEST : CTA, no tenderness HEART : Tachycardic , no obvious murmurs ABDOMEN: Some distention, nontender EXTREMITIES : No LE swelling/tenderness, no other conspicuous deformities noted NEUROLOGIC : Coherent, no facial asymmetry, no other gross focality Results & Data Results & Data ([facility]) Vital Signs (Past 12 Hours) Vital Signs Temp Pulse Pulse Resp BP BP Pulse Ox 03/16/20 06:47 103 H 18 137/81 98 03/16/20 06:31 109 H 18 140/89 100 03/16/20 06:00 109 H 21 132/87 100 03/16/20 05:30 69 22 130/77 100 03/16/20 04:17 95 03/16/20 04:04 36.5 C 82 20 138/85 98 Laboratory Results Laboratory Results WBC 10.58 K/uL (4.8-10.8) 03/16/20 04:00 RBC 4.83 M/uL (4.2-5.4) 03/16/20 04:00 Hgb 14.4 g/dL (12.0-16.0) 03/16/20 04:00 Hct 43.0 % (37-47) 03/16/20 04:00 MCV 89.0 fL (80-100) 03/16/20 04:00 MCH 29.8 pg (25-34) 03/16/20 04:00 MCHC 33.5 g/dL (32-36) 03/16/20 04:00 RDW Std Deviation 47.6 fL (36.4-46.3) H 03/16/20 04:00 RDW Coeff of Ace 14.5 % (11.5-14.5) 03/16/20 04:00 Plt Count 347 K/uL (130-400) 03/16/20 04:00 MPV 9.8 fL (7.4-10.4) 03/16/20 04:00 Immature Gran % (Auto) 0.3 % 03/16/20 04:00 Neut % (Auto) 75.4 % 03/16/20 04:00 Lymph % (Auto) 19.8 % 03/16/20 04:00 Roberts % (Auto) 3.8 % 03/16/20 04:00 Eos % (Auto) 0.5 % 03/16/20 04:00 Baso % (Auto) 0.2 % 03/16/20 04:00 Immature Gran # (Auto) 0.03 K/uL (0.00-0.02) H 03/16/20 04:00 Neut # (Auto) 7.99 K/uL (1.4-6.5) H 03/16/20 04:00 Lymph # (Auto) 2.09 K/uL (1.2-3.4) 03/16/20 04:00 Roberts # (Auto) 0.40 K/uL (0.11-0.59) 03/16/20 04:00 Eos # (Auto) 0.05 K/uL (0-0.5) 03/16/20 04:00 Baso # (Auto) 0.02 K/uL (0-0.2) 03/16/20 04:00 PT 10.4 Seconds (9.0-12.0) 03/16/20 04:00 INR 1.0 (0.9-1.1) 03/16/20 04:00 APTT 24.0 Seconds (21.0-31.0) 03/16/20 04:00 PTT Ratio 0.9 03/16/20 04:00 Sodium 139 mmol/L (136-145) 03/16/20 04:00 Potassium 3.8 mmol/L (3.5-5.1) 03/16/20 04:00 Chloride 107 mmol/L (98-107) 03/16/20 04:00 Carbon Dioxide 23 mmol/L (21-32) 03/16/20 04:00 Anion Gap 9.0 (3-11) 03/16/20 04:00 BUN 11 mg/dl (7-18) 03/16/20 04:00 Creatinine 0.95 mg/dl (0.6-1.2) 03/16/20 04:00 Est Cr Clr Drug Dosing 79.6 ml/min 03/16/20 04:00 Est GFR ( Amer) 79.3 03/16/20 04:00 Est GFR (Non-Af Amer) 68.4 03/16/20 04:00 BUN/Creatinine Ratio 12.0 (10-20) 03/16/20 04:00 Glucose 176 mg/dl (70-99) H 03/16/20 04:00 Estimat Average Glucose 108 mg/dl 03/16/20 04:00 Hemoglobin A1c 5.4 % (4.5-5.6) 03/16/20 04:00 Calcium 9.3 mg/dl (8.5-10.1) 03/16/20 04:00 Magnesium 2.1 mg/dl (1.8-2.4) 03/16/20 04:00 Total Bilirubin 0.5 mg/dl (0.2-1) 03/16/20 04:00 AST 16 U/L (15-37) 03/16/20 04:00 ALT 25 U/L (12-78) 03/16/20 04:00 Alkaline Phosphatase 171 U/L (45-117) H 03/16/20 04:00 Troponin I < 0.015 ng/ml (0-0.045) 03/16/20 04:00 Total Protein 7.7 gm/dl (6.4-8.2) 03/16/20 04:00 Albumin 3.9 gm/dl (3.4-5.0) 03/16/20 04:00 Globulin 3.8 gm/dl (2.5-4.0) 03/16/20 04:00 Albumin/Globulin Ratio 1.0 (0.9-2) 03/16/20 04:00 Urine Color Yellow 03/16/20 05:40 Urine Appearance Clear (Clear) 03/16/20 05:40 Urine pH 5.5 (4.5-7.5) 03/16/20 05:40 Ur Specific Roll[place] 1.018 (1.000-1.030) 03/16/20 05:40 Urine Protein Negative (Negative) 03/16/20 05:40 Urine Glucose (UA) Negative (Negative) 03/16/20 05:40 Urine Ketones 1+ (Negative) H 03/16/20 05:40 Urine Blood Negative (Negative) 03/16/20 05:40 Urine Nitrite Negative (Negative) 03/16/20 05:40 Urine Bilirubin Negative (Negative) 03/16/20 05:40 Urine Urobilinogen Negative (Negative) 03/16/20 05:40 Ur Leukocyte Esterase Negative (Negative) 03/16/20 05:40 Salicylates < 1.7 mg/dl (2.8-20) L 03/16/20 04:00 Urine Opiates Screen Neg (Neg) 03/16/20 05:40 Ur Methadone, Qual Neg (Neg) 03/16/20 05:40 Acetaminophen < 2 ug/ml (10-30) L 03/16/20 04:00 Urine Barbiturates Neg (Neg) 03/16/20 05:40 Valproic Acid < 3 mcg/ml (50-100) L 03/16/20 04:00 Ur Phencyclidine (PCP) Pos (Neg) H 03/16/20 05:40 U Amphetamin/Meth Scrn Neg (Neg) 03/16/20 05:40 MDMA (Ecstasy) Screen Pos (Neg) H 03/16/20 05:40 U Benzodiazepines Scrn Neg (Neg) 03/16/20 05:40 Ur Cocaine Metabolite Neg (Neg) 03/16/20 05:40 U Marijuana (THC) Screen Neg (Neg) 03/16/20 05:40 Ethyl Alcohol mg/dL < 3.0 mg/dl (0-3) 03/16/20 04:[address] head initial read: No ICH, mass-effect or edema. No evidence of acute cortical stroke. CT cervical spine initial read: No evidence of fracture or malalignment. EKG as per my interpretation rate 70, NSR, normal axis, diffuse T wave flattening over the chest leads
[2020-03-16] MEDS ORDERED: ACETAMINOPHEN 325 MG TAB PO PRN (08:21)
[2020-03-16] MEDS ORDERED: LORazepam 1 MG/2 ML VIAL IV PRN (08:21)
[2020-03-16] MEDS ORDERED: LACTATED RINGER'S 1,000 ML IV ONE (08:21)
--- NOTE | 2020-03-16 08:59 | Electrocardiogram Report ---
Test Reason : Blood Pressure : / mmHG Vent. Rate : 072 BPM Atrial Rate : 072 BPM P-R Int : 128 ms QRS Dur : 092 ms QT Int : 468 ms P-R-T Axes : 048 035 039 degrees QTc Int : 512 ms Normal sinus rhythm Diffuse Minor Nonspecific T wave abnormality Prolonged QT Abnormal ECG When compared with ECG of 26-MAY-2019 06:52, Nonspecific T wave abnormality now present QT has lengthened Confirmed by Bobby Kay ([id number]) on 03/16/2020 8:59:03 AM Referred By: REFERRED SELF Confirmed By:Bobby Kay
[2020-03-16] MEDS ORDERED: ENOXAPARIN INJ 30 MG/0.3 ML SYR SQ SCH (09:00)
[2020-03-16] MEDS: PROMETHAZINE HCL 12.5 MG in SODIUM CHLORIDE 0.9% 50 ML IV PRN ×3 (10:09→22:30)
[2020-03-16] MEDS: CETIRIZINE HCL 10 MG TABLET PO SCH (10:10)
[2020-03-16] MEDS: PANTOprazole 40 MG TAB PO SCH (10:10)
[2020-03-16] MEDS: SUCRALFATE 1 GM TAB PO SCH ×2 (10:10→20:35)
[2020-03-16] MEDS: ATORVASTATIN 10 MG TAB PO SCH (10:10)
[2020-03-16] MEDS: D5NSS + 20MEQ KCL 20 MEQ/1,000 ML BAG IV SCH ×2 (10:30→22:00)
--- NOTE | 2020-03-16 11:25 | Communication Note ---
Date of Service: March 16, 2020 55 year old female with history of Chronic Back Pain, Mood disorder, Smoking, Alcoholism, GERD, presenting s/p Fall at home, GTC seizure at the ER. chart reviewed patient seen and examined at bedside, BETTY Colon at bedside patient was vomiting, yellow liquid feels anxious, "i feel like the seizure is coming again" alert, oriented x 3, calm, cooperative denies headache, chest pain, dyspnea, abdominal pain denies suicidal ideation, but when asked have you been feeling depressed lately, she replied "i cannot even answer that question right now" clear breath sounds bilaterally abdomen soft, non distended, good BS no gross focal neuro deficit A/P> New onset seizure - possible drug withdrawal- from Corcidin Psych meds? although patient reports she last took her Psych meds 3 weeks ago - MRI pending CT head unrevealing - EEG pending - electrolytes ok - Neurologist consulted Seizure precautions Syncope - echo pending EKG qT 512 repeat EKG in AM Orthostatic VS - PT/OT eval Drug Abuse - admits to taking Corcidin cough syrup "to relax" stopped taking usual psych meds 3 weeks ago - denies suicidal ideation - Psych consulted Abnormal Cervical spine CT - will need cervical MRI with contrast once more stable other diagnoses and plan of care as per Dr. Arceo's notes Dejan Jackson MD
--- NOTE | 2020-03-16 12:46 | Neurology Consultation ---
Date of Consultation March 16, 2020 Assessment & Plan (1) Seizure: A 55 year old woman with extensive psychiatric history including alcohol use, polysubstance abuse, and bipolar mood disorder witnessed to have seizure like activity in the ED. She has no prior history of seizure. Differential di agnosis certainly includes symptomatic seizure secondary to polysubstance abuse Vs PNES. Patient is non compliant with psychiatric medication and chooses not to take them. I would not recommend starting a seizure medication although her home medications include Depakote 500 mg daily. EEG reviewed and limited due to movement artifact but no epileptiform discharges noted. Patient did not tolerate MRI brain. Agree with psychiatry and advising patient to avoid Wellbutrin. Recommend outpatient psychiatry follow up. History of Present Illness Reason for Consultation: Seizure Attending Physician: Dejan Jackson MD History of Present Illness A 55 year old woman with history of bipolar mood disorder and polysubstance abuse with witnessed seizure like activity. She does have a past alcohol abuse as per records, ongoing tobacco abuse. Recent confinement November 2019. Patient has not been taking her psych meds for robinson has been abusing OTC Coricidin (dextromethorphan plus chlorpheniramine components) for over a year out to get high. Early this morning patient came out of the bathroom and began feeling woozy falling backwards and hitting her head. No know LOC. In the ER, generalized tonic-clonic seizure episode witnessed by staff. No prior episodes as per patient. Allergies Allergy/AdvReac Type Severity Reaction Status Date / Time buprenorphine [From Subutex] Allergy Severe Anaphylaxis Verified 03/16/20 04:27 latex Allergy Severe ANAPHYLAXIS Verified 03/16/20 04:27 sulfamethoxazole Allergy Severe Anaphylaxis Verified 03/16/20 04:27 [From Bactrim] trimethoprim [From Bactrim] Allergy Severe Anaphylaxis Verified 03/16/20 04:27 prochlorperazine AdvReac Intermediate dystonic Verified 03/16/20 04:27 [From Compazine] reaction Home Medications Home Medications Medication Instructions Recorded Confirmed Type bupropion HCl 300 mg PO QAM 02/25/19 03/16/20 History divalproex 500 mg PO BID 02/25/19 03/16/20 History trazodone 150 mg PO HS 02/25/19 03/16/20 History dicyclomine 20 mg PO Q6 04/12/19 03/16/20 History alprazolam [Xanax] 0.5 mg PO TID PRN 12/09/19 03/16/20 History cetirizine 10 mg PO QAM 14 Days #14 tab 12/11/19 03/16/20 Rx epinephrine [EpiPen 2-Julian] 0.3 mg IM UD PRN #2 ea 12/11/19 03/16/20 Rx Clove Oil 1 dose TOPICAL DIRECTED 01/08/20 03/16/20 History L.acid,anum,rham-B.bifid,long 250 cap PO BID 01/08/20 03/16/20 History [Digestive Probiotic] acetaminophen [Tylenol Extra 1,000 mg PO QID PRN 01/08/20 03/16/20 History Strength] ibuprofen 600 mg PO Q6H PRN 01/08/20 03/16/20 History lidocaine HCl [Lidocaine Viscous] 2 % PO DIRECTED PRN 01/08/20 03/16/20 History gabapentin 600 mg tablet 600 mg PO QID #120 tab 03/07/20 03/16/20 Rx atorvastatin 10 mg PO DAILY 03/16/20 03/16/20 History citalopram [Celexa] 10 mg PO BID 03/16/20 03/16/20 History clonidine HCl 0.1 mg PO BID 03/16/20 03/16/20 History diphenhydramine HCl [Benadryl] 25 mg PO Q6 PRN 03/16/20 03/16/20 History hydroxyzine pamoate 25 mg PO TID PRN 03/16/20 03/16/20 History omeprazole 20 mg PO DAILY 03/16/20 03/16/20 History sucralfate 1 g PO BID 03/16/20 03/16/20 History Patient History Medical History Anxiety Bipolar disorder Chronic back pain Depression Encounter for pre-operative examination GERD (gastroesophageal reflux disease) CONTROLLED Hiatal hernia History of ovarian cyst Hyperlipidemia IBS (irritable bowel syndrome) Migraines Osteoarthritis Post-traumatic osteoarthritis of right knee Right knee injury (Acute) Temporomandibular joint disorder Surgical History H/O arthroscopic knee surgery History of arthroscopic knee surgery B/L History of bladder repair surgery REPAIR 2/2 INJURY WITH HYSTER, + MESH X2 History of cholecystectomy History of colonoscopy History of esophagogastroduodenoscopy (EGD) History of open reduction and internal fixation (ORIF) procedure S/P RIGHT FIBULA ORIF History of ovarian cystectomy History of partial hysterectomy History of surgery COLPORRHAPHY History of tooth extraction History of total knee replacement Hx of cholecystectomy Family History Mother Parkinsons disease Father Prostate cancer Grandmother (Maternal) Coronary heart disease Grandfather (Maternal) Coronary heart disease Social History Preferred Language: Greek Communication Ability: Effective 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 Beliefs That Will Affect Care: None marital status: Single Current Living Situation: Alone current occupational status: employed Other Information That Helps Us Care for You: No Feels Safe at Home: Yes Safety Concerns: Feels Safe At This Time Smoking Status: Current every day smoker Tobacco Type: cigarettes ; Cigarettes Per Day: 5 ; Do You Dip or Chew Tobacco: No ; Second Hand Exposure: No ; Tobacco Cessation Education Requested by Patient: No Hx Alcohol Use: No Hx Substance Use: Yes substance use type: opiates and other Substance Use Type Other:: coricidin, history of opiate abuse Last Used Substance: Unknown Physical Exam Physical Exam: Examine: Patient appears anxious and restless. Speech is clear although fast. EOMI. No nystmgas. No tremor or myoclonic jerks noted. tongue midline with no abrasion. face symmetric. No ataxia with finger to nose testng. Comprehension is intact and she can repeat. Results & Data Vital Signs (Past 12 Hours) Vital Signs Temp Pulse Pulse Resp BP BP Pulse Ox 03/16/20 11:09 36.8 C 86 18 113/68 96 03/16/20 09:40 86 03/16/20 08:21 36.6 C 87 18 137/78 94 03/16/20 08:06 95 H 20 132/78 95 03/16/20 07:33 94 H 16 130/80 96 03/16/20 06:47 103 H 18 137/81 98 03/16/20 06:31 109 H 18 140/89 100 03/16/20 06:00 109 H 21 132/87 100 03/16/20 05:30 69 22 130/77 100 03/16/20 04:17 95 03/16/20 04:04 36.5 C 82 20 138/85 98 Pulse Ox 03/16/20 11:09 03/16/20 09:40 03/16/20 08:21 94 03/16/20 08:06 03/16/20 07:33 03/16/20 06:47 03/16/20 06:31 03/16/20 06:00 03/16/20 05:30 03/16/20 04:17 03/16/20 04:[address] Head: Normal
[2020-03-16] MEDS: LORazepam 0.5 MG/1 ML VIAL IV PRN ×2 (14:35→22:42)
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
[2020-03-16] MEDS ORDERED: GADOBUTROL 65ML VIAL IV PRN (16:34)
--- NOTE | 2020-03-16 16:56 | Magnetic Resonance Report ---
Study: Limited MRI brain HISTORY: Mental status change. FINDINGS: Very limited study as the patient was unable to complete the exam. Diffusion-weighted images show no evidence for an acute ischemic process. The ventricular system is midline. Coronal images show unremarkable signal characteristics throughout. Patient was unable to tolerate contrast administration. No gross abnormality is identified within this limited study. IMPRESSION: Limited study showing no gross abnormality. Electronically signed by: Thierno Sims M.D. 03/16/2020 4:55 PM
[2020-03-17 05:48] LABS: Basophils # (auto) 0.01 K/uL (0-0.2); Basophils % (auto) 0.1 %; Eosinophils # (auto) 0.08 K/uL (0-0.5); Eosinophils % (auto) 1.1 %; Hematocrit (blood only) 39.5 % (37-47); Hemoglobin 12.8 g/dL (12.0-16.0); Lymphocytes # (auto) 1.94 K/uL (1.2-3.4); Lymphocytes % (auto) 26.7 %; Mean Corpuscular Hemoglobin 29.7 pg (25-34); Mean Corpuscular Hgb Conc 32.4 g/dL (32-36); Mean Corpuscular Volume 91.6 fL (80-100); Mean Platelet Volume 9.2 fL (7.4-10.4); Monocytes # (auto) 0.39 K/uL (0.11-0.59); Monocytes % (auto) 5.4 %; Neutrophils # (auto) 4.84 K/uL (1.4-6.5); Neutrophils % (auto) 66.7 %; Platelet Count 272 K/uL (130-400); RDW Coefficient of Variation 14.8 % (11.5-14.5); RDW Standard Deviation 50.2 fL (36.4-46.3); Red Blood Count 4.31 M/uL (4.2-5.4); White Blood Count 7.26 K/uL (4.8-10.8)
[2020-03-17] MEDS: D5NSS + 20MEQ KCL 20 MEQ/1,000 ML BAG IV SCH ×3 (06:14→22:04)
[2020-03-17 06:24] LABS: BUN Creatinine Ratio 11.1 (10-20); Calcium 8.7 mg/dl (8.5-10.1); Creatinine Clr Calc Pharmacy 120.1 ml/min; Est GFR (African American) 118.7; Est GFR (Non-African American) 102.4; Magnesium 2.2 mg/dl (1.8-2.4); Potassium 3.6 mmol/L (3.5-5.1)
[2020-03-17] MEDS ORDERED: POTASSIUM CHLORIDE 20 MEQ TABCR PO ONE (07:15)
[2020-03-17] MEDS: CETIRIZINE HCL 10 MG TABLET PO SCH (07:31)
[2020-03-17] MEDS: PANTOprazole 40 MG TAB PO SCH (07:31)
[2020-03-17] MEDS: ATORVASTATIN 10 MG TAB PO SCH (07:31)
[2020-03-17] MEDS: SUCRALFATE 1 GM TAB PO SCH ×2 (07:32→21:20)
--- NOTE | 2020-03-17 10:02 | Electroencephalogram ---
EEG Procedure Note Date of Service March 17, 2020 Start / End Times Start Time: 19:15 End Time: 19:[address] Jaren Morales History A 55 year old woman with new onset seizure like activity. EEG performed for evaluation of epileptiform activity. Home Medication List Home Medications Medication Instructions Recorded Confirmed Type cetirizine 10 mg PO QAM 14 Days #14 tab 12/11/19 03/16/20 Rx epinephrine [EpiPen 2-Julian] 0.3 mg IM UD PRN #2 ea 12/11/19 03/16/20 Rx Clove Oil 1 dose TOPICAL DIRECTED 01/08/20 03/16/20 History Digestive Probiotic 250 cap PO BID 01/08/20 03/16/20 History Lidocaine Viscous 2 % PO DIRECTED PRN 01/08/20 03/16/20 History ibuprofen 600 mg PO Q6H PRN 01/08/20 03/16/20 History atorvastatin 10 mg PO DAILY 03/16/20 03/16/20 History hydroxyzine pamoate 25 mg PO TID PRN 03/16/20 03/16/20 History omeprazole 20 mg PO DAILY 03/16/20 03/16/20 History sucralfate 1 g PO BID 03/16/20 03/16/20 History acetaminophen [Tylenol Extra 1,000 mg PO TID PRN #0 tab 03/18/20 03/16/20 Rx Strength] Inpatient Medication List Atorvastatin Calcium (Lipitor) 10 mg PO DAILY [facility] Stop: 04/15/20 08:59 Last Admin: 03/17/20 07:31 Dose: 10 mg Documented by: [id number] Admin: 03/16/20 10:10 Dose: Not Given Documented by: [id number] Cetirizine HCl (Zyrtec) 10 mg PO QAM [facility] Stop: 04/15/20 08:59 Last Admin: 03/17/20 07:31 Dose: 10 mg Documented by: [id number] Admin: 03/16/20 10:10 Dose: Not Given Documented by: [id number] Gadobutrol (Gadavist 65ml) 8.5 ml IV ONCE PRN PRN Reason: Interaction Checking Stop: 03/20/20 16:33 Last Admin: 03/16/20 16:35 Dose: 8.5 ml Documented by: [id number] Lorazepam (Ativan) 1 mg in 2 mls @ 0.5 mls/min IV Q10M PRN PRN Reason: seizures Stop: 04/15/20 08:20 Last Admin: 03/16/20 10:08 Dose: 0.5 mls/min Documented by: [id number] Promethazine HCl 12.5 mg/ (Sodium Chloride) 50.5 mls @ 202 mls/hr IV Q6H PRN PRN Reason: Nausea And Vomiting Stop: 04/15/20 08:20 Last Infusion: 03/16/20 22:48 Dose: 0 mls/hr Documented by: [id number] Admin: 03/16/20 22:30 Dose: 202 mls/hr Documented by: [id number] Infusion: 03/16/20 15:58 Dose: 0 mls/hr Documented by: [id number] Admin: 03/16/20 15:37 Dose: 202 mls/hr Documented by: [id number] Infusion: 03/16/20 10:27 Dose: 0 mls/hr Documented by: [id number] Admin: 03/16/20 10:09 Dose: 202 mls/hr Documented by: [id number] Potassium Chloride/Dextrose/Sod Cl (D5nss + 20meq Kcl) 20 meq in 1,000 mls @ 125 mls/hr IV .Q8H [facility] Stop: 04/15/20 10:29 Last Admin: 03/17/20 06:14 Dose: 125 mls/hr Documented by: [id number] Infusion: 03/17/20 06:14 Dose: 125 mls/hr Documented by: [id number] Infusion: 03/16/20 22:47 Dose: 125 mls/hr Documented by: [id number] Infusion: 03/16/20 22:30 Dose: 0 mls/hr Documented by: [id number] Admin: 03/16/20 22:00 Dose: 125 mls/hr Documented by: [id number] Infusion: 03/16/20 22:00 Dose: 125 mls/hr Documented by: [id number] Infusion: 03/16/20 19:07 Dose: 125 mls/hr Documented by: [id number] Infusion: 03/16/20 14:59 Dose: 0 mls/hr Documented by: [id number] Admin: 03/16/20 10:30 Dose: 125 mls/hr Documented by: [id number] Lorazepam (Ativan) 0.5 mg in 1 mls @ 1 mls/min IV Q4H PRN PRN Reason: Anxiety/Agitation Stop: 04/15/20 12:36 Last Admin: 03/16/20 22:42 Dose: 1 mls/min Documented by: [id number] Admin: 03/16/20 14:35 Dose: 1 mls/min Documented by: [id number] Pantoprazole Sodium (Protonix) 40 mg PO DAILY [facility] Stop: 04/15/20 08:59 Last Admin: 03/17/20 07:31 Dose: 40 mg Documented by: [id number] Admin: 03/16/20 10:10 Dose: Not Given Documented by: [id number] Sucralfate (Carafate Tab) 1 gm PO BID [facility] Stop: 04/15/20 08:59 Last Admin: 03/17/20 07:32 Dose: 1 gm Documented by: [id number] Admin: 03/16/20 20:35 Dose: 1 gm Documented by: [id number] Admin: 03/16/20 10:10 Dose: Not Given Documented by: [id number] Discontinued Medications Enoxaparin Sodium (Lovenox) 30 mg SQ QAM [facility] Stop: 04/15/20 08:59 Last Admin: 03/16/20 10:10 Dose: Not Given Documented by: [id number] Sodium Chloride (Nss 1000ml) 1,000 mls @ 999 mls/hr IV .Q1H1M [facility] Stop: 03/16/20 05:15 Last Infusion: 03/16/20 05:32 Dose: 0 mls/hr Documented by: [id number] Admin: 03/16/20 04:18 Dose: 999 mls/hr Documented by: [id number] Acetaminophen (Ofirmev) 1,000 mg in 100 mls @ 400 mls/hr IV NOW STA Stop: 03/16/20 04:25 Last Infusion: 03/16/20 04:57 Dose: 0 mls/hr Documented by: [id number] Admin: 03/16/20 04:18 Dose: 400 mls/hr Documented by: [id number] Lactated Ringer's (Lr) 1,000 mls @ 80 mls/hr IV .[id number] ONE Stop: 03/16/20 20:50 Last Infusion: 03/16/20 10:10 Dose: 0 mls/hr Documented by: [id number] Admin: 03/16/20 09:14 Dose: 80 mls/hr Documented by: [id number] Lorazepam (Ativan) Confirm Administered Dose 2 mg .ROUTE .STK-MED ONE Stop: 03/16/20 05:53 Last Admin: 03/16/20 05:55 Dose: 2 mg Documented by: [id number] Ondansetron HCl (Zofran) 4 mg IV NOW STA Stop: 03/16/20 05:06 Last Admin: 03/16/20 05:45 Dose: 4 mg Documented by: [id number] Potassium Chloride (Klor-Con M20) 40 meq PO ONE ONE Stop: 03/17/20 07:16 Last Admin: 03/17/20 07:31 Dose: 40 meq Documented by: [id number] Description This is a 21 electrode EEG with a single channel dedicated to limited EKG. The electrodes were placed in accordance with the International 10-20 system. REPORT: At the onset of the EEG the patient is awake. The posterior dominant rhythm is 9-10 Hz. Anteriorly there is a low amplitude beta frequencies with preserved anterior to posterior gradient. There is intermittent generalized polymorphic 3-5 Hz theta delta activity intermixed with significant myogenic or movement artifact. No stage II sleep transients are noted. Photic stimulation does not ilicit any abnormalities. IMPRESSION: This is an abnormal routine EEG due to intermittent background slowing suggestive of a mild non specific encephalopathy. No epileptiform discharges are recorded.
--- NOTE | 2020-03-17 10:10 | Psychiatric Progress Note ---
Date of Service March 17, 2020 Impression / Recommendations Impression Supervising psychiatrists have been directly involved in review and discussion of the patient's case and have participated in medical decision making regarding treatment recommendations. RECOMMENDATIONS: 03/16 - Medical treatment per primary team and neurology for seizure and recent abuse of DXM from OTC Coricidin and possible alprazolam withdrawal - Pt does endorse a historical diagnosis of bipolar disorder, but states the diagnosis "ebbs and flows" correlating with her substance use. Pt does not feel that this diagnosis is appropriate for her, and therefore admits she has not been taking many of her psychiatric medications recently. It is quite possible that her behavior when under the influence of substances mimics that of a manic/hypomanic episodes - however, not able to evaluate this in detail at time of this assessment. Will request patient sign an RELL for Dr. Cisse in order to obtain records and her most recent medication list. - Additional conversation with patient will be helpful in order to determine if resuming psychotropic medications will be suggested. Valproic acid and lamotrigine are certainly anticonvulsant options that also function as mood stabilization agents. Unable to thoroughly evaluate or discuss these options with the patient at time of initial encounter. - Would not suggest resuming bupropion on citalopram at this time, as these medication may lower the seizure threshold and place patient at higher risk of subsequent seizures. - No indication at this time for psychiatric admission, as patient is denying SI/HI, and is not presenting as manic or psychotic. Substance abuse treatment should be explored. - Will attempt to revisit patient when she is better able to participate in full evaluation. Until that time, patient has denied any acute psychiatric needs. - Please reach out to our service with any additional questions or updates. 03/17 - Pt reports a long history of addiction and substance abuse which she feels have largely contributed to variations in mood. - Pt states the only psychiatric medications she had been taking prior to her hospitalization were: hydroxyzine 25mg TID prn, trazodone 150mg qHS prn, and c lonidine 0.1m BID prn. Pt states that she has not consumed alprazolam in several weeks, as she ran out of her prescription early and then reports requesting to stop the medication during her most recent psychiatric follow-up appointment. - Psychiatrically, it would be reasonable to resume hydroxyzine and trazodone as needed for anxiety and sleep when deemed appropriate by patient's primary team. - Although utilization of gabapentin may be beneficial for managing impulsivity related to the patient's addiction history (also for mood stability - though patient does not identify with a bipolar disorder diagnosis); patient declines to resume this medication as she is aware of is abuse potential and does not trust herself to utilize the medication appropriately after she is discharged. Interval History Identifying Information 55-year-old female admitted medically on 03/16/2020 after presenting to the ED s/p possible syncopal episode. It is reported that patient had a witnessed seizure while in the ED. Pt admits to recent abuse of DXM from OTC Coricidin. Psychiatric consultation was requested as the patient has a reported history of bipolar disorder, but admits she has not been taking psychiatric medications as prescribed. Initial consultation was attempted on 03/16/2020; however, participation from the patient was limited secondary to acute vomiting. She is seen today for follow-up. Chief Complaint "Physically, I'm feeling better today." Review of Systems Notes Constitutional: reports fatigue, broken sleep while in the hospital Cardiovascular: denied Respiratory: denied Gastrointestinal: reports improvement in nausea/vomiting Neurological: denied Psychiatric: denies symptoms other than stated above Total of at least 10 systems reviewed, pertinent positives as above and in HPI. Subjective Subjective Patient's case was reviewed and discussed during morning report with supervising psychiatrist and psychiatric nurse liaison. Follow-up visit occurred today, as patient was too physically ill to participate in extensive conversation yesterday. Pt states that she is feeling a bit better today. In attempts to confirm the psychotropic medications she was taking prior to admission, she reports only taking hydroxyzine, trazodone, and clonidine on an as needed basis for anxiety and sleep. Pt does not feel that any medications have been particularly effective during her history of psychiatric treatment. We did discuss the potential to resume gabapentin as a possible agent to provide mood stability in addition to targeting increased impulsivity related to patient's history of substance abuse. As patient states she is concerned about her potential to abuse the medication and is therefore unwilling to take the medication. She declines to resume valproic acid, and declines any other medication considerations. Pt maintains that she has not been experiencing any mood-related concerns and states she is not suicidal. In regard to treatment, patient states she follows actively with Dr. Cisse for psychiatric medication management and with Temo adam for therapy. Pt also remains in contact with individuals she has met through a women's AA group. Pt was encouraged to consider inpatient rehab or intensive outpatient substance abuse programs, which she is unwilling to do at this time. Pt declined to sign ROIs for any outpatient supports, but did sign for Dr. Cisse to allow for coordination of care. She does not feel that inpatient psychiatric treatment is necessary at this time, and continues to deny SI/HI, SIB, A/V hallucinations, paranoia, and other acute psychosis. She denies other needs or concerns from our service at this time. Physical Exam Psychiatric Orientation: alert, oriented x 3 and + guarded (superficially cooperative ) Apperance: appropriately dressed, + disheveled and appeared stated age Eye Contact: good eye contact Motor Behavior: no abnormal motor movements (observed while laying in bed) Speech: normal rate/rhythm/volume of speech Affect: + blunted affect (appearing subdued and uncomfortable ) Mood: no depressed mood ("I'm fine when I'm not using") Thought Process: goal directed thought process Thought Content: reality based without delusions; no hopelessness Suicidal Thoughts: denies suicidal thoughts and denies suicidal intent Homicidal Thoughts: denies homicidal thoughts Hallucinations: no auditory hallucinations and no visual hallucinations Cognition: attention grossly intact and language grossly intact Estimated Intelligence: consistent with education level Insight: + fair insight Judgement: + poor judgement Vital Signs (Past 24 Hours) Last Vital Signs Temp 37.1 C 03/17/20 07:14 Pulse 74 03/17/20 07:14 Resp 18 03/17/20 07:14 BP 124/78 03/17/20 07:14 Pulse Ox 97 03/17/20 07:14 Results & Data ([facility]) Laboratory Results Laboratory Results - last 24 hr 03/16/20 03/17/20 03/17/20 10:08 05:28 05:28 WBC 7.26 RBC 4.31 Hgb 12.8 Hct 39.5 MCV 91.6 MCH 29.7 MCHC 32.4 RDW Std Deviation 50.2 H RDW Coeff of Ace 14.8 H Plt Count 272 MPV 9.2 Immature Gran % (Auto) 0.0 Neut % (Auto) 66.7 Lymph % (Auto) 26.7 [place] % (Auto) 5.4 Eos % (Auto) 1.1 Baso % (Auto) 0.1 Immature Gran # (Auto) 0.00 Neut # (Auto) 4.84 Lymph # (Auto) 1.94 [place] # (Auto) 0.39 Eos # (Auto) 0.08 Baso # (Auto) 0.01 Sodium 144 Potassium 3.6 Chloride 114 H Carbon Dioxide 25 Anion Gap 5.0 BUN 7 Creatinine 0.63 D Est Cr Clr Drug Dosing 120.1 Est GFR ( Amer) 118.7 Est GFR (Non-Af Amer) 102.4 BUN/Creatinine Ratio 11.1 Glucose 119 H POC Glucose 137 H Calcium 8.7 Magnesium 2.2 Current Inpatient Medications Current Inpatient Medications: Current Inpatient Medications Acetaminophen (Tylenol) 650 mg PO Q4H PRN PRN Reason: Pain or Fever Stop: 04/15/20 08:20 Atorvastatin Calcium (Lipitor) 10 mg PO DAILY [facility] Stop: 04/15/20 08:59 Last Admin: 03/17/20 07:31 Dose: 10 mg Documented by: Cetirizine HCl (Zyrtec) 10 mg PO QAM [facility] Stop: 04/15/20 08:59 Last Admin: 03/17/20 07:31 Dose: 10 mg Documented by: Gadobutrol (Gadavist 65ml) 8.5 ml IV ONCE PRN PRN Reason: Interaction Checking Stop: 03/20/20 16:33 Last Admin: 03/16/20 16:35 Dose: 8.5 ml Documented by: Lorazepam (Ativan) 1 mg in 2 mls @ 0.5 mls/min IV Q10M PRN PRN Reason: seizures Stop: 04/15/20 08:20 Last Admin: 03/16/20 10:08 Dose: 0.5 mls/min Documented by: Promethazine HCl 12.5 mg/ (Sodium Chloride) 50.5 mls @ 202 mls/hr IV Q6H PRN PRN Reason: Nausea And Vomiting Stop: 04/15/20 08:20 Last Infusion: 03/16/20 22:48 Dose: Infused Documented by: Potassium Chloride/Dextrose/Sod Cl (D5nss + 20meq Kcl) 20 meq in 1,000 mls @ 125 mls/hr IV .Q8H [facility] Stop: 04/15/20 10:29 Last Admin: 03/17/20 06:14 Dose: 125 mls/hr Documented by: Lorazepam (Ativan) 0.5 mg in 1 mls @ 1 mls/min IV Q4H PRN PRN Reason: Anxiety/Agitation Stop: 04/15/20 12:36 Last Admin: 03/16/20 22:42 Dose: 1 mls/min Documented by: Pantoprazole Sodium (Protonix) 40 mg PO DAILY [facility] Stop: 04/15/20 08:59 Last Admin: 03/17/20 07:31 Dose: 40 mg Documented by: Sucralfate (Carafate Tab) 1 gm PO BID [facility] Stop: 04/15/20 08:59 Last Admin: 03/17/20 07:32 Dose: 1 gm Documented by: Mental Health & Subst Abuse Tx Psychiatrist Name of Psychiatrist: Dr. Cisse - [facility] Name of Therapist: Temo Carmona
--- NOTE | 2020-03-17 14:21 | Hospitalist Progress Note ---
Date of Service March 17, 2020 Assessment & Plan (1) Seizure: 55 year old female with history of Chronic Back Pain, Mood disorder, Smoking, Alcoholism, GERD, presenting s/p Fall at home, GTC seizure at the ER. New onset seizure - possible drug withdrawal- from Corcidin Psych meds? although patient reports she last took her Psych meds 3 weeks ago - MRI Brain: Limited study showing no gross abnormality CT head unrevealing - EEG pending - electrolytes ok - No recurrences so far - Neurologist consulted-Dr. Jaren Morales Does not recommend initiation of antiseizure medication at this time - seizure precautions Continue to monitor closely PT OT evaluation Syncope -Likely secondary to orthostasis - echo: Left ventricle is normal in size Borderline concentric LVH Left ventricular systolic function is normal Left ventricular wall motion is normal Grade 1 diastolic dysfunction There is no significant valvular disease EKG qT 512--> improved to 484 Orthostatic VS-pending - PT/OT eval Drug Abuse History of bipolar disorder - admits to taking Corcidin cough syrup "to relax" stopped taking usual psych meds 3 weeks ago - denies suicidal ideation - Psych consulted, waiting recommendations Smoking and alcoholism - Counseling done May need referral to alcohol/substance abuse rehab Abnormal Cervical spine CT - will need cervical MRI with contrast once more stable DVT prophylaxis -SCDs only in light of seizures Disposition -Lives with family Will need referral to alcohol/substance abuse rehab Dejan Jackson MD Admission and Anticipated Discharge Date Admission Date: March 16, 2020 Subjective Follow-up for possible drug withdrawal Seen with BETTY Colon at the bedside Patient is resting in bed, not in distress, appears more comfortable than yesterday Still having some nausea but less, no vomiting today Denies abdominal pain, tolerating clear liquids well Denies headache, dizziness, chest pain, shortness of breath, palpitations States mood is improved today, denies suicidality Denies other symptoms Review of Systems Review of Systems: All systems reviewed & are unremarkable except as noted in HPI & below Physical Exam Physical Exam: General- oriented x 3, not in distress, speaks in sentences with no effort or accessory muscle use somewhat anxious but improved compared to yesterday Eyes- anicteric Neck- no JVD Lungs- clear breath sounds bilaterally, no rales/wheezes Heart- normal rate, regular rhythm; no murmurs Abdomen- normal bowel sounds, nondistended, soft, nontender Extremities- no pretibial edema, no calf tenderness Neuro- alert, oriented x 3; no gross focal neurologic deficits Skin- warm & dry Psych- calm, cooperative, somewhat anxious, no suicidal ideation Results & Data Results & Data ([facility]) Vital Signs (Past 12 Hours) Vital Signs Temp Pulse Resp BP Pulse Ox 03/17/20 07:14 37.1 C 74 18 124/78 97 03/17/20 04:00 37.1 C 83 20 135/76 97 Laboratory Results Laboratory Results - last 24 hr 03/17/20 03/17/20 05:28 05:28 WBC 7.26 RBC 4.31 Hgb 12.8 Hct 39.5 MCV 91.6 MCH 29.7 MCHC 32.4 RDW Std Deviation 50.2 H RDW Coeff of Ace 14.8 H Plt Count 272 MPV 9.2 Immature Gran % (Auto) 0.0 Neut % (Auto) 66.7 Lymph % (Auto) 26.7 Bee % (Auto) 5.4 Eos % (Auto) 1.1 Baso % (Auto) 0.1 Immature Gran # (Auto) 0.00 Neut # (Auto) 4.84 Lymph # (Auto) 1.94 Bee # (Auto) 0.39 Eos # (Auto) 0.08 Baso # (Auto) 0.01 Sodium 144 Potassium 3.6 Chloride 114 H Carbon Dioxide 25 Anion Gap 5.0 BUN 7 Creatinine 0.63 D Est Cr Clr Drug Dosing 120.1 Est GFR ( Amer) 118.7 Est GFR (Non-Af Amer) 102.4 BUN/Creatinine Ratio 11.1 Glucose 119 H Calcium 8.7 Magnesium 2.2
--- NOTE | 2020-03-17 22:22 | Electrocardiogram Report ---
Test Reason : Blood Pressure : / mmHG Vent. Rate : 066 BPM Atrial Rate : 066 BPM P-R Int : 130 ms QRS Dur : 090 ms QT Int : 450 ms P-R-T Axes : 042 082 076 degrees QTc Int : 472 ms Normal sinus rhythm When compared with ECG of 16-MAR-2020 04:09, Nonspecific T wave abnormality no longer evident in Anterior leads Confirmed by Amador Kilgore ([id number]) on 03/17/2020 10:22:25 PM Referred By: REFERRED SELF Confirmed By:Amador Kilgore
[2020-03-18] MEDS: D5NSS + 20MEQ KCL 20 MEQ/1,000 ML BAG IV SCH ×2 (06:29→13:43)
[2020-03-18 06:41] LABS: BUN Creatinine Ratio 8.6 (10-20); Creatinine Clr Calc Pharmacy 145.5 ml/min; Est GFR (African American) 126.4; Est GFR (Non-African American) 109.1; Magnesium 1.8 mg/dl (1.8-2.4); Potassium 4.1 mmol/L (3.5-5.1)
[2020-03-18] MEDS: ATORVASTATIN 10 MG TAB PO SCH (07:54)
[2020-03-18] MEDS: SUCRALFATE 1 GM TAB PO SCH (07:54)
[2020-03-18] MEDS: PANTOprazole 40 MG TAB PO SCH (07:54)
[2020-03-18] MEDS: CETIRIZINE HCL 10 MG TABLET PO SCH (07:54)
--- NOTE | 2020-03-18 14:09 | Hospitalist Progress Note ---
Date of Service March 18, 2020 Assessment & Plan (1) Seizure: 55 year old female with history of Chronic Back Pain, Mood disorder, Smoking, Alcoholism, GERD, presenting s/p Fall at home, GTC seizure at the ER. New onset seizure - possible drug withdrawal- from Corcidin Psych meds? although patient reports she last took her Psych meds 3 weeks ago - MRI Brain: Limited study showing no gross abnormality CT head unrevealing - EEG pending - electrolytes ok - No recurrences since admission - Neurologist consulted-Dr. Jaren Morales Does not recommend initiation of antiseizure medication at this time - seizure precautions Continue to monitor closely PT recommends patient may return home Syncope -Likely secondary to orthostasis - echo: Left ventricle is normal in size Borderline concentric LVH Left ventricular systolic function is normal Left ventricular wall motion is normal Grade 1 diastolic dysfunction There is no significant valvular disease EKG qT 512--> improved to 484 Orthostatic VS-pending - PT recommends patient may return home Drug Abuse History of bipolar disorder - admits to taking Corcidin cough syrup "to relax" stopped taking usual psych meds 3 weeks ago - denies suicidal ideation - Psych consulted, recommends PRN Vistaril and trazodone as needed for anxiety Follow-up with outpatient psychiatrist for further evaluation Smoking and alcoholism - Counseling done May need referral to alcohol/substance abuse rehab Abnormal Cervical spine CT - will need cervical MRI with contrast as outpatient and possible oncology referral DVT prophylaxis -SCDs only in light of seizures Frequent ambulation advised Disposition -Lives with family May need referral to alcohol/substance abuse rehab Dejan Jackson MD Admission and Anticipated Discharge Date Admission Date: March 16, 2020 Subjective For possible drug withdrawal Seen resting in bed, comfortable, not in distress Appears better overall less weak looking States that she feels better overall No nausea or vomiting No chest pain, shortness of breath, headache, dizziness, palpitations Denies tremors, hallucinations, confusion No fevers, chills States mood is okay, denies suicidality No other symptoms Review of Systems Review of Systems: All systems reviewed & are unremarkable except as noted in HPI & below Physical Exam Physical Exam: General- oriented x 3, not in distress, speaks in sentences with no effort or accessory muscle use Eyes- anicteric Neck- no JVD Lungs- clear BS, no crackles or wheezing bilaterally Heart- normal rate, regular rhythm; no murmurs Abdomen- normal bowel sounds, nondistended, soft, nontender Extremities- no pretibial edema, no calf tenderness Neuro- alert, oriented x 3; no gross focal neurologic deficits Skin- warm & dry Results & Data Results & Data ([facility]) Vital Signs (Past 12 Hours) Vital Signs Temp Pulse Resp BP Pulse Ox 03/18/20 12:31 36.5 C 85 20 157/91 H 99 03/18/20 04:00 36.7 C 63 20 124/77 100 Laboratory Results Laboratory Results - last 24 hr 03/17/20 03/18/20 03/18/20 20:12 05:40 11:42 Sodium 142 Potassium 4.1 Chloride 112 H Carbon Dioxide 26 Anion Gap 4.0 BUN 5 L Creatinine 0.52 L Est Cr Clr Drug Dosing 145.5 Est GFR ( Amer) 126.4 Est GFR (Non-Af Amer) 109.1 BUN/Creatinine Ratio 8.6 L Glucose 105 H POC Glucose 99 93 Calcium 9.0 Magnesium 1.8
--- NOTE | 2020-03-18 16:31 | Discharge Summary ---
Date of Service March 18, 2020 Admission HPI Per Admitting Provider History obtained from patient and records. Medical history significant for chronic back pain 2 to herniated disc as per patient, mood disorder, hyperlipidemia, GERD, past alcohol abuse as per records, ongoing tobacco abuse. Recent confinement November 2023 anaphylaxis secondary to Bactrim. Patient has not been taking her psych meds for more than a month now for unclear reasons. Admits to daily intake of OTC Coricidin (dextromethorphan plus chlorpheniramine components) cough syrup for over a year out to get high. Although her mood not the best, patient denies suicidality. Early this morning patient came out of the bathroom and began feeling woozy falling backwards and hitting her head. Not sure if she passed out. Denies chest pain, S OB. Nausea and emesis post incident. No witnessed seizures/incontinence at home as per patient. No headache. Mild neck pain. Patient brought to the ER for evaluation. At the ER, generalized tonic-clonic seizure episode witnessed by staff. No prior episodes as per patient. MEDICAL HISTORY: As above. SURGERIES: She has had cholecystostomy, partial hysterectomy, bladder sling procedure , knee surgery. FAMILY HISTORY: Hypertension. Parkinson's disease; no seizure disorder PERSONAL AND SOCIAL HISTORY: 1 pack daily. 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 Admission Exam Per Admitting Provider GENERAL: Slightly anxious, depressed mood, no respiratory distress SKIN: Normal color, warm HEENT: [place] palpebral conjunctivae, no ptosis, dry buccal mucosa, edentulous NECK : Mild limitation in neck motion , no tenderness CHEST : CTA, no tenderness HEART : Tachycardic , no obvious murmurs ABDOMEN: Some distention, nontender EXTREMITIES : No LE swelling/tenderness, no other conspicuous deformities noted NEUROLOGIC : Coherent, no facial asymmetry, no other gross focality Principal Diagnosis SEIZURE EPISODE, SYNCOPE, POSSIBLY RELATED TO DRUG WITHDRAWAL Discharge Exam General- oriented x 3, not in distress, speaks in sentences with no effort or accessory muscle use Eyes- anicteric Neck- no JVD Lungs- clear BS, no crackles or wheezing bilaterally Heart- normal rate, regular rhythm; no murmurs Abdomen- normal bowel sounds, nondistended, soft, nontender Extremities- no pretibial edema, no calf tenderness Neuro- alert, oriented x 3; no gross focal neurologic deficits Skin- warm & dry Discharge Data Allergies Allergy/AdvReac Type Severity Reaction Status Date / Time buprenorphine [From Subutex] Allergy Severe Anaphylaxis Verified 03/16/20 04:27 latex Allergy Severe ANAPHYLAXIS Verified 03/16/20 04:27 sulfamethoxazole Allergy Severe Anaphylaxis Verified 03/16/20 04:27 [From Bactrim] trimethoprim [From Bactrim] Allergy Severe Anaphylaxis Verified 03/16/20 04:27 prochlorperazine AdvReac Intermediate dystonic Verified 03/16/20 04:27 [From Compazine] reaction Consultations 03/16/20 06:15 ED Decision to Admit Stat 03/16/20 08:21 Consult Psychiatry Routine 03/16/20 08:46 Consult Neurology Routine Ordered Studies 03/16/20 04:11 CT cervical spine wo con Urgent Normal cervical lordosis. Vertebral bodies maintain normal height and alignment. Mild intervertebral disc height loss diffusely. Trace disc osteophyte complex at C3-4. Evaluation of the soft tissues of the spinal canal demonstrates disc bulge at this level with mild spinal canal effacement. Mild degenerative changes of the atlantodental articulation. Trace facet arthropathy and uncovertebral hypertrophy. Mild osseous neural foraminal narrowing suggested at C3-4. Small lucent lesions extensively noted throughout the cervical spine vertebral bodies. These do not result in cortical breakthrough and are largely subcentimeter. No acute fracture or subluxation. Skull base intact. Paraspinal soft tissues within normal limits. IMPRESSION: 1. No acute fracture or subluxation. 2. Minimal degenerative change. 3. Multiple subcentimeter lucent lesions in the cervical vertebral bodies. These are nonspecific and are not convincingly on a degenerative basis. Please ensure the absence of underlying malignancy or lymphoproliferative disease. Consider outpatient follow-up contrast-enhanced MR of the cervical spine and/or oncology follow-up. CT head/brain wo con Urgent FINDINGS: No acute intracranial hemorrhage, midline shift or mass effect is present. The ventricular system is unremarkable. The basilar cisterns are patent. No extra-axial collections are present. There are no findings to suggest acute dural sinus thrombosis or acute territorial infarct. No significant calvarial abnormalities are present. Visualized portions of the sinuses and mastoid air cells are clear. IMPRESSION: 1. No acute intracranial findings. 2. No calvarial fracture. 03/16/20 08:21 MR brain seizure wo con Routine FINDINGS: Very limited study as the patient was unable to complete the exam. Diffusion-weighted images show no evidence for an acute ischemic process. The ventricular system is midline. Coronal images show unremarkable signal characteristics throughout. Patient was unable to tolerate contrast administration. No gross abnormality is identified within this limited study. IMPRESSION: Limited study showing no gross abnormality. Hospital Course (1) Seizure: 55 year old female with history of Chronic Back Pain, Mood disorder, Smoking, Alcoholism, GERD, presenting s/p Fall at home, GTC seizure at the ER. New onset seizure - possible drug withdrawal- from Corcidin Psych meds? although patient reports she last took her Psych meds 3 weeks ago - MRI Brain: Limited study showing no gross abnormality CT head unrevealing - EEG pending - electrolytes ok No recurrences since admission - Neurologist consulted-Dr. Jaren Morales Does not recommend initiation of antiseizure medication at this time - PT recommends patient may return home - outpatient Neurology ff up [place] [employer] reporting form completed and will be submitted in light of seizure, medication misuse- Corcidin Syncope - Likely secondary to orthostasis - echo: Left ventricle is normal in size Borderline concentric LVH Left ventricular systolic function is normal Left ventricular wall motion is normal Grade 1 diastolic dysfunction There is no significant valvular disease EKG qT 512--> improved to 484 repeat EKG as outpatient ff up QT corrected - ambulating in the hallways with no dizziness, weakness, etc. - PT recommends patient may return home Drug Abuse History of bipolar disorder - admits to taking Corcidin cough syrup "to relax" stopped taking usual psych meds 3 weeks ago - denies suicidal ideation - Psych consulted, recommends only to continue PRN Vistaril and trazodone as needed for anxiety avoid Trazodone given prolonged QT Follow-up with outpatient psychiatrist for further evaluation Smoking and alcoholism - Counseling done May need referral to alcohol/substance abuse rehab Abnormal Cervical spine CT - will need cervical MRI with contrast as outpatient and possible oncology referral DVT prophylaxis -SCDs only in light of seizures Frequent ambulation advised Disposition d/c home ff up with PCP this week ff up with Neurology in 2 weeks plan of care discussed with patient in detaill all questions answered she is understanding, agreeable, comfortable with plan of care Total Time Total Time Spent Total Time Spent (In Minutes): > 30 minutes Discharge Plan Discharge Items Patient Disposition: Home - Self-Care Reason For Visit: NEW ONSET SEIZURE Discharge Diagnosis: Seizure, syncopal episode Activity: Resume your previous activity Activity Comment: Resume activity gradually as tolerated, no heavy exertion Lifting: Wait until after follow-up appointment Exercise/Sports: Wait until after follow-up appointment Driving/Machine Use: No driving until reevaluated and allowed by primary care physician Non-emergency contact: Primary Care Provider Call non-emergency contact if: you have any medication questions, your symptoms worsen and you have a fever Follow-up/Referrals: Victorina Dotson, [Primary Care Provider] - Diet: Regular and Low Fiber Addtl Attending Provider Instructions: Drink plenty of fluids. Always stay well-hydrated You may use Vistaril three times a day as needed for anxiety. If you have worsening symptoms of depression or anxiety, please contact primary care physician or return to the ER immediately. Do not start any new medication without consulting with your primary care physician first. No alcohol or smoking. Call 911 immediately if with recurrence of seizure. Call primary care physician or return to the ER immediately if you have worsening of symptoms including weakness, dizziness, Nausea or vomiting, diarrhea, abdominal pain, fevers or chills. In light of recently having a seizure episode, No driving until re-evaluated and allowed by Primary Care Physician. Please follow-up with your primary care physician next week. The clinic will be calling you for the appointment schedule. Follow-up also with your psychiatrist in 1 to 2 weeks. Pending Studies at Discharge: Yes Studies:: Cervical spine MRI with contrast to be arranged by primary care physician Stand-Alone Forms: My [facility], Smoking Cessation Medications and DC Order Prescriptions: Continued cetirizine 10 mg Tablet 10 mg PO QAM 14 Days Qty: 14 RF: 2 epinephrine [EpiPen 2-Julian] 0.3 mg/0.3 mL auto-injector 0.3 mg IM UD PRN (Reason: anaphylaxis) Qty: 2 RF: 2 atorvastatin 10 mg tablet 10 mg PO DAILY RF: 0 hydroxyzine pamoate 25 mg capsule 25 mg PO TID PRN (Reason: Anxiety) RF: 0 sucralfate 1 gram tablet 1 g PO BID RF: 0 omeprazole 20 mg capsule,delayed release(DR/EC) 20 mg PO DAILY RF: 0 Digestive Probiotic 3 billion cell Capsule 250 cap PO BID RF: 0 ibuprofen 600 mg Tablet 600 mg PO Q6H PRN (Reason: Pain) RF: 0 Clove Oil 1 dose topical DIRECTED RF: 0 Lidocaine Viscous 2 % Solution 2 % PO DIRECTED PRN (Reason: Pain) RF: 0 Changed acetaminophen [Tylenol Extra Strength] 500 mg Tablet 1,000 mg PO TID PRN (Reason: Pain) Qty: 0 RF: 0 Discontinued gabapentin 600 mg tablet 600 mg PO QID Qty: 120 RF: 2 alprazolam [Xanax] 0.5 mg tablet 0.5 mg PO TID PRN (Reason: Anxiety) RF: 0 citalopram [Celexa] 10 mg tablet 10 mg PO BID RF: 0 clonidine HCl 0.1 mg tablet 0.1 mg PO BID RF: 0 diphenhydramine HCl [Benadryl] 25 mg capsule 25 mg PO Q6 PRN (Reason: Itching) RF: 0 divalproex 500 mg tablet,delayed release (DR/EC) 500 mg PO BID RF: 0 trazodone 150 mg tablet 150 mg PO HS RF: 0 bupropion HCl 300 mg tablet extended release 24 hr 300 mg PO QAM RF: 0 dicyclomine 20 mg Tablet 20 mg PO Q6 RF: 0 Discharge Orders: Discharge Order (Routine); Ordered 03/18/20 Ordered By: Dejan Jackson Admission Data Admit Date/Time: 03/16/20 17:15 Attending Provider: Dejan Jackson Admit Provider: Isra Arceo Primary Care Provider: Victorina Dotson Other Providers: Isra Arceo ; Ember Flores ; Jaren Morales Other Interventions: Discharge Summary Assessment (RN) Last Done: 03/18/20 16:02 DC Date/Time DO NOT enter until pt leaves facility: 03/18/20 17:17
[2020-03-22 09:49] LABS: MDA negative; MDEA negative; MDMA (Ecstasy) Urine, Confirm negative
== END 2020-03-18 17:17 | disposition home or self-care (01) | DRG 101 ==
LOC: ED 04:01 → 2N 04:01